=== PATIENT | female | born 1965 | race American Indian/Alaskan Native ===

== ENCOUNTER 2020-03-10 19:25 | Inpatient (IN) | payer MEDICAID ==
[2020-03-10] MEDS ORDERED: Acetaminophen 500 MG Tab PO ONE (20:39)
[2020-03-10] MEDS ORDERED: Sodium Chloride 0.9% 1,000 ML IV SCH ×2 (20:45→23:16)
--- NOTE | 2020-03-10 20:46 | EDM.PDOC ---
ED HPI GENERAL MEDICAL PROBLEM - General Chief Complaint: Skin Complaint Stated Complaint: REDNESS ON LEFT BREAST, ARM Time Seen by Provider: 03/10/20 20:23 Source of Information: Reports: Patient History Limitations: Reports: No Limitations - History of Present Illness INITIAL COMMENTS - FREE TEXT/NARRATIVE: 54 yo female presents to the ER with fever associated with left tender red and hot skin of her breast. PMHx of breast CA with lumpectomy and lymph node removal on the left. redness and pain started 4 days ago and has progressively worsened. She did spend time outside at her brothers house the day that the redness began and thinks she may have alpohnso bit by something. She has not taken her medications for the day. Her blood pressure on arrival was elevated. 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: Musculoskeletal History: Reports: Fibromyalgia, RA Endocrine/Metabolic History: Reports: Diabetes, Type II Oncologic (Cancer) History: Reports: Breast - Infectious Disease History Infectious Disease History: Reports: Chicken Pox - Past Surgical History GI Surgical History: Reports: Cholecystectomy, Hernia, Inguinal, Hernia Repair/Other Female Surgical History: Reports: Section, D&C Oncologic Surgical History: Reports: Lumpectomy Social & Family History - Tobacco Use Smoking Status *Q: Current Every Day Smoker Years of Tobacco use: 40 Packs/Tins Daily: 0.5 - Caffeine Use Caffeine Use: Reports: Coffee, Tea Caffeine Use Comment: 1.5 cups of coffee per day - Recreational Drug Use Recreational Drug Use: Yes Drug Use in Last 12 Months: No Recreational Drug Type: Reports: Marijuana/Hashish ED ROS GENERAL - Review of Systems Review Of Systems: See Below Constitutional: Reports: Fever, Chills, Fatigue Respiratory: Denies: Shortness of Breath, Wheezing Cardiovascular: Denies: Chest Pain GI/Abdominal: Reports: Nausea. Denies: Abdominal Pain Skin: Reports: Rash Neurological: Denies: Dizziness, Headache ED EXAM, SKIN/RASH Exam: See Below Exam Limited By: No Limitations General Appearance: Alert, WD/WN, No Apparent Distress Head: Atraumatic, Normocephalic Neck: Supple, Non-Tender Respiratory/Chest: No Respiratory Distress, Lungs Clear, Normal Breath Sounds. No: Crackles, Rhonchi, Wheezing Cardiovascular: Regular Rate, Rhythm, No Murmur GI/Abdominal: Normal Bowel Sounds, Soft, Non-Tender Skin: Warm, Dry, Intact, Rash, Other (warm to the touch, moderate erythema of entire left breast radiating into upper left arm. very painful to the touch, no source wound identified) Course - Vital Signs Last Recorded V/S: Last Vital Signs Temp 38.8 C H 03/10/20 21:17 Pulse 122 H 03/10/20 20:16 Resp 20 03/10/20 20:16 BP 171/101 H 03/10/20 20:16 Pulse Ox 98 03/10/20 20:16 - Orders/Labs/Meds Orders: Active Orders 24 hr Category Date Time Status CULTURE BLOOD [BC] Stat Lab 03/10/20 20:45 Received CULTURE BLOOD [BC] Stat Lab 03/10/20 20:45 Received Sodium Chloride 0.9% [Normal Saline] 1,000 ml Med 03/10/20 20:45 Active IV ASDIRECTED Medication Orders Sodium Chloride (Normal Saline) 1,000 mls @ 250 mls/hr IV ASDIRECTED MADYSON Last Admin: 03/10/20 20:52 Dose: 250 mls/hr Documented by: TEODORO Labs: Laboratory Tests 03/10/20 03/10/20 03/10/20 Range/Units 20:37 20:45 20:45 WBC 15.0 H (4.5-11.0) K/uL RBC 4.82 (3.30-5.50) M/uL Hgb 13.5 D (12.0-15.0) g/dL Hct 40.2 (36.0-48.0) % MCV 83 (80-98) fL MCH 28 (27-31) pg MCHC 34 (32-36) % Plt Count 225 (150-400) K/uL Neut % (Auto) 86 H (36-66) % Lymph % (Auto) 10 L (24-44) % [place] % (Auto) 3 (2-6) % Eos % (Auto) 0 L (2-4) % Baso % (Auto) 0 (0-1) % Sodium 128 L (140-148) mmol/L Potassium 3.7 (3.6-5.2) mmol/L Chloride 94 L (100-108) mmol/L Carbon Dioxide 20 L (21-32) mmol/L Anion Gap 17.7 H (5.0-14.0) mmol/L BUN 12 (7-18) mg/dL Creatinine 1.1 H D (0.6-1.0) mg/dL Est Cr Clr Drug Dosing 49.31 mL/min Estimated GFR (MDRD) 51 L (>60) Glucose 348 H (74-106) mg/dL Lactic Acid 1.9 (0.4-2.0) mmol/L Calcium 8.9 (8.5-10.1) mg/dL Total Bilirubin 0.6 (0.2-1.0) mg/dL AST 32 (15-37) U/L ALT 37 (12-78) U/L Alkaline Phosphatase 101 (46-116) U/L Total Protein 7.7 (6.4-8.2) g/dL Albumin 2.7 L (3.4-5.0) g/dL Globulin 5.0 H (2.3-3.5) g/dL Albumin/Globulin Ratio 0.5 L (1.2-2.2) Meds: Medications Generic Name Dose Route Start Last Admin Trade Name Freq PRN Reason Stop Dose Admin Sodium Chloride 1,000 mls @ 250 mls/hr 03/10/20 20:45 03/10/20 20:52 Normal Saline IV 250 mls/hr ASDIRECTED MADYSON Administration Discontinued Medications Generic Name Dose Route Start Last Admin Trade Name Freq PRN Reason Stop Dose Admin Acetaminophen 1,000 mg 03/10/20 20:39 03/10/20 20:59 Tylenol Extra Strength PO 03/10/20 20:40 1,000 mg ONETIME ONE Administration Clindamycin Phosphate 300 mg/ 52 mls @ 150 mls/hr 03/10/20 20:50 08/16/20 20:56 Sodium Chloride IV 03/10/20 21:10 150 mls/hr ONETIME ONE Administration Departure - Departure Time of Disposition: 21:46 Disposition: Home, Self-Care 01 Condition: Fair Clinical Impression: Cellulitis of breast - Discharge Information *PRESCRIPTION DRUG MONITORING PROGRAM REVIEWED*: Not Applicable *COPY OF PRESCRIPTION DRUG MONITORING REPORT IN PATIENT SHAKIRA: Not Applicable Referrals: Ada Rojo I, SLUICE TENDER [Primary Care Provider] - Forms: ED Department Discharge Sepsis Event Note (ED) - Evaluation Sepsis Screening Result: No Definite Risk - Focused Exam Vital Signs: Vital Signs Temp Pulse Resp BP Pulse Ox 03/10/20 21:17 38.8 C H 03/10/20 20:16 38.9 C H 122 H 20 171/101 H 98 03/10/20 20:06 38.9 C H 122 H 20 171/101 H 98 - My Orders Last 24 Hours: My Active Orders 03/10/20 20:45 CULTURE BLOOD [BC] Stat CULTURE BLOOD [BC] Stat Sodium Chloride 0.9% [Normal Saline] 1,000 ml IV ASDIRECTED - Assessment/Plan Last 24 Hours: My Active Orders 03/10/20 20:45 CULTURE BLOOD [BC] Stat CULTURE BLOOD [BC] Stat Sodium Chloride 0.9% [Normal Saline] 1,000 ml IV ASDIRECTED
[2020-03-10] MEDS ORDERED: Ondansetron 4 MG Tab.DIS PO PRN (23:16)
[2020-03-10] MEDS ORDERED: Insulin Regular, Human 100 Units/ML 3 ML Vial SUBCUT ONE (23:16)
[2020-03-10] MEDS ORDERED: LORazepam 2 MG/ML SDV IV PRN (23:16)
[2020-03-10] MEDS ORDERED: Clotrimazole 1% Crm 30 GM Tube TOP SCH (23:16)
[2020-03-10] MEDS ORDERED: Albuterol 0.083% 2.5 MG/3 ML Neb Soln NEB PRN (23:16)
[2020-03-10] MEDS ORDERED: Acetaminophen 325 MG Tab PO PRN (23:16)
[2020-03-10] MEDS ORDERED: Docusate Sodium 100 MG Cap PO PRN (23:16)
[2020-03-11] MEDS: Acetaminophen/HYDROcodone 325-5 MG Tab PO PRN ×6 (00:03→21:30)
[2020-03-11] MEDS: Pregabalin 100 MG Cap PO SCH ×4 (00:04→20:24)
--- NOTE | 2020-03-11 00:32 | PCM.HP.2 ---
H&P History of Present Illness - General Date of Service: 03/10/20 Admit Problem/Dx: Admission Diagnosis/Problem Admission Diagnosis/Problem Cellulitis of breast Source of Information: Patient, Provider, RN History Limitations: Reports: No Limitations - History of Present Illness Initial Comments - Free Text/Narative: chief complaint: rash 54 yo female presents to the ER with fever associated with left tender red and hot skin of her breast. PMHx of breast CA with lumpectomy and lymph node removal on the left. redness and pain started 4 days ago and has progressively w orsened. She did spend time outside at her brothers house the day that the redness began and thinks she may have alphonso bit by something. She has not taken her medications for the day. Her blood pressure on arrival was elevated. She has had a large amount of family stress and feels "I haven't been caring for myself lately" Onset of Symptoms: Reports: Gradual Symptom Onset Date: 03/07/20 Duration of Symptoms: Reports: Day(s): (4), Getting Worse Location: Reports: Chest, Lower Extremity, Left Quality: Reports: Ache, Pressure Severity: Severe Improves with: Reports: None Worsens with: Reports: None Associated Symptoms: Reports: Fever/Chills, Loss of Appetite, Nausea/Vomiting Left Breast Pain Score (Numeric/FACES): 7 - Related Data Allergies/Adverse Reactions: Allergies Allergy/AdvReac Type Severity Reaction Status Date / Time morphine Allergy Itching Verified 03/10/20 20:18 Home Medications: Home Meds Pregabalin [Lyrica] 100 mg PO TID 10/09/14 [History] atenoloL [Atenolol] 50 mg PO DAILY 11/27/14 [History] Past Medical History Cardiovascular History: Reports: High Cholesterol, Hypertension 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: Musculoskeletal History: Reports: Fibromyalgia, RA Endocrine/Metabolic History: Reports: Diabetes, Type II Oncologic (Cancer) History: Reports: Breast - Infectious Disease History Infectious Disease History: Reports: Chicken Pox - Past Surgical History GI Surgical History: Reports: Cholecystectomy, Hernia, Inguinal, Hernia Repair/Other Female Surgical History: Reports: Section, D&C Oncologic Surgical History: Reports: Lumpectomy Social & Family History - Family History Family Medical History: Noncontributory - Tobacco Use Smoking Status *Q: Current Every Day Smoker Years of Tobacco use: 30 Packs/Tins Daily: 0.5 Used Tobacco, but Quit: No Second Hand Smoke Exposure: No - Caffeine Use Caffeine Use: Reports: Soda Caffeine Use Comment: 1.5 cups of coffee per day - Recreational Drug Use Recreational Drug Use: Yes Drug Use in Last 12 Months: No Recreational Drug Type: Reports: Marijuana/Hashish Recreational Drug Use Frequency: Daily - Living Situation & Occupation Living situation: Reports: with Significant Other (lives with SO in [place], [place].) H&P Review of Systems - Review of Systems: Review Of Systems: See Below General: Reports: Fever, Chills, Malaise, Weakness, Fatigue, Decreased Appetite HEENT: Reports: No Symptoms Pulmonary: Reports: No Symptoms Cardiovascular: Reports: No Symptoms Gastrointestinal: Reports: Nausea Genitourinary: Reports: No Symptoms Musculoskeletal: Reports: Muscle Pain (body aches), Muscle Stiffness (left upper arm pain) Skin: Reports: Erythema (left chest extends to left arm and left upper back) Psychiatric: Reports: No Symptoms Neurological: Reports: No Symptoms Hematologic/Lymphatic: Reports: No Symptoms Exam - Exam Exam: See Below - Vital Signs Vital Signs: Last Vital Signs Temp 37.7 C 03/10/20 23:16 Pulse 96 03/10/20 23:16 Resp 18 03/10/20 23:16 BP 127/82 03/10/20 23:16 Pulse Ox 97 03/10/20 23:16 Weight: 65.771 kg - Exam Quality Assessment: DVT Prophylaxis General: Alert, Oriented, Cooperative, Mild Distress HEENT: PERRLA, Hearing Intact, Mucosa Moist & Rector, Nares Patent, Normal Nasal Septum, Posterior Pharynx Clear, Conjunctiva Clear, EOMI, EACs Clear, TMs Clear Neck: Supple, Trachea Midline, 2 Lungs: Clear to Auscultation, Normal Respiratory Effort Cardiovascular: Regular Rate, Regular Rhythm, Normal S1, Normal S2 GI/Abdominal Exam: Normal Bowel Sounds, Soft, Non-Tender, No Organomegaly, No Distention, No Abnormal Bruit, No Mass, Pelvis Stable (Female) Exam: Deferred Rectal (Female) Exam: Deferred Back Exam: Other (left upper back with cellulitis-hot to touch, raised red irregular shaped rash) Extremities: Arm Pain (left arm with redness, warmth, pain), Increased Warmth (left arm), Redness (left arm) Peripheral Pulses: 2+: Radial (L), Radial (R), Dorsalis Pedis (L), Dorsalis Pedis (R) Skin: Warm, Dry, Other (erythematous rash noted to left upper chest, breast, left upper back and extend to left arm to mid forearm.) Neurological: Reflexes Equal Bilateral, Strength Equal Bilateral Neuro Extensive - Mental Status: Alert, Oriented x3, Normal Mood/Affect, Normal Cognition Neuro Extensive - Motor, Sensory, Reflexes: CN II-XII Intact, Normal Gait, Normal Reflexes Psychiatric: Alert, Normal Affect, Normal Mood - Patient Data Lab Results Last 24 hrs: Laboratory Results - last 24 hr 03/10/20 03/10/20 03/10/20 Range/Units 20:37 20:45 20:45 WBC 15.0 H (4.5-11.0) K/uL RBC 4.82 (3.30-5.50) M/uL Hgb 13.5 D (12.0-15.0) g/dL Hct 40.2 (36.0-48.0) % MCV 83 (80-98) fL MCH 28 (27-31) pg MCHC 34 (32-36) % Plt Count 225 (150-400) K/uL Neut % (Auto) 86 H (36-66) % Lymph % (Auto) 10 L (24-44) % [place] % (Auto) 3 (2-6) % Eos % (Auto) 0 L (2-4) % Baso % (Auto) 0 (0-1) % Sodium 128 L (140-148) mmol/L Potassium 3.7 (3.6-5.2) mmol/L Chloride 94 L (100-108) mmol/L Carbon Dioxide 20 L (21-32) mmol/L Anion Gap 17.7 H (5.0-14.0) mmol/L BUN 12 (7-18) mg/dL Creatinine 1.1 H D (0.6-1.0) mg/dL Est Cr Clr Drug Dosing 49.31 mL/min Estimated GFR (MDRD) 51 L (>60) Glucose 348 H (74-106) mg/dL Lactic Acid 1.9 (0.4-2.0) mmol/L Calcium 8.9 (8.5-10.1) mg/dL Total Bilirubin 0.6 (0.2-1.0) mg/dL AST 32 (15-37) U/L ALT 37 (12-78) U/L Alkaline Phosphatase 101 (46-116) U/L Total Protein 7.7 (6.4-8.2) g/dL Albumin 2.7 L (3.4-5.0) g/dL Globulin 5.0 H (2.3-3.5) g/dL Albumin/Globulin Ratio 0.5 L (1.2-2.2) Result Diagrams: 03/10/20 20:37 03/10/20 20:45 Sepsis Event Note - Evaluation Sepsis Screening Result: No Definite Risk - Focused Exam Vital Signs: Vital Signs Temp Pulse Resp BP Pulse Ox 03/10/20 23:16 37.7 C 96 18 127/82 97 03/10/20 23:11 36.0 C L 03/10/20 21:50 109 H 120/79 96 03/10/20 21:20 119 H 150/91 H 97 03/10/20 21:17 38.8 C H 03/10/20 20:45 118 H 141/89 H 98 03/10/20 20:16 38.9 C H 122 H 20 171/101 H 98 03/10/20 20:06 38.9 C H 122 H 20 171/101 H 98 - Problem List (1) Cellulitis SNOMED Code(s): 124340684 ICD Code: L03.90 - CELLULITIS, UNSPECIFIED Status: Acute Priority: High Current Visit: Yes Qualifiers: Site of cellulitis: trunk Site of cellulitis of trunk: chest wall Qualified Code(s): L03.313 - Cellulitis of chest wall (2) Cellulitis of breast SNOMED Code(s): 23405163 ICD Code: N61.0 - MASTITIS WITHOUT ABSCESS Status: Acute Priority: High Current Visit: Yes (3) Intertrigo SNOMED Code(s): 12973454 ICD Code: L30.4 - ERYTHEMA INTERTRIGO Status: Acute Priority: High Current Visit: Yes (4) Tobacco use SNOMED Code(s): 932159939 ICD Code: Z72.0 - TOBACCO USE Status: Acute Priority: High Current Visit: Yes (5) Diabetes type 2, uncontrolled SNOMED Code(s): 849518666, 381223430 ICD Code: E11.65 - TYPE 2 DIABETES MELLITUS WITH HYPERGLYCEMIA Status: Acute Priority: High Current Visit: Yes Qualifiers: Glycemic state: with hyperglycemia Qualified Code(s): E11.65 - Type 2 diabetes mellitus with hyperglycemia (6) Yeast dermatitis SNOMED Code(s): 98373890 ICD Code: B37.2 - CANDIDIASIS OF SKIN AND NAIL Status: Acute Priority: High Current Visit: Yes Problem List Initiated/Reviewed/Updated: Yes Orders Last 24hrs: Active Orders 24 hr Category Date Time Status Cardiac Monitoring [RC] CONTINUOUS Care 03/10/20 23:16 Active Diabetes Education [RC] Click to Edit Care 03/10/20 23:16 Active Diabetes Education [RC] Click to Edit Care 03/10/20 23:16 Active Intake and Output [RC] QSHIFT Care 03/10/20 23:16 Active Notify Provider Vital Signs [RC] ASDIRECTED Care 03/10/20 23:16 Active Notify Provider [RC] PRN Care 03/10/20 23:16 Active Oxygen Therapy [RC] PRN Care 03/10/20 23:16 Active Pulse Oximetry [RC] PRN Care 03/10/20 23:16 Active RT Aerosol Therapy [RC] ASDIRECTED Care 03/10/20 23:16 Active Up ad Geovanna [RC] ASDIRECTED Care 03/10/20 23:16 Active VTE/DVT Education [RC] Per Unit Routine Care 03/10/20 23:16 Active Vital Signs [RC] Q4H Care 03/10/20 23:16 Active Spiritual Care Follow Up [CONS] Routine Cons 03/10/20 23:16 Active Consistent Carbohydrate Diet [DIET] Diet 03/10/20 Breakfast Active BASIC METABOLIC PANEL,BMP [CHEM] AM Lab 03/11/20 05:11 Ordered CBC WITH AUTO DIFF [HEME] AM Lab 03/11/20 05:11 Ordered CULTURE BLOOD [BC] Stat Lab 03/10/20 20:45 Received CULTURE BLOOD [BC] Stat Lab 03/10/20 20:45 Received GLUCOSE POC LAB TO COLLECT JPM [POC] QIDACANDBED Lab 03/11/20 07:30 Ordered GLYCOSYLATED HEMOGLOBIN,HGBA1C [CHEM] Urgent Lab 03/10/20 22:57 Received UA W/MICROSCOPIC [URIN] Urgent Lab 03/10/20 23:16 Ordered Acetaminophen [Tylenol] Med 03/10/20 23:16 Active 650 mg PO Q4H PRN Acetaminophen/HYDROcodone [Hammond 325-5 MG] Med 03/10/20 23:16 Active 1 tab PO Q4H PRN Albuterol [Proventil Neb Soln] Med 03/10/20 23:16 Active 2.5 mg NEB Q4H PRN Clotrimazole [Lotrimin AF 1% Crm] Med 03/10/20 23:16 Active See Dose Instructions TOP BID Docusate Sodium [Colace] Med 03/10/20 23:16 Active 100 mg PO BID PRN Insulin Lispro [HumaLOG] Med 03/11/20 07:00 Active See Protocol SUBCUT QIDACANDBED LORazepam [Ativan] Med 03/10/20 23:16 Active 1 mg IV Q6H PRN Ondansetron [Zofran ODT] Med 03/10/20 23:16 Active 4 mg PO Q6H PRN Pregabalin [Lyrica] Med 03/10/20 23:16 Active 100 mg PO TID Sodium Chloride 0.9% [Normal Saline] 1,000 ml Med 03/10/20 23:16 Active IV ASDIRECTED Vancomycin 1 gm Med 03/10/20 23:45 Active Sodium Chloride 0.9% [Normal Saline] 250 ml IV ONETIME Vancomycin 1 gm Med 03/10/20 23:45 Pending Sodium Chloride 0.9% [Normal Saline] 250 ml IV Q12H atenoloL [Tenormin] Med 03/11/20 09:00 Active 50 mg PO DAILY cefTAZidime Pentahydrate [Fortaz] 1 gm Med 03/11/20 00:00 Active Sodium Chloride 0.9% [Normal Saline] 50 ml IV Q8H Sequential Compression Device [OM.PC] Per Unit Routine Oth 03/10/20 23:16 Ordered Resuscitation Status Routine Resus Stat 03/10/20 23:00 Ordered Medication Orders Acetaminophen (Tylenol) 650 mg PO Q4H PRN PRN Reason: Pain (Mild 1-3)/fever Hydrocodone Bitart/Acetaminophen (Hammond 325-5 Mg) 1 tab PO Q4H PRN PRN Reason: Pain (moderate 4-6) Last Admin: 03/11/20 00:03 Dose: 1 tab Documented by: ZAHEER Albuterol (Proventil Neb Soln) 2.5 mg NEB Q4H PRN PRN Reason: Shortness Of Breath/wheezing Atenolol (Tenormin) 50 mg PO DAILY [facility] Clotrimazole (Lotrimin Af 1% Crm) 0 gm TOP BID [facility] Last Admin: 03/11/20 00:19 Dose: Not Given Documented by: ZAHEER Docusate Sodium (Colace) 100 mg PO BID PRN PRN Reason: Constipation Ceftazidime 1 gm/ Sodium (Chloride) 50 mls @ 100 mls/hr IV Q8H [facility] Last Admin: 03/11/20 00:18 Dose: 100 mls/hr Documented by: ZAHEER Sodium Chloride (Normal Saline) 1,000 mls @ 125 mls/hr IV ASDIRECTED [facility] Vancomycin HCl 1 gm/ Sodium (Chloride) 250 mls @ 150 mls/hr IV Q12H [facility] Vancomycin HCl 1 gm/ Sodium (Chloride) 250 mls @ 150 mls/hr IV ONETIME ONE Stop: 03/11/20 01:24 Insulin Human Lispro (Humalog) 0 unit SUBCUT QIDACANDBED [facility]; Protocol Lorazepam (Ativan) 1 mg IV Q6H PRN PRN Reason: Nausea/Vomiting Ondansetron HCl (Zofran Odt) 4 mg PO Q6H PRN PRN Reason: Nausea able to take PO Pregabalin (Lyrica) 100 mg PO TID [facility] Last Admin: 03/11/20 00:04 Dose: 100 mg Documented by: ZAHEER Assessment/Plan Comment:: ASSESSMENT AND PLAN- CELLULITIS OF LEFT BREAST, CHEST, BACK AND LEFT ARM 54 yo female presents to the ER with fever associated with left tender red and hot skin of her breast. PMHx of breast CA with lumpectomy and lymph node removal on the left. redness and pain started 4 days ago and has progressively worsened. She did spend time outside at her brothers house the day that the redness began and thinks she may have alphonso bit by something. She has not taken her medications for the day. Her blood pressure on arrival was elevated. She has had a large amount of family stress and feels "I haven't been caring for myself lately" ER course vital signs 38.9-122-20 B/P 171/101 labs elevated WBC 15.0, Na 128, K+ 3.7, anion gap 17.7, creatinine 1.1, glucose 348. meds given IV fluids, Clindamycin 300mg IV. discussed with patient need for admission for further care. Cellulitis of breast, chest, back and left arm with early sepsis -IV fluids for hydration, given 2 liter then rate of 125 ml/hr -IV Vancomycin 1 gm every 12 hours -IV Ceftazidime 1 gm every 8 hours -medicate for pain -blood cultures x 2 pending -am lab CBC, BMP DIABETES TYPE 2-not controlled- has not been taking insulin for a long time maybe last dose 2 or 3 years ago. admit blood glucose 348. given Insulin regular 10 units subcut. -HgbA1c pending -blood glucose before meals and at bedtime -Insulin NovoLog medium dose sliding scale coverage -am labs bmp Yeast rash -clotrimazole 1 % creme to rash under breast bid MAINTENANCE ISSUES -DVT prophylaxis- Lovenox 30 mg subcut -GI prophylaxis- Protonix 40 mg daily -Mejia catheter- not indicated -Nutrition- consistent carb diet -Nicotine dependence- Nicotine patch and gum prn CODE STATUS-FULL CODE ADMISSION STATUS-patient will be admitted to inpatient status, expect at least a 2 night hospital stay for evaluation and management of problems as outlined above. At the time of this admission I do not reasonably expected evaluation and management of this problem will require more than a 96 hour hospital stay. DISPOSITION-anticipate discharge to home after the hospital stay. PRIMARY CARE PROVIDER- Janina Rojo NP, [facility] HOSPITALIST- Dr. Cavazos - Mortality Measure Prognosis:: Good - Mortality Measure Prognosis:: Good
[2020-03-11] MEDS: Sodium Chloride 0.9% 1,000 ML IV SCH ×2 (03:48→11:58)
[2020-03-11] MEDS: Insulin Lispro 100 Unit/ML 3 ML KwikPen SUBCUT SCH ×4 (08:13→21:27)
[2020-03-11] MEDS: Atenolol 25 MG Tab PO SCH (08:38)
[2020-03-11] MEDS ORDERED: Clotrimazole 1% Crm 30 GM Tube TOP SCH (09:00)
[2020-03-11] MEDS ORDERED: Potassium Chloride 20 MEQ Tab.ER PO ONE ×2 (09:00→17:00)
[2020-03-11 10:39] LABS: HEMOGLOBIN A1C 10.2 % (4.5-6.2)
--- NOTE | 2020-03-11 13:50 | PCM.PN ---
- General Info Date of Service: 03/11/20 Subjective Update: Ms. Forde is a 54-year-old woman who was admitted through the emergency department last night with cellulitis of her left breast and extending into the left back. White blood cell count was found to be elevated and cultures have been obtained. She is currently treated with vancomycin and ceftazidime. Vital signs have been stable but she has not noted significant improvement in the cellulitis to this point. Functional Status: Reports: Tolerating Diet, Ambulating, Urinating - Review of Systems General: Reports: Weakness, Fatigue. Denies: Fever, Chills Pulmonary: Reports: No Symptoms Cardiovascular: Reports: No Symptoms Gastrointestinal: Reports: No Symptoms Skin: Reports: Other (Erythema left breast and back) - Patient Data Vitals - Most Recent: Last Vital Signs Temp 98.7 F 03/11/20 11:46 Pulse 81 03/11/20 11:46 Resp 20 03/11/20 11:46 BP 135/83 03/11/20 11:46 Pulse Ox 98 03/11/20 11:46 Weight - Most Recent: 146 lb I&O - Last 24 Hours: Intake & Output 03/10/20 03/11/20 03/11/20 22:59 06:59 14:59 Intake Total 2081 700 Output Total 650 Balance 1431 700 Lab Results Last 24 Hours: Laboratory Results - last 24 hr 03/10/20 03/10/20 03/10/20 Range/Units 20:37 20:45 20:45 WBC 15.0 H (4.5-11.0) K/uL RBC 4.82 (3.30-5.50) M/uL Hgb 13.5 D (12.0-15.0) g/dL Hct 40.2 (36.0-48.0) % MCV 83 (80-98) fL MCH 28 (27-31) pg MCHC 34 (32-36) % Plt Count 225 (150-400) K/uL Neut % (Auto) 86 H (36-66) % Lymph % (Auto) 10 L (24-44) % [place] % (Auto) 3 (2-6) % Eos % (Auto) 0 L (2-4) % Baso % (Auto) 0 (0-1) % Sodium 128 L (140-148) mmol/L Potassium 3.7 (3.6-5.2) mmol/L Chloride 94 L (100-108) mmol/L Carbon Dioxide 20 L (21-32) mmol/L Anion Gap 17.7 H (5.0-14.0) mmol/L BUN 12 (7-18) mg/dL Creatinine 1.1 H D (0.6-1.0) mg/dL Est Cr Clr Drug Dosing 49.31 mL/min Estimated GFR (MDRD) 51 L (>60) Glucose 348 H (74-106) mg/dL POC Glucose (74-106) MG/DL Hemoglobin A1c (4.5-6.2) % Lactic Acid 1.9 (0.4-2.0) mmol/L Calcium 8.9 (8.5-10.1) mg/dL Total Bilirubin 0.6 (0.2-1.0) mg/dL AST 32 (15-37) U/L ALT 37 (12-78) U/L Alkaline Phosphatase 101 (46-116) U/L Total Protein 7.7 (6.4-8.2) g/dL Albumin 2.7 L (3.4-5.0) g/dL Globulin 5.0 H (2.3-3.5) g/dL Albumin/Globulin Ratio 0.5 L (1.2-2.2) Urine Color (YELLOW) Urine Appearance (CLEAR) Urine pH (5.0-8.0) Ur Specific [place] (1.008-1.030) Urine Protein (NEGATIVE) mg/dL Urine Glucose (UA) (NEGATIVE) mg/dL Urine Ketones (NEGATIVE) mg/dL Urine Occult Blood (NEGATIVE) Urine Nitrite (NEGATIVE) Urine Bilirubin (NEGATIVE) Urine Urobilinogen (0.2-1.0) EU/dL Ur Leukocyte Esterase (NEGATIVE) Urine RBC (0-5) Urine WBC (0-5) Ur Epithelial Cells Amorphous Sediment Urine Bacteria Urine Mucus 03/10/20 03/10/20 03/11/20 Range/Units 22:57 23:16 04:10 WBC 13.0 H (4.5-11.0) K/uL RBC 3.90 (3.30-5.50) M/uL Hgb 10.8 L D (12.0-15.0) g/dL Hct 33.0 L (36.0-48.0) % MCV 85 (80-98) fL MCH 28 (27-31) pg MCHC 33 (32-36) % Plt Count 213 (150-400) K/uL Neut % (Auto) 77 H (36-66) % Lymph % (Auto) 16 L (24-44) % [place] % (Auto) 6 (2-6) % Eos % (Auto) 0 L (2-4) % Baso % (Auto) 0 (0-1) % Sodium (140-148) mmol/L Potassium (3.6-5.2) mmol/L Chloride (100-108) mmol/L Carbon Dioxide (21-32) mmol/L Anion Gap (5.0-14.0) mmol/L BUN (7-18) mg/dL Creatinine (0.6-1.0) mg/dL Est Cr Clr Drug Dosing mL/min Estimated GFR (MDRD) (>60) Glucose (74-106) mg/dL POC Glucose (74-106) MG/DL Hemoglobin A1c 10.2 H (4.5-6.2) % Lactic Acid (0.4-2.0) mmol/L Calcium (8.5-10.1) mg/dL Total Bilirubin (0.2-1.0) mg/dL AST (15-37) U/L ALT (12-78) U/L Alkaline Phosphatase (46-116) U/L Total Protein (6.4-8.2) g/dL Albumin (3.4-5.0) g/dL Globulin (2.3-3.5) g/dL Albumin/Globulin Ratio (1.2-2.2) Urine Color Yellow (YELLOW) Urine Appearance Clear (CLEAR) Urine pH 6.0 (5.0-8.0) Ur Specific [place] 1.020 (1.008-1.030) Urine Protein 100 H (NEGATIVE) mg/dL Urine Glucose (UA) 250 H (NEGATIVE) mg/dL Urine Ketones Negative (NEGATIVE) mg/dL Urine Occult Blood Trace-intact H (NEGATIVE) Urine Nitrite Negative (NEGATIVE) Urine Bilirubin Negative (NEGATIVE) Urine Urobilinogen 0.2 (0.2-1.0) EU/dL Ur Leukocyte Esterase Negative (NEGATIVE) Urine RBC 0-5 (0-5) Urine WBC 0-5 (0-5) Ur Epithelial Cells Few Amorphous Sediment Not seen Urine Bacteria Few Urine Mucus Not seen 03/11/20 03/11/20 03/11/20 Range/Units 04:10 07:30 11:30 WBC (4.5-11.0) K/uL RBC (3.30-5.50) M/uL Hgb (12.0-15.0) g/dL Hct (36.0-48.0) % MCV (80-98) fL MCH (27-31) pg MCHC (32-36) % Plt Count (150-400) K/uL Neut % (Auto) (36-66) % Lymph % (Auto) (24-44) % [place] % (Auto) (2-6) % Eos % (Auto) (2-4) % Baso % (Auto) (0-1) % Sodium 136 L (140-148) mmol/L Potassium 3.2 L (3.6-5.2) mmol/L Chloride 104 (100-108) mmol/L Carbon Dioxide 21 (21-32) mmol/L Anion Gap 14.2 H (5.0-14.0) mmol/L BUN 9 (7-18) mg/dL Creatinine 0.9 (0.6-1.0) mg/dL Est Cr Clr Drug Dosing 60.27 mL/min Estimated GFR (MDRD) > 60 (>60) Glucose 173 H (74-106) mg/dL POC Glucose 171 H 259 H (74-106) MG/DL Hemoglobin A1c (4.5-6.2) % Lactic Acid (0.4-2.0) mmol/L Calcium 7.6 L (8.5-10.1) mg/dL Total Bilirubin (0.2-1.0) mg/dL AST (15-37) U/L ALT (12-78) U/L Alkaline Phosphatase (46-116) U/L Total Protein (6.4-8.2) g/dL Albumin (3.4-5.0) g/dL Globulin (2.3-3.5) g/dL Albumin/Globulin Ratio (1.2-2.2) Urine Color (YELLOW) Urine Appearance (CLEAR) Urine pH (5.0-8.0) Ur Specific [place] (1.008-1.030) Urine Protein (NEGATIVE) mg/dL Urine Glucose (UA) (NEGATIVE) mg/dL Urine Ketones (NEGATIVE) mg/dL Urine Occult Blood (NEGATIVE) Urine Nitrite (NEGATIVE) Urine Bilirubin (NEGATIVE) Urine Urobilinogen (0.2-1.0) EU/dL Ur Leukocyte Esterase (NEGATIVE) Urine RBC (0-5) Urine WBC (0-5) Ur Epithelial Cells Amorphous Sediment Urine Bacteria Urine Mucus Med Orders - Current: Current Medications Acetaminophen (Tylenol) 650 mg PO Q4H PRN PRN Reason: Pain (Mild 1-3)/fever Hydrocodone Bitart/Acetaminophen ([place] 325-5 Mg) 1 tab PO Q4H PRN PRN Reason: Pain (moderate 4-6) Last Admin: 03/11/20 13:20 Dose: 1 tab Documented by: Albuterol (Proventil Neb Soln) 2.5 mg NEB Q4H PRN PRN Reason: Shortness Of Breath/wheezing Atenolol (Tenormin) 50 mg PO DAILY [facility] Last Admin: 03/11/20 08:38 Dose: 50 mg Documented by: Docusate Sodium (Colace) 100 mg PO BID PRN PRN Reason: Constipation Ceftazidime 1 gm/ Sodium (Chloride) 50 mls @ 100 mls/hr IV Q8H [facility] Last Admin: 03/11/20 08:38 Dose: 100 mls/hr Documented by: Vancomycin HCl 1 gm/ Sodium (Chloride) 250 mls @ 150 mls/hr IV Q12H [facility] Last Admin: 03/11/20 13:13 Dose: 150 mls/hr Documented by: Insulin Human Lispro (Humalog) 0 unit SUBCUT QIDACANDBED [facility]; Protocol Last Admin: 03/11/20 11:56 Dose: 3 unit Documented by: Lorazepam (Ativan) 1 mg IV Q6H PRN PRN Reason: Nausea/Vomiting Nystatin (Nystop) 0 gm TOP QID [facility] Ondansetron HCl (Zofran Odt) 4 mg PO Q6H PRN PRN Reason: Nausea able to take PO Pregabalin (Lyrica) 100 mg PO TID [facility] Last Admin: 03/11/20 13:20 Dose: 100 mg Documented by: Discontinued Medications Acetaminophen (Tylenol Extra Strength) 1,000 mg PO ONETIME ONE Stop: 03/10/20 20:40 Last Admin: 03/10/20 20:59 Dose: 1,000 mg Documented by: Clotrimazole (Lotrimin Af 1% Crm) 0 gm TOP BID [facility] Last Admin: 03/11/20 00:19 Dose: Not Given Documented by: Clotrimazole (Lotrimin Af 1% Crm) 0 gm TOP BID [facility] Last Admin: 03/11/20 08:37 Dose: 1 applic Documented by: Sodium Chloride (Normal Saline) 1,000 mls @ 250 mls/hr IV ASDIRECTED [facility] Last Admin: 03/10/20 20:52 Dose: 250 mls/hr Documented by: Clindamycin Phosphate 300 mg/ (Sodium Chloride) 52 mls @ 150 mls/hr IV ONETIME ONE Stop: 03/10/20 21:10 Last Admin: 03/10/20 20:56 Dose: 150 mls/hr Documented by: Sodium Chloride (Normal Saline) 1,000 mls @ 999 mls/hr IV BOLUS [facility] Stop: 03/11/20 00:17 Last Admin: 03/11/20 03:47 Dose: 999 mls/hr Documented by: Sodium Chloride (Normal Saline) 1,000 mls @ 125 mls/hr IV ASDIRECTED [facility] Last Admin: 03/11/20 11:58 Dose: 125 mls/hr Documented by: Vancomycin HCl 1 gm/ Sodium (Chloride) 250 mls @ 150 mls/hr IV ONETIME ONE Stop: 03/11/20 01:24 Last Admin: 03/11/20 00:57 Dose: 150 mls/hr Documented by: Insulin Human Regular (Humulin R) 10 unit SUBCUT ONETIME ONE Stop: 03/10/20 23:17 Last Admin: 03/11/20 00:02 Dose: 10 units Documented by: Potassium Chloride (Klor-Con M20) 40 meq PO ONETIME ONE Stop: 03/11/20 09:01 Last Admin: 03/11/20 10:38 Dose: 40 meq Documented by: - Exam Quality Assessment: DVT Prophylaxis General: Alert, Oriented, Moderate Distress Lungs: Clear to Auscultation, Normal Respiratory Effort Cardiovascular: Regular Rate, Regular Rhythm, No Murmurs GI/Abdominal Exam: Soft, Non-Tender, No Organomegaly, No Distention Skin: Other (Erythema with increased warmth left back and breast) Sepsis Event Note - Evaluation Sepsis Screening Result: Sepsis Risk - Focused Exam Vital Signs: Vital Signs Temp Temp Pulse Pulse Resp BP BP 03/11/20 11:46 98.7 F 81 20 135/83 03/11/20 08:38 99 139/73 03/11/20 08:05 100.3 F 99 20 131/73 03/11/20 03:53 100.3 F 86 18 114/52 L Pulse Ox 03/11/20 11:46 98 03/11/20 08:38 03/11/20 08:05 96 03/11/20 03:53 97 - Problem List Review Problem List Initiated/Reviewed/Updated: Yes - My Orders Last 24 Hours: My Active Orders 03/11/20 13:43 Convert IV to Saline Lock [OM.PC] Routine 03/11/20 13:45 Lactobacillus Rhamnosus GG [Culturelle] 1 cap PO BID 03/11/20 16:00 Nystatin [Nystop] See Dose Instructions TOP QID 03/12/20 05:00 BASIC METABOLIC PANEL,BMP [CHEM] Timed CBC WITH AUTO DIFF [HEME] Timed - Plan Plan:: ASSESSMENT AND PLAN Cellulitis of breast, chest, back and left arm with early sepsis-is admission but no significant improvement thus far in cellulitis -Lock IV -IV Vancomycin 1 gm every 12 hours -IV Ceftazidime 1 gm every 8 hours -medicate for pain -blood cultures x 2 pending -am lab CBC, BMP DIABETES TYPE 2-not controlled- has not been taking insulin for a long time maybe last dose 2 or 3 years ago. admit blood glucose 348. given Insulin regular 10 units subcut. -HgbA1c pending -blood glucose before meals and at bedtime -Insulin NovoLog medium dose sliding scale coverage -am labs bmp Yeast rash -Nystatin powder 4 times daily MAINTENANCE ISSUES -DVT prophylaxis- Lovenox 30 mg subcut -GI prophylaxis- Protonix 40 mg daily -Mejia catheter- not indicated -Nutrition- consistent carb diet -Nicotine dependence- Nicotine patch and gum prn CODE STATUS-FULL CODE ADMISSION STATUS-patient will be admitted to inpatient status, expect at least a 2 night hospital stay for evaluation and management of problems as outlined above. At the time of this admission I do not reasonably expected evaluation and management of this problem will require more than a 96 hour hospital stay. DISPOSITION-anticipate discharge to home after the hospital stay. PRIMARY CARE PROVIDER- Janina Rojo NP, [facility] HOSPITALIST- Dr. Cavazos - Mortality Measure Prognosis:: Good
[2020-03-11] MEDS: Nystatin Topical Powder 15 GM Bottle TOP SCH ×2 (16:26→21:30)
[2020-03-11] MEDS: Lactobacillus Rhamnosus GG (Probiotic) Cap PO SCH ×2 (16:27→20:24)
[2020-03-12] MEDS: Nystatin Topical Powder 15 GM Bottle TOP SCH ×4 (06:17→21:02)
[2020-03-12] MEDS: Acetaminophen/HYDROcodone 325-5 MG Tab PO PRN ×4 (06:22→21:13)
[2020-03-12] MEDS: Insulin Lispro 100 Unit/ML 3 ML KwikPen SUBCUT SCH ×4 (07:52→21:02)
[2020-03-12] MEDS: Lactobacillus Rhamnosus GG (Probiotic) Cap PO SCH ×2 (08:02→21:02)
[2020-03-12] MEDS: Atenolol 25 MG Tab PO SCH (08:02)
[2020-03-12] MEDS: Pregabalin 100 MG Cap PO SCH ×3 (08:05→21:13)
--- NOTE | 2020-03-12 13:57 | PCM.PN ---
- General Info Date of Service: 03/12/20 Subjective Update: Ms. Forde has remained stable over the last 24 hours. Vital signs have been good and she has remained afebrile. Area of cellulitis less tender and pruritic. Appetite and strength seem to be improved. Functional Status: Reports: Tolerating Diet, Ambulating, Urinating - Review of Systems General: Reports: Weakness, Fatigue. Denies: Fever, Chills Pulmonary: Reports: No Symptoms Cardiovascular: Reports: No Symptoms Gastrointestinal: Reports: No Symptoms Skin: Reports: Pruritis, Other (Cellulitis left breast and back) - Patient Data Vitals - Most Recent: Last Vital Signs Temp 98.1 F 03/12/20 11:17 Pulse 76 03/12/20 11:17 Resp 16 03/12/20 11:17 BP 134/78 03/12/20 11:17 Pulse Ox 98 03/12/20 11:17 Weight - Most Recent: 145 lb 15.983 oz I&O - Last 24 Hours: Intake & Output 03/11/20 03/12/20 03/12/20 22:59 06:59 14:59 Intake Total 1630 800 740 Balance 1630 800 740 Lab Results Last 24 Hours: Laboratory Results - last 24 hr 03/11/20 03/11/20 03/12/20 Range/Units 16:30 21:00 05:58 WBC 12.1 H (4.5-11.0) K/uL RBC 3.96 (3.30-5.50) M/uL Hgb 10.9 L (12.0-15.0) g/dL Hct 33.9 L (36.0-48.0) % MCV 86 (80-98) fL MCH 28 (27-31) pg MCHC 32 (32-36) % Plt Count 236 (150-400) K/uL Neut % (Auto) 69 H (36-66) % Lymph % (Auto) 24 (24-44) % [place] % (Auto) 7 H (2-6) % Eos % (Auto) 1 L (2-4) % Baso % (Auto) 0 (0-1) % Sodium (140-148) mmol/L Potassium (3.6-5.2) mmol/L Chloride (100-108) mmol/L Carbon Dioxide (21-32) mmol/L Anion Gap (5.0-14.0) mmol/L BUN (7-18) mg/dL Creatinine (0.6-1.0) mg/dL Est Cr Clr Drug Dosing mL/min Estimated GFR (MDRD) (>60) Glucose (74-106) mg/dL POC Glucose 311 H 270 H (74-106) MG/DL Calcium (8.5-10.1) mg/dL 03/12/20 03/12/20 03/12/20 Range/Units 05:58 07:30 11:20 WBC (4.5-11.0) K/uL RBC (3.30-5.50) M/uL Hgb (12.0-15.0) g/dL Hct (36.0-48.0) % MCV (80-98) fL MCH (27-31) pg MCHC (32-36) % Plt Count (150-400) K/uL Neut % (Auto) (36-66) % Lymph % (Auto) (24-44) % [place] % (Auto) (2-6) % Eos % (Auto) (2-4) % Baso % (Auto) (0-1) % Sodium 136 L (140-148) mmol/L Potassium 3.6 (3.6-5.2) mmol/L Chloride 104 (100-108) mmol/L Carbon Dioxide 23 (21-32) mmol/L Anion Gap 12.6 (5.0-14.0) mmol/L BUN 8 (7-18) mg/dL Creatinine 0.8 (0.6-1.0) mg/dL Est Cr Clr Drug Dosing 67.80 mL/min Estimated GFR (MDRD) > 60 (>60) Glucose 188 H (74-106) mg/dL POC Glucose 177 H 259 H (74-106) MG/DL Calcium 8.3 L (8.5-10.1) mg/dL [place] Results Last 24 Hours: Microbiology 03/10/20 20:45 Aerobic Blood Culture - Preliminary Blood NO GROWTH AFTER 1 DAY Anaerobic Blood Culture - Preliminary NO GROWTH AFTER 1 DAY 03/10/20 20:45 Aerobic Blood Culture - Preliminary Blood NO GROWTH AFTER 1 DAY Anaerobic Blood Culture - Preliminary NO GROWTH AFTER 1 DAY Med Orders - Current: Current Medications Acetaminophen (Tylenol) 650 mg PO Q4H PRN PRN Reason: Pain (Mild 1-3)/fever Hydrocodone Bitart/Acetaminophen ([place] 325-5 Mg) 1 tab PO Q4H PRN PRN Reason: Pain (moderate 4-6) Last Admin: 03/12/20 10:24 Dose: 1 tab Documented by: Albuterol (Proventil Neb Soln) 2.5 mg NEB Q4H PRN PRN Reason: Shortness Of Breath/wheezing Atenolol (Tenormin) 50 mg PO DAILY [facility] Last Admin: 03/12/20 08:02 Dose: 50 mg Documented by: Docusate Sodium (Colace) 100 mg PO BID PRN PRN Reason: Constipation Ceftazidime 1 gm/ Sodium (Chloride) 50 mls @ 100 mls/hr IV Q8H [facility] Last Admin: 03/12/20 07:51 Dose: 100 mls/hr Documented by: Vancomycin HCl 1 gm/ Sodium (Chloride) 250 mls @ 150 mls/hr IV Q12H [facility] Last Admin: 03/12/20 12:49 Dose: 150 mls/hr Documented by: Insulin Human Lispro (Humalog) 0 unit SUBCUT QIDACANDBED [facility]; Protocol Last Admin: 03/12/20 11:47 Dose: 3 unit Documented by: Lactobacillus Rhamnosus (Culturelle) 1 cap PO BID [facility] Last Admin: 03/12/20 08:02 Dose: 1 cap Documented by: Lorazepam (Ativan) 1 mg IV Q6H PRN PRN Reason: Nausea/Vomiting Nystatin (Nystop) 0 gm TOP QID [facility] Last Admin: 03/12/20 10:25 Dose: 1 applic Documented by: Ondansetron HCl (Zofran Odt) 4 mg PO Q6H PRN PRN Reason: Nausea able to take PO Pregabalin (Lyrica) 100 mg PO TID [facility] Last Admin: 03/12/20 13:27 Dose: 100 mg Documented by: Discontinued Medications Acetaminophen (Tylenol Extra Strength) 1,000 mg PO ONETIME ONE Stop: 03/10/20 20:40 Last Admin: 03/10/20 20:59 Dose: 1,000 mg Documented by: Clotrimazole (Lotrimin Af 1% Crm) 0 gm TOP BID [facility] Last Admin: 03/11/20 00:19 Dose: Not Given Documented by: Clotrimazole (Lotrimin Af 1% Crm) 0 gm TOP BID [facility] Last Admin: 03/11/20 08:37 Dose: 1 applic Documented by: Sodium Chloride (Normal Saline) 1,000 mls @ 250 mls/hr IV ASDIRECTED [facility] Last Admin: 03/10/20 20:52 Dose: 250 mls/hr Documented by: Clindamycin Phosphate 300 mg/ (Sodium Chloride) 52 mls @ 150 mls/hr IV ONETIME ONE Stop: 03/10/20 21:10 Last Admin: 03/10/20 20:56 Dose: 150 mls/hr Documented by: Sodium Chloride (Normal Saline) 1,000 mls @ 999 mls/hr IV BOLUS [facility] Stop: 03/11/20 00:17 Last Admin: 03/11/20 03:47 Dose: 999 mls/hr Documented by: Sodium Chloride (Normal Saline) 1,000 mls @ 125 mls/hr IV ASDIRECTED [facility] Last Admin: 03/11/20 11:58 Dose: 125 mls/hr Documented by: Vancomycin HCl 1 gm/ Sodium (Chloride) 250 mls @ 150 mls/hr IV ONETIME ONE Stop: 03/11/20 01:24 Last Admin: 03/11/20 00:57 Dose: 150 mls/hr Documented by: Insulin Human Regular (Humulin R) 10 unit SUBCUT ONETIME ONE Stop: 03/10/20 23:17 Last Admin: 03/11/20 00:02 Dose: 10 units Documented by: Potassium Chloride (Klor-Con M20) 40 meq PO ONETIME ONE Stop: 03/11/20 09:01 Last Admin: 03/11/20 10:38 Dose: 40 meq Documented by: Potassium Chloride (Klor-Con M20) 40 meq PO ONETIME ONE Stop: 03/11/20 17:01 Last Admin: 03/11/20 16:27 Dose: 40 meq Documented by: - Exam Quality Assessment: DVT Prophylaxis General: Alert, Oriented, Cooperative, Moderate Distress Lungs: Clear to Auscultation, Normal Respiratory Effort Cardiovascular: Regular Rate, Regular Rhythm, No Murmurs GI/Abdominal Exam: Soft, Non-Tender, No Organomegaly, No Distention Skin: Other (Area of cellulitis less extensive and erythematous) Sepsis Event Note - Evaluation Sepsis Screening Result: No Definite Risk - Focused Exam Vital Signs: Vital Signs Temp Pulse Pulse Resp BP BP Pulse Ox 03/12/20 11:17 98.1 F 76 16 134/78 98 03/12/20 08:02 81 159/91 H 03/12/20 07:55 98.2 F 81 18 159/91 H 96 03/12/20 04:01 98.8 F 81 18 143/82 H 96 - Problem List Review Problem List Initiated/Reviewed/Updated: Yes - My Orders Last 24 Hours: My Active Orders 03/11/20 13:43 Convert IV to Saline Lock [OM.PC] Routine 03/11/20 14:00 Lactobacillus Rhamnosus GG [Culturelle] 1 cap PO BID 03/11/20 16:00 Nystatin [Nystop] See Dose Instructions TOP QID 03/13/20 05:00 BASIC METABOLIC PANEL,BMP [CHEM] Timed CBC WITH AUTO DIFF [HEME] Timed - Plan Plan:: ASSESSMENT AND PLAN Cellulitis of breast, chest, back and left arm with early sepsis-cellulitis is improved over the last 24 hours, sepsis resolved, stable vital signs, white blood cell count improved but still remains modestly elevated -Lock IV -IV Vancomycin 1 gm every 12 hours -IV Ceftazidime 1 gm every 8 hours -medicate for pain -blood cultures x 2 pending -am lab CBC, BMP DIABETES TYPE 2-not controlled-levels improved back on insulin therapy -blood glucose before meals and at bedtime -Insulin NovoLog medium dose sliding scale coverage -am labs bmp Yeast rash -Nystatin powder 4 times daily MAINTENANCE ISSUES -DVT prophylaxis- Lovenox 30 mg subcut -GI prophylaxis- Protonix 40 mg daily -Mejia catheter- not indicated -Nutrition- consistent carb diet -Nicotine dependence- Nicotine patch and gum prn CODE STATUS-FULL CODE ADMISSION STATUS-patient will be admitted to inpatient status, expect at least a 2 night hospital stay for evaluation and management of problems as outlined above. At the time of this admission I do not reasonably expected evaluation and management of this problem will require more than a 96 hour hospital stay. DISPOSITION-anticipate discharge to home after the hospital stay. PRIMARY CARE PROVIDER- Janina Rojo NP, [facility] - Mortality Measure Prognosis:: Good
[2020-03-13] MEDS: Nystatin Topical Powder 15 GM Bottle TOP SCH ×4 (06:05→21:37)
[2020-03-13] MEDS: Insulin Lispro 100 Unit/ML 3 ML KwikPen SUBCUT SCH ×5 (07:55→21:34)
[2020-03-13] MEDS: Atenolol 25 MG Tab PO SCH (08:03)
[2020-03-13] MEDS: Pregabalin 100 MG Cap PO SCH ×3 (08:03→21:40)
[2020-03-13] MEDS: Lactobacillus Rhamnosus GG (Probiotic) Cap PO SCH ×2 (08:03→21:36)
[2020-03-13] MEDS: Acetaminophen/HYDROcodone 325-5 MG Tab PO PRN ×3 (08:11→21:47)
[2020-03-13] MEDS ORDERED: Potassium Chloride 20 MEQ Tab.ER PO ONE (09:00)
--- NOTE | 2020-03-13 11:59 | PCM.PN ---
- General Info Date of Service: 03/13/20 Subjective Update: Ms. Forde has noted further improvement over the last 24 hours. Cellulitis has not totally resolved but is significantly improved since yesterday. Vital signs have remained within desired range and she has been afebrile. White blood cell count has normalized. Functional Status: Reports: Tolerating Diet, Ambulating, Urinating - Review of Systems General: Denies: Fever, Chills Pulmonary: Reports: No Symptoms Cardiovascular: Reports: No Symptoms Gastrointestinal: Reports: No Symptoms - Patient Data Vitals - Most Recent: Last Vital Signs Temp 97.4 F 03/13/20 11:08 Pulse 74 03/13/20 11:08 Resp 12 03/13/20 11:08 BP 119/68 03/13/20 11:08 Pulse Ox 99 03/13/20 11:08 Weight - Most Recent: 145 lb 15.983 oz I&O - Last 24 Hours: Intake & Output 03/12/20 03/13/20 03/13/20 22:59 06:59 14:59 Intake Total 550 600 100 Balance 550 600 100 Lab Results Last 24 Hours: Laboratory Results - last 24 hr 03/12/20 03/12/20 03/13/20 Range/Units 16:30 21:00 05:00 WBC 9.4 (4.5-11.0) K/uL RBC 3.91 (3.30-5.50) M/uL Hgb 10.9 L (12.0-15.0) g/dL Hct 33.3 L (36.0-48.0) % MCV 85 (80-98) fL MCH 28 (27-31) pg MCHC 33 (32-36) % Plt Count 287 (150-400) K/uL Neut % (Auto) 62 (36-66) % Lymph % (Auto) 31 (24-44) % [place] % (Auto) 6 (2-6) % Eos % (Auto) 2 (2-4) % Baso % (Auto) 0 (0-1) % Sodium (140-148) mmol/L Potassium (3.6-5.2) mmol/L Chloride (100-108) mmol/L Carbon Dioxide (21-32) mmol/L Anion Gap (5.0-14.0) mmol/L BUN (7-18) mg/dL Creatinine (0.6-1.0) mg/dL Est Cr Clr Drug Dosing mL/min Estimated GFR (MDRD) (>60) Glucose (74-106) mg/dL POC Glucose 335 H 289 H (74-106) MG/DL Calcium (8.5-10.1) mg/dL 03/13/20 03/13/20 03/13/20 Range/Units 05:28 07:26 11:30 WBC (4.5-11.0) K/uL RBC (3.30-5.50) M/uL Hgb (12.0-15.0) g/dL Hct (36.0-48.0) % MCV (80-98) fL MCH (27-31) pg MCHC (32-36) % Plt Count (150-400) K/uL Neut % (Auto) (36-66) % Lymph % (Auto) (24-44) % [place] % (Auto) (2-6) % Eos % (Auto) (2-4) % Baso % (Auto) (0-1) % Sodium 138 L (140-148) mmol/L Potassium 3.4 L (3.6-5.2) mmol/L Chloride 105 (100-108) mmol/L Carbon Dioxide 22 (21-32) mmol/L Anion Gap 14.4 H (5.0-14.0) mmol/L BUN 8 (7-18) mg/dL Creatinine 0.9 (0.6-1.0) mg/dL Est Cr Clr Drug Dosing 60.71 mL/min Estimated GFR (MDRD) > 60 (>60) Glucose 221 H (74-106) mg/dL POC Glucose 175 H 306 H (74-106) MG/DL Calcium 8.2 L (8.5-10.1) mg/dL Dejon Results Last 24 Hours: Microbiology 03/10/20 20:45 Aerobic Blood Culture - Preliminary Blood NO GROWTH AFTER 2 DAYS Anaerobic Blood Culture - Preliminary NO GROWTH AFTER 2 DAYS 03/10/20 20:45 Aerobic Blood Culture - Preliminary Blood NO GROWTH AFTER 2 DAYS Anaerobic Blood Culture - Preliminary NO GROWTH AFTER 2 DAYS Med Orders - Current: Current Medications Acetaminophen (Tylenol) 650 mg PO Q4H PRN PRN Reason: Pain (Mild 1-3)/fever Hydrocodone Bitart/Acetaminophen ([place] 325-5 Mg) 1 tab PO Q4H PRN PRN Reason: Pain (moderate 4-6) Last Admin: 03/13/20 08:11 Dose: 1 tab Documented by: Albuterol (Proventil Neb Soln) 2.5 mg NEB Q4H PRN PRN Reason: Shortness Of Breath/wheezing Atenolol (Tenormin) 50 mg PO DAILY [facility] Last Admin: 03/13/20 08:03 Dose: 50 mg Documented by: Docusate Sodium (Colace) 100 mg PO BID PRN PRN Reason: Constipation Ceftazidime 1 gm/ Sodium (Chloride) 50 mls @ 100 mls/hr IV Q8H [facility] Last Admin: 03/13/20 07:57 Dose: 100 mls/hr Documented by: Vancomycin HCl 1 gm/ Sodium (Chloride) 250 mls @ 150 mls/hr IV Q12H [facility] Last Admin: 03/13/20 02:01 Dose: 150 mls/hr Documented by: Insulin Human Lispro (Humalog) 0 unit SUBCUT QIDACANDBED [facility]; Protocol Last Admin: 03/13/20 07:55 Dose: 1 unit Documented by: Lactobacillus Rhamnosus (Culturelle) 1 cap PO BID [facility] Last Admin: 03/13/20 08:03 Dose: 1 cap Documented by: Lorazepam (Ativan) 1 mg IV Q6H PRN PRN Reason: Nausea/Vomiting Metformin HCl (Glucophage) 500 mg PO BIDMEALS [facility] Nystatin (Nystop) 0 gm TOP QID [facility] Last Admin: 03/13/20 09:37 Dose: 1 applic Documented by: Ondansetron HCl (Zofran Odt) 4 mg PO Q6H PRN PRN Reason: Nausea able to take PO Pregabalin (Lyrica) 100 mg PO TID [facility] Last Admin: 03/13/20 08:03 Dose: 100 mg Documented by: Discontinued Medications Acetaminophen (Tylenol Extra Strength) 1,000 mg PO ONETIME ONE Stop: 03/10/20 20:40 Last Admin: 03/10/20 20:59 Dose: 1,000 mg Documented by: Clotrimazole (Lotrimin Af 1% Crm) 0 gm TOP BID [facility] Last Admin: 03/11/20 00:19 Dose: Not Given Documented by: Clotrimazole (Lotrimin Af 1% Crm) 0 gm TOP BID [facility] Last Admin: 03/11/20 08:37 Dose: 1 applic Documented by: Sodium Chloride (Normal Saline) 1,000 mls @ 250 mls/hr IV ASDIRECTED [facility] Last Admin: 03/10/20 20:52 Dose: 250 mls/hr Documented by: Clindamycin Phosphate 300 mg/ (Sodium Chloride) 52 mls @ 150 mls/hr IV ONETIME ONE Stop: 03/10/20 21:10 Last Admin: 03/10/20 20:56 Dose: 150 mls/hr Documented by: Sodium Chloride (Normal Saline) 1,000 mls @ 999 mls/hr IV BOLUS [facility] Stop: 03/11/20 00:17 Last Admin: 03/11/20 03:47 Dose: 999 mls/hr Documented by: Sodium Chloride (Normal Saline) 1,000 mls @ 125 mls/hr IV ASDIRECTED [facility] Last Admin: 03/11/20 11:58 Dose: 125 mls/hr Documented by: Vancomycin HCl 1 gm/ Sodium (Chloride) 250 mls @ 150 mls/hr IV ONETIME ONE Stop: 03/11/20 01:24 Last Admin: 03/11/20 00:57 Dose: 150 mls/hr Documented by: Insulin Human Regular (Humulin R) 10 unit SUBCUT ONETIME ONE Stop: 03/10/20 23:17 Last Admin: 03/11/20 00:02 Dose: 10 units Documented by: Potassium Chloride (Klor-Con M20) 40 meq PO ONETIME ONE Stop: 03/11/20 09:01 Last Admin: 03/11/20 10:38 Dose: 40 meq Documented by: Potassium Chloride (Klor-Con M20) 40 meq PO ONETIME ONE Stop: 03/11/20 17:01 Last Admin: 03/11/20 16:27 Dose: 40 meq Documented by: Potassium Chloride (Klor-Con M20) 40 meq PO ONETIME ONE Stop: 03/13/20 09:01 Last Admin: 03/13/20 09:36 Dose: 40 meq Documented by: - Exam Quality Assessment: DVT Prophylaxis General: Alert, Oriented, Cooperative, Mild Distress Lungs: Clear to Auscultation, Normal Respiratory Effort Cardiovascular: Regular Rate, Regular Rhythm, No Murmurs GI/Abdominal Exam: Soft, Non-Tender, No Organomegaly Extremities: Non-Tender, No Pedal Edema Skin: Other (Mild residual erythema left breast and back) Sepsis Event Note - Evaluation Sepsis Screening Result: No Definite Risk - Focused Exam Vital Signs: Vital Signs Temp Pulse Pulse Resp BP BP Pulse Ox 03/13/20 11:08 97.4 F 74 12 119/68 99 03/13/20 08:03 78 148/83 H 03/13/20 08:02 98.1 F 78 18 148/83 H 95 03/13/20 02:02 98.3 F 76 18 157/93 H 98 - Problem List Review Problem List Initiated/Reviewed/Updated: Yes - My Orders Last 24 Hours: My Active Orders 03/13/20 11:55 Discontinue Telemetry Monitoring [Cardiac Monitoring Discontinue] [RC] Click to Edit 03/13/20 12:45 VANCOMYCIN TROUGH [CHEM] Routine 03/13/20 17:00 metFORMIN [Glucophage] 500 mg PO BIDMEALS 03/14/20 05:11 POTASSIUM,K [CHEM] AM - Plan Plan:: ASSESSMENT AND PLAN Cellulitis of breast, chest, back and left arm with early sepsis-cellulitis is improved over the last 24 hours, sepsis resolved, stable vital signs. Improvement in cellulitis over the last 24 hours. Blood cultures remain negative. -Saline lock IV -IV Vancomycin 1 gm every 12 hours -IV Ceftazidime 1 gm every 8 hours -medicate for pain -blood cultures x 2 pending -am lab CBC, BMP DIABETES TYPE 2-not controlled-levels improved back on insulin therapy -blood glucose before meals and at bedtime -Insulin NovoLog medium dose sliding scale coverage -Metformin 500 mg p.o. twice daily -am labs bmp Yeast rash -Nystatin powder 4 times daily MAINTENANCE ISSUES -DVT prophylaxis- Lovenox 30 mg subcut -GI prophylaxis- Protonix 40 mg daily -Mejia catheter- not indicated -Nutrition- consistent carb diet -Nicotine dependence- Nicotine patch and gum prn CODE STATUS-FULL CODE ADMISSION STATUS-patient will be admitted to inpatient status, expect at least a 2 night hospital stay for evaluation and management of problems as outlined above. At the time of this admission I do not reasonably expected evaluation and management of this problem will require more than a 96 hour hospital stay. DISPOSITION-anticipate discharge to home after the hospital stay. PRIMARY CARE PROVIDER- Janina Rojo NP, [facility] - Mortality Measure Prognosis:: Good
[2020-03-13] MEDS: metFORMIN 500 MG Tab PO SCH (17:15)
[2020-03-14] MEDS: Nystatin Topical Powder 15 GM Bottle TOP SCH ×2 (06:36→09:43)
[2020-03-14 07:44] VITALS: PULSE 79
[2020-03-14] MEDS: Acetaminophen/HYDROcodone 325-5 MG Tab PO PRN (07:51)
[2020-03-14] MEDS: metFORMIN 500 MG Tab PO SCH (07:52)
[2020-03-14] MEDS: Insulin Lispro 100 Unit/ML 3 ML KwikPen SUBCUT SCH (07:53)
--- NOTE | 2020-03-14 09:32 | PCM.DCSUM1 ---
Discharge Summary - Hospital Course Brief History: Ms. Forde is a 54-year-old woman who was admitted through the emergency department with fever, chills, and weakness, secondary to cellulitis of the left breast and back with sepsis. - Discharge Data Discharge Date: 03/14/20 Discharge Disposition: Home, Self-Care 01 Condition: Stable - Referral to Home Health Primary Care Physician: Ada Rojo NP - Discharge Diagnosis/Problem(s) (1) Cellulitis SNOMED Code(s): 751535621 ICD Code: L03.90 - CELLULITIS, UNSPECIFIED Status: Acute Priority: High Current Visit: Yes Qualifiers: Site of cellulitis: trunk Site of cellulitis of trunk: chest wall Qualified Code(s): L03.313 - Cellulitis of chest wall (2) Diabetes type 2, uncontrolled SNOMED Code(s): 567373361, 012763394 ICD Code: E11.65 - TYPE 2 DIABETES MELLITUS WITH HYPERGLYCEMIA Status: Ac henry Priority: High Current Visit: Yes Qualifiers: Glycemic state: with hyperglycemia Qualified Code(s): E11.65 - Type 2 diabetes mellitus with hyperglycemia (3) Sepsis SNOMED Code(s): 03955895 ICD Code: A41.9 - SEPSIS, UNSPECIFIED ORGANISM Status: Acute Current Visit: Yes - Patient Summary/Data Consults: Consultations 03/10/20 23:16 Spiritual Care Follow Up [CONS] Routine Hospital Course: Ms. Forde is a 54 yo female presents to the ER with fever associated with left tender red and hot skin of her breast. PMHx of breast CA with lumpectomy and lymph node removal on the left. Redness and pain started 4 days ago and has progressively worsened. She did spend time outside at her brothers house the day that the redness began and thinks she may have alphonso bit by something. She has not taken her medications for the day. Her blood pressure on arrival was elevated. She has had a large amount of family stress and feels "I haven't been caring for myself lately". Cultures were obtained on admission and remained negative throughout her hospital stay. She was started on empiric IV antibiotic therapy with vancomycin and ceftriaxone. Blood sugars were noted to be elevated, she has not been taking medication for her diabetes over the last few years. Hemoglobin A1c was obtained and found to be elevated at 10.2. Glucometers were monitored throughout her hospital stay and she was treated with sliding scale Humalog. She was started on metformin 500 mg twice daily during hospitalization and this will be continued after discharge. With antibiotic therapy there was good resolution of her cellulitis by the time of discharge and she was found to be hemodynamically stable. She was treated for sepsis initially with the vigorous fluid replacement and she remained hemodynamically stable after admission. She will be discharged home on cephalexin 750 mg every 8 hours for an additional 6 days. Activity will be as tolerated and she will be on a diabetic diet. Follow-up appointment will be scheduled with her primary care provider within 1 week for reassessment of cellulitis and ongoing management of her type 2 diabetes mellitus. - Patient Instructions Diet: Diabetic Diet Activity: As Tolerated Other/Special Instructions: Please schedule follow-up appointment with primary care provider within 1 week. - Discharge Plan *PRESCRIPTION DRUG MONITORING PROGRAM REVIEWED*: Not Applicable *COPY OF PRESCRIPTION DRUG MONITORING REPORT IN PATIENT SHAKIRA: Not Applicable Prescriptions/Med Rec: cephALEXin [Cephalexin] 750 mg PO Q8H #18 capsule Lactobacillus Rhamnosus GG [Culturelle] 1 cap PO BID #60 cap metFORMIN [Glucophage] 500 mg PO BIDMEALS #60 tablet Home Medications: Home Meds Pregabalin [Lyrica] 100 mg PO TID 10/09/14 [History] atenoloL [Atenolol] 50 mg PO DAILY 11/27/14 [History] Lactobacillus Rhamnosus GG [Culturelle] 1 cap PO BID #60 cap 03/14/20 [Rx] cephALEXin [Cephalexin] 750 mg PO Q8H #18 capsule 03/14/20 [Rx] metFORMIN [Glucophage] 500 mg PO BIDMEALS #60 tablet 03/14/20 [Rx] Referrals: Ada Rojo NP [Primary Care Provider] - - Discharge Summary/Plan Comment DC Time >30 min.: No - Patient Data Vitals - Most Recent: Last Vital Signs Temp 97.7 F 03/14/20 07:00 Pulse 79 03/14/20 07:00 Resp 16 03/14/20 07:00 BP 163/85 H 03/14/20 07:00 Pulse Ox 98 03/14/20 07:00 Weight - Most Recent: 145 lb 15.983 oz I&O - Last 24 hours: Intake & Output 03/13/20 03/14/2020 22:59 06:59 14:59 Intake Total 340 300 Balance 340 300 Lab Results - Last 24 hrs: Laboratory Results - last 24 hr 03/13/20 03/13/20 03/13/20 Range/Units 11:30 12:48 16:30 Potassium (3.6-5.2) mmol/L POC Glucose 306 H 241 H (74-106) MG/DL Vancomycin Trough 11.2 (10.0-20.0) ug/mL 03/13/20 03/14/20 03/14/20 Range/Units 20:51 05:36 07:30 Potassium 3.7 (3.6-5.2) mmol/L POC Glucose 218 H 161 H (74-106) MG/DL Vancomycin Trough (10.0-20.0) ug/mL JASON Results - Last 24 hrs: Microbiology 03/10/20 20:45 Aerobic Blood Culture - Preliminary Blood NO GROWTH AFTER 3 DAYS Anaerobic Blood Culture - Preliminary NO GROWTH AFTER 3 DAYS 03/10/20 20:45 Aerobic Blood Culture - Preliminary Blood NO GROWTH AFTER 3 DAYS Anaerobic Blood Culture - Preliminary NO GROWTH AFTER 3 DAYS Med Orders - Current: Current Medications Acetaminophen (Tylenol) 650 mg PO Q4H PRN PRN Reason: Pain (Mild 1-3)/fever Hydrocodone Bitart/Acetaminophen ([place] 325-5 Mg) 1 tab PO Q4H PRN PRN Reason: Pain (moderate 4-6) Last Admin: 03/14/20 07:51 Dose: 1 tab Documented by: Albuterol (Proventil Neb Soln) 2.5 mg NEB Q4H PRN PRN Reason: Shortness Of Breath/wheezing Atenolol (Tenormin) 50 mg PO DAILY [facility] Last Admin: 03/13/20 08:03 Dose: 50 mg Documented by: Docusate Sodium (Colace) 100 mg PO BID PRN PRN Reason: Constipation Ceftazidime 1 gm/ Sodium (Chloride) 50 mls @ 100 mls/hr IV Q8H [facility] Last Admin: 03/14/20 07:52 Dose: 100 mls/hr Documented by: Vancomycin HCl 1 gm/ Sodium (Chloride) 250 mls @ 150 mls/hr IV Q12H [facility] Last Admin: 03/14/20 00:14 Dose: 150 mls/hr Documented by: Insulin Human Lispro (Humalog) 0 unit SUBCUT QIDACANDBED [facility]; Protocol Last Admin: 03/14/20 07:53 Dose: 1 unit Documented by: Lactobacillus Rhamnosus (Culturelle) 1 cap PO BID [facility] Last Admin: 03/13/20 21:36 Dose: 1 cap Documented by: Lorazepam (Ativan) 1 mg IV Q6H PRN PRN Reason: Nausea/Vomiting Metformin HCl (Glucophage) 500 mg PO BIDMEALS [facility] Last Admin: 03/14/20 07:52 Dose: 500 mg Documented by: Nystatin (Nystop) 0 gm TOP QID [facility] Last Admin: 03/14/20 06:36 Dose: 1 applic Documented by: Ondansetron HCl (Zofran Odt) 4 mg PO Q6H PRN PRN Reason: Nausea able to take PO Pregabalin (Lyrica) 100 mg PO TID [facility] Last Admin: 03/13/20 21:40 Dose: 100 mg Documented by: Discontinued Medications Acetaminophen (Tylenol Extra Strength) 1,000 mg PO ONETIME ONE Stop: 03/10/20 20:40 Last Admin: 03/10/20 20:59 Dose: 1,000 mg Documented by: Clotrimazole (Lotrimin Af 1% Crm) 0 gm TOP BID [facility] Last Admin: 03/11/20 00:19 Dose: Not Given Documented by: Clotrimazole (Lotrimin Af 1% Crm) 0 gm TOP BID [facility] Last Admin: 03/11/20 08:37 Dose: 1 applic Documented by: Sodium Chloride (Normal Saline) 1,000 mls @ 250 mls/hr IV ASDIRECTED [facility] Last Admin: 03/10/20 20:52 Dose: 250 mls/hr Documented by: Clindamycin Phosphate 300 mg/ (Sodium Chloride) 52 mls @ 150 mls/hr IV ONETIME ONE Stop: 03/10/20 21:10 Last Admin: 03/10/20 20:56 Dose: 150 mls/hr Documented by: Sodium Chloride (Normal Saline) 1,000 mls @ 999 mls/hr IV BOLUS [facility] Stop: 03/11/20 00:17 Last Admin: 03/11/20 03:47 Dose: 999 mls/hr Documented by: Sodium Chloride (Normal Saline) 1,000 mls @ 125 mls/hr IV ASDIRECTED [facility] Last Admin: 03/11/20 11:58 Dose: 125 mls/hr Documented by: Vancomycin HCl 1 gm/ Sodium (Chloride) 250 mls @ 150 mls/hr IV ONETIME ONE Stop: 03/11/20 01:24 Last Admin: 03/11/20 00:57 Dose: 150 mls/hr Documented by: Insulin Human Regular (Humulin R) 10 unit SUBCUT ONETIME ONE Stop: 03/10/20 23:17 Last Admin: 03/11/20 00:02 Dose: 10 units Documented by: Potassium Chloride (Klor-Con M20) 40 meq PO ONETIME ONE Stop: 03/11/20 09:01 Last Admin: 03/11/20 10:38 Dose: 40 meq Documented by: Potassium Chloride (Klor-Con M20) 40 meq PO ONETIME ONE Stop: 03/11/20 17:01 Last Admin: 03/11/20 16:27 Dose: 40 meq Documented by: Potassium Chloride (Klor-Con M20) 40 meq PO ONETIME ONE Stop: 03/13/20 09:01 Last Admin: 03/13/20 09:36 Dose: 40 meq Documented by: - Exam Quality Assessment: Reports: DVT Prophylaxis General: Reports: Alert, Oriented, Cooperative, No Acute Distress Lungs: Reports: Clear to Auscultation, Normal Respiratory Effort Cardiovascular: Reports: Regular Rate, Regular Rhythm, No Murmurs GI/Abdominal Exam: Soft, Non-Tender, No Organomegaly, No Distention Skin: Reports: Other (Good resolution of cellulitis involving the left breast arm and back)
[2020-03-14] MEDS: Atenolol 25 MG Tab PO SCH (09:43)
[2020-03-14] MEDS: Lactobacillus Rhamnosus GG (Probiotic) Cap PO SCH (09:43)
[2020-03-14] MEDS: Pregabalin 100 MG Cap PO SCH (09:47)
[2020-03-14 10:53] VITALS: BP 137/90
== END 2020-03-14 11:15 | disposition home or self-care (01) | DRG 872 ==
LOC: JP.ED 19:25 → JP.2SS 23:04
PROVIDERS: ADMIT Internal Medicine; ATTEND Hospitalist
DX: A41.9 Sepsis, unspecified organism (principal); L03.313 Cellulitis of chest wall; L03.312 Cellulitis of back [any part except buttock and flank]; L03.114 Cellulitis of left upper limb; E11.65 Type 2 diabetes mellitus with hyperglycemia; N61.0 Mastitis without abscess; L30.4 Erythema intertrigo; B37.2 Candidiasis of skin and nail; E78.00 Pure hypercholesterolemia, unspecified; I10 Essential (primary) hypertension; F17.200 Nicotine dependence, unspecified, uncomplicated; Z85.3 Personal history of malignant neoplasm of breast; Z88.5 Allergy status to narcotic agent; Z79.899 Other long term (current) drug therapy; Z90.49 Acquired absence of other specified parts of digestive tract
CPT/HCPCS: 36415; 80048; 80053; 80202; 81001; 82962; 83036; 83605; 84132; 85025; 87040; 96365; 99283-25; A9270-GY; J0713; J1815; J1815-GY; J3370; J3490; J7030; J7050

== ENCOUNTER 2020-11-23 14:00 | Emergency (ER) | payer MEDICAID ==
[2020-11-23 14:17] VITALS: BP 141/99; PULSE 113
--- NOTE | 2020-11-23 14:42 | EDM.PDOC ---
ED HPI GENERAL MEDICAL PROBLEM - General Chief Complaint: Lower Extremity Injury/Pain Stated Complaint: LEFT LEG PAIN Time Seen by Provider: 11/23/20 14:25 Source of Information: Reports: Patient History Limitations: Reports: No Limitations - History of Present Illness INITIAL COMMENTS - FREE TEXT/NARRATIVE: 55-year-old female with a very large left lower abdominal hernia has a surgical consultation coming up on Wednesday but over the past 3 days she has had increased pain and numbness down her left leg. A small amount of swelling around the knee and palpable pain in her left calf is developed in her family encouraged her to come in to get checked for blood clots. She is on Lyrica for neuropathic pain. No fevers or chills, no redness or discoloration of the leg. Onset: Gradual Duration: Day(s): (Symptoms for the last 3 days) Location: Reports: Lower Extremity, Left Associated Symptoms: Reports: Other (Deep muscle pain and paresthesias of the leg). Denies: Confusion, Cough, Fever/Chills, Loss of Appetite, Nausea/Vomiting - Related Data Allergies Allergy/AdvReac Type Severity Reaction Status Date / Time morphine Allergy Itching Verified 11/23/20 14:14 Home Meds: Home Meds Pregabalin [Lyrica] 100 mg PO TID 10/09/14 [History] atenoloL [Atenolol] 50 mg PO DAILY 11/27/14 [History] Lactobacillus Rhamnosus GG [Culturelle] 1 cap PO BID #60 cap 03/14/20 [Rx] metFORMIN [Glucophage] 500 mg PO BIDMEALS #60 tablet 03/14/20 [Rx] Aspirin [Halfprin] 81 mg PO DAILY 11/23/20 [History] Past Medical History HEENT History: Reports: Impaired Vision Cardiovascular History: Reports: High Cholesterol, Hypertension Gastrointestinal History: Reports: None PH[employer]GRAPHIC PLATEM[employer]ER History: Reports: Musculoskeletal History: Reports: Fibromyalgia, RA Endocrine/Metabolic History: Reports: Diabetes, Type II Oncologic (Cancer) History: Reports: Breast - Infectious Disease History Infectious Disease History: Reports: Chicken Pox - Past Surgical History Head Surgeries/Procedures: Reports: None HEENT Surgical History: Reports: None Cardiovascular Surgical History: Reports: None GI Surgical History: Reports: Cholecystectomy, Hernia, Inguinal, Hernia Repair/Other Female Surgical History: Reports: Section, D&C, Other (See Below) Endocrine Surgical History: Reports: None Musculoskeletal Surgical History: Reports: None Oncologic Surgical History: Reports: Lumpectomy Dermatological Surgical History: Reports: None Social & Family History - Family History Family Medical History: No Pertinent Family History - Tobacco Use Tobacco Use Status *Q: Current Every Day Tobacco User Years of Tobacco use: 40 Packs/Tins Daily: 0.2 Used Tobacco, but Quit: No Second Hand Smoke Exposure: No - Caffeine Use Caffeine Use: Reports: Coffee, Soda, Tea Caffeine Use Comment: 1.5 cups of coffee per day - Recreational Drug Use Recreational Drug Use: No - Living Situation & Occupation Living situation: Reports: with Significant Other (lives with SO in [place], [place].) Review of Systems - Review of Systems Review Of Systems: See Below Constitutional: Denies: Fever Respiratory: Denies: Shortness of Breath Cardiovascular: Denies: Chest Pain Skin: Reports: No Symptoms Neurological: Reports: No Symptoms ED EXAM, GENERAL - Physical Exam Exam: See Below Exam Limited By: No Limitations General Appearance: Alert, No Apparent Distress Head: Atraumatic Respiratory/Chest: No Respiratory Distress, Lungs Clear Cardiovascular: Regular Rate, Rhythm GI/Abdominal: Other (Patient has a very large lower abdominal hernia protruding from the left lower abdomen which is moderately tender to palpation but reducible) Extremities: Other (No significant asymmetry, color to both extremities is equal and sensation is intact. Her left leg is tender to palpation however in the popliteal area and calf, and I do not feel pulses in the foot.) Psychiatric: Normal Affect, Normal Mood Skin Exam: Warm, Dry Course - Vital Signs Last Recorded V/S: Last Vital Signs Temp 97.7 F 11/23/20 14:17 Pulse 113 H 11/23/20 14:17 Resp 16 11/23/20 14:17 BP 141/99 H 11/23/20 14:17 Pulse Ox 99 11/23/20 14:17 - Orders/Labs/Meds Orders: Active Orders 24 hr Category Date Time Status VL Duplex Lwr Ext Art Ltd Lt [US] Stat Exams 11/23/20 14:39 Taken - Re-Assessments/Exams Free Text/Narrative Re-Assessment/Exam: 11/23/20 16:05 And arterial and venous ultrasound of the left leg was obtained and showed no DVT but there was very sluggish and monophasic flow of arterial supply to the lower extremity. This is likely due to the large abdominal herniation and press ure of the lower abdomen on the left side. There is flow however and it is not discolored or cool. I offered to transfer the patient to [facility] for further assessment as she has a surgical consult in 2 days, but she wanted to go home and get some foster care situation taken care of. I do not think an urgent transfer is needed. The images were sent to [facility] for their review on Wednesday, she was discharged with 10 hydrocodone and encouraged to keep the extremity warm, and return immediately if it becomes more painful or discolored, or cool. Departure - Departure Time of Disposition: 16:15 Disposition: Home, Self-Care Clinical Impression: Ischemic leg pain Abdominal hernia Qualifiers: Hernia type: other abdominal hernia Obstruction and gangrene presence: without obstruction or gangrene Qualified Code(s): K45.8 - Other specified abdominal hernia without obstruction or gangrene - Discharge Information Instructions: Peripheral Vascular Disease, [id number] Referrals: PCP,None [Primary Care Provider] - Forms: ED Department Discharge Care Plan Goals: Continue your current medications including aspirin, add your stronger pain medications as prescribed if needed and go to your consultation on Wednesday. Keep your leg warm, and return sooner if worsening such as increased pain, discoloration or coolness of the extremity. Sepsis Event Note (ED) - Evaluation Sepsis Screening Result: No Definite Risk - Focused Exam Vital Signs: Vital Signs Temp Pulse Resp BP Pulse Ox 11/23/20 14:17 97.7 F 113 H 16 141/99 H 99 11/23/20 14:16 97.7 F 113 H 16 141/99 H 99 - My Orders Last 24 Hours: My Active Orders 11/23/20 14:39 VL Duplex Lwr Ext Art Ltd Lt [US] Stat - Assessment/Plan Last 24 Hours: My Active Orders 11/23/20 14:39 VL Duplex Lwr Ext Art Ltd Lt [US] Stat
--- NOTE | 2020-11-23 17:57 | CRLUS ---
CLINICAL HISTORY: 55-year-old with left lower extremity pain and numbness for the past 3 days. COMPARISON: None available. TECHNIQUE: The left lower extremity arteries were examined per exam specific protocol with srivastava-scale ultrasound, color-flow and Doppler spectral analysis. Peak systolic velocities (PSV), Doppler waveform quality and Velocity Ratios if applicable, were documented at sites per exam specific protocol. FINDINGS: LEFT VELOCITY/WAVEFORM MEDICAL DOCTOR: 235 cm/s. [place] Prof. Artery: 15.4. [place]. Prox SFA: 44.2. [place]. Mid-SFA: 42.7 cm/s. [place] Distal SFA: 46.4 cm/s. [place] Prox POP A: 41.4 cm/s. [place] Distal Pop A: 19.1 cm/s. [place] KULWINDER: 27.6. [place]. Peroneal: 16.0. [place]. DERRICK BOAT CAPTAIN: 15.6 cm/s. [place] Blair Ped: 23.6 cm/s. [place] Monophasic waveforms are seen throughout the left lower extremity arterial system, indicative of aortoiliac inflow disease. There is evidence for moderate (50-74 percent) stenosis at the common femoral artery with abnormally elevated peak systolic velocity 235 cm/s. There is no evidence for arterial occlusion. IMPRESSION: Monophasic waveforms throughout the left lower extremity arterial system indicative of aortoiliac inflow disease. Moderate (50-74 percent) common femoral artery stenosis. No arterial occlusion. Dictated by Joaquim Draper MD @ 11/24/2020 2:34:19 PM (Electronically Signed)
== END 2020-11-23 16:15 | disposition home or self-care (01) ==
LOC: JP.ED 14:00
DX: K45.8 Other specified abdominal hernia without obstruction or gangrene (principal); M79.605 Pain in left leg; Z88.6 Allergy status to analgesic agent; E78.00 Pure hypercholesterolemia, unspecified; I10 Essential (primary) hypertension; E11.9 Type 2 diabetes mellitus without complications; Z79.82 Long term (current) use of aspirin; Z79.84 Long term (current) use of oral hypoglycemic drugs; Z90.49 Acquired absence of other specified parts of digestive tract; Z72.0 Tobacco use
CPT/HCPCS: 93926-LT; 99283; 99283-25

== ENCOUNTER 2020-12-09 09:21 | Emergency (ER) | payer MEDICAID ==
[2020-12-09] MEDS ORDERED: HYDROmorphone 0.5 MG/0.5 ML Syringe IM ONE (11:01)
--- NOTE | 2020-12-09 11:04 | EDM.PDOC ---
ED HPI GENERAL MEDICAL PROBLEM - General Chief Complaint: Lower Extremity Injury/Pain Stated Complaint: LEFT FOOT PAIN Time Seen by Provider: 12/09/20 11:02 Source of Information: Reports: Patient History Limitations: Reports: No Limitations - History of Present Illness INITIAL COMMENTS - FREE TEXT/NARRATIVE: pt has discoloration and severe pain in the left foot. She has a very large abdomanal hernia that is putting pressure on the left groin area. Onset: Gradual, Other ( started about 3 days ago. ) Duration: Day(s): Location: Reports: Lower Extremity, Left Associated Symptoms: Reports: No Other Symptoms Left Feet Pain Score (Numeric/FACES): 9 - Related Data Allergies Allergy/AdvReac Type Severity Reaction Status Date / Time morphine Allergy Itching Verified 12/09/20 10:46 Home Meds: Home Meds Pregabalin [Lyrica] 100 mg PO TID 10/09/14 [History] atenoloL [Atenolol] 50 mg PO DAILY 11/27/14 [History] Lactobacillus Rhamnosus GG [Culturelle] 1 cap PO BID #60 cap 03/14/20 [Rx] metFORMIN [Glucophage] 500 mg PO BIDMEALS #60 tablet 03/14/20 [Rx] Aspirin [Halfprin] 81 mg PO DAILY 11/23/20 [History] Past Medical History HEENT History: Reports: Impaired Vision Cardiovascular History: Reports: High Cholesterol, Hypertension Gastrointestinal History: Reports: None 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: Musculoskeletal History: Reports: Fibromyalgia, RA Endocrine/Metabolic History: Reports: Diabetes, Type II Oncologic (Cancer) History: Reports: Breast - Infectious Disease History Infectious Disease History: Reports: Chicken Pox - Past Surgical History Head Surgeries/Procedures: Reports: None HEENT Surgical History: Reports: None Cardiovascular Surgical History: Reports: None GI Surgical History: Reports: Cholecystectomy, Hernia, Inguinal, Hernia Repair/Other Female Surgical History: Reports: Section, D&C, Other (See Below) Endocrine Surgical History: Reports: None Musculoskeletal Surgical History: Reports: None Oncologic Surgical History: Reports: Lumpectomy Dermatological Surgical History: Reports: None Social & Family History - Family History Family Medical History: No Pertinent Family History - Tobacco Use Tobacco Use Status *Q: Current Every Day Tobacco User Years of Tobacco use: 20 Packs/Tins Daily: 0.5 - Caffeine Use Caffeine Use: Reports: Coffee Caffeine Use Comment: 1.5 cups of coffee per day - Recreational Drug Use Recreational Drug Use: No - Living Situation & Occupation Living situation: Reports: with Significant Other (lives with SO in [place], [place].) Review of Systems - Review of Systems Review Of Systems: See Below Constitutional: Reports: No Symptoms Eyes: Reports: No Symptoms Ears: Reports: No Symptoms Nose: Reports: No Symptoms Mouth/Throat: Reports: No Symptoms Respiratory: Reports: No Symptoms Cardiovascular: Reports: No Symptoms GI/Abdominal: Reports: No Symptoms Genitourinary: Reports: No Symptoms Musculoskeletal: Reports: Other ( severe pain in left foot. ) Skin: Reports: Erythema, Other (pt has color changes and increased pain in left foot. ) Neurological: Reports: No Symptoms ED EXAM, GENERAL - Physical Exam Exam: See Below Free Text/Narrative:: pt arrived with increased pain in left foot and some discoloration present. Exam Limited By: No Limitations General Appearance: Alert, Anxious, Moderate Distress Ears: Normal TMs Nose: Normal Inspection Throat/Mouth: Normal Inspection Head: Atraumatic Neck: Normal Inspection Respiratory/Chest: No Respiratory Distress Cardiovascular: Regular Rate, Rhythm GI/Abdominal: Soft, Non-Tender (Female) Exam: Deferred Rectal (Female) Exam: Deferred Back Exam: Normal Inspection Extremities: Other ( left foot is very uncomfortab;e. She has discoloration on the lateral aspect of the foot. No pulses can be palpated. ) Neurological: Alert, Oriented, Normal Cognition Psychiatric: Anxious Course - Vital Signs Last Recorded V/S: Last Vital Signs Temp 36.0 C L 12/09/20 10:40 Pulse 80 12/09/20 14:18 Resp 16 12/09/20 10:40 BP 151/89 H 12/09/20 14:18 Pulse Ox 99 12/09/20 14:18 - Orders/Labs/Meds Labs: Laboratory Tests 12/09/20 12/09/20 Range/Units 11:15 11:15 WBC 14.3 H (4.5-11.0) K/uL RBC 4.91 (3.30-5.50) M/uL Hgb 13.8 D (12.0-15.0) g/dL Hct 41.3 (36.0-48.0) % MCV 84 (80-98) fL MCH 28 (27-31) pg MCHC 33 (32-36) % Plt Count 389 (150-400) K/uL Neut % (Auto) 64 (36-66) % Lymph % (Auto) 28 (24-44) % [place] % (Auto) 6 (2-6) % Eos % (Auto) 1 L (2-4) % Baso % (Auto) 1 (0-1) % Sodium 142 (140-148) mmol/L Potassium 3.9 (3.6-5.2) mmol/L Chloride 104 (100-108) mmol/L Carbon Dioxide 27 (21-32) mmol/L Anion Gap 10.7 (5.0-14.0) mmol/L BUN 14 D (7-18) mg/dL Creatinine 0.8 (0.6-1.0) mg/dL Est Cr Clr Drug Dosing 64.18 mL/min Estimated GFR (MDRD) > 60 (>60) Glucose 223 H (74-106) mg/dL Calcium 9.0 (8.5-10.1) mg/dL Total Bilirubin 0.3 (0.2-1.0) mg/dL AST 14 L (15-37) U/L ALT 16 (12-78) U/L Alkaline Phosphatase 90 (46-116) U/L Total Protein 7.4 (6.4-8.2) g/dL Albumin 2.7 L (3.4-5.0) g/dL Globulin 4.7 H (2.3-3.5) g/dL Albumin/Globulin Ratio 0.6 L (1.2-2.2) Meds: Medications Discontinued Medications Generic Name Dose Route Start Last Admin Trade Name Freq PRN Reason Stop Dose Admin Hydromorphone HCl 0.5 mg 12/09/20 11:01 12/09/20 11:29 Hydromorphone 0.5 Mg/0.5 Ml Syringe IM 12/09/20 11:02 0.5 mg ONETIME ONE Administration - Re-Assessments/Exams Free Text/Narrative Re-Assessment/Exam: 12/09/20 15:33 pt had a US which shows sig changes in her vessels. She has a 50 % stenosis in the femoral from a large plaque. Jocelyn was consulted and felt she should be seen in the ER and have further studies done. Departure - Departure Time of Disposition: 15:35 Disposition: Home, Self-Care 01 Condition: Fair Clinical Impression: Ischemia of extremity Abdominal hernia Qualifiers: Hernia type: other abdominal hernia Obstruction and gangrene presence: without obstruction or gangrene Qualified Code(s): K45.8 - Other specified abdominal hernia without obstruction or gangrene - Discharge Information Referrals: Ada Rojo I TRUCK DRIVER RUBBISH COLLECTOR [Primary Care Provider] - Forms: ED Department Discharge Care Plan Goals: transfer to [facility] for further studies on the leg. Pt will be evaluated for the hernia repair. Pt is refusing to go by ambulancd. she will go by Private car after taking some pain meds. Sepsis Event Note (ED) - Evaluation Sepsis Screening Result: No Definite Risk - Focused Exam Vital Signs: Vital Signs Temp Pulse Resp BP Pulse Ox 12/09/20 14:18 80 151/89 H 99 12/09/20 11:14 83 154/78 H 96 12/09/20 10:40 36.0 C L 99 16 166/100 H 100 12/09/20 10:21 36.0 C L 99 16 166/100 H 100
--- NOTE | 2020-12-09 14:06 | CRLUS ---
Indication: 55-year-old female with left foot pain. Technique: Duplex arterial ultrasound examination of the left lower extremity with to the spectral analysis and color Doppler imaging. Comparison: None available. Findings: Monophasic waveforms are seen throughout the left lower extremity arterial system. Scattered atherosclerotic calcification including at the distal aspect of the common femoral artery where it appears bulky. Focal greater than 50 percent stenosis by velocity criteria at the origin of the left profunda femoral artery. Otherwise no significant focal velocity shifts. Impression: 1. Monophasic waveforms throughout the left lower extremity suggests an inflow stenosis or occlusion (aortoiliac). Correlate with clinical signs and symptoms to determine acuity and to direct further evaluation and management. 2. Plaque in the common femoral artery and origin of the profunda femoral artery causes greater than 50 percent stenosis at the origin of the profunda femoral artery. Otherwise no significant velocity shift detected by ultrasound. Dictated by Jovan Padron MD @ 12/09/2020 2:04:54 PM (Electronically Signed)
[2020-12-09] MEDS ORDERED: Acetaminophen/oxyCODONE 325-5 MG Tab PO ONE (15:37)
[2020-12-09 15:57] VITALS: BP 163/99; PULSE 84
== END 2020-12-09 16:10 | disposition home or self-care (01) ==
LOC: JP.ED 09:21
DX: I99.8 Other disorder of circulatory system (principal); K45.8 Other specified abdominal hernia without obstruction or gangrene; I10 Essential (primary) hypertension; M06.9 Rheumatoid arthritis, unspecified; E11.9 Type 2 diabetes mellitus without complications; Z79.84 Long term (current) use of oral hypoglycemic drugs; Z79.899 Other long term (current) drug therapy; Z79.82 Long term (current) use of aspirin; Z72.0 Tobacco use
CPT/HCPCS: 36415; 80053; 85025; 93926-LT; 96372; 99284-25; 99285; A9270-GY; J1170

== ENCOUNTER 2021-07-30 15:31 | Inpatient (IN) | payer MEDICAID ==
[2021-07-30] MEDS ORDERED: ceFAZolin 1 GM in Sodium Chloride 0.9% 50 ML IV ONE (16:18)
--- NOTE | 2021-07-30 16:19 | EDM.PDOC ---
ED HPI GENERAL MEDICAL PROBLEM - General Chief Complaint: Lower Extremity Injury/Pain Stated Complaint: LEFT FOOT PAIN Time Seen by Provider: 07/30/21 15:45 Source of Information: Reports: Patient History Limitations: Reports: No Limitations - History of Present Illness INITIAL COMMENTS - FREE TEXT/NARRATIVE: 56-year-old female with fairly poorly controlled diabetes, does have a history of peripheral vascular disease but had a revascularization procedure as well as a groin hernia repair done in [place] earlier this year and has done well since then, thinks she stepped on something a couple days ago because there was some blood on the floor. She did not feel any pain but over the past 24 hours she is developed very rapidly worsening inflammatory reddened left foot with expanding redness at the medial aspect of the leg almost to the knee. It is warm, it is tender, and the underside of the toe is hemorrhagic with some clear drainage. She has pain with weightbearing. She thinks she had chills earlier but she is not febrile or chilled at this time. She admits her glucose levels are routinely elevated, she is not on insulin. No respiratory symptoms, no chest pain or a bdominal pain. She has also had a persistent scab or lesion on the right anterior thigh that has become a little more inflamed over the past day or 2. She thought it was some type of bite. Onset: Gradual Duration: Hour(s): (Symptoms have developed over the past 24 hours) Location: Reports: Lower Extremity, Left Associated Symptoms: Reports: Other (Some chills intermittent, no documented fever). Denies: Confusion, Chest Pain, Nausea/Vomiting, Shortness of Breath Left Foot Pain Score (Numeric/FACES): 4 - Related Data Allergies Allergy/AdvReac Type Severity Reaction Status Date / Time morphine Allergy Itching Verified 07/30/21 15:51 Home Meds: Home Meds Pregabalin [Lyrica] 100 mg PO TID 10/09/14 [History] atenoloL [Atenolol] 50 mg PO DAILY 11/27/14 [History] Aspirin [Halfprin] 81 mg PO DAILY 11/23/20 [History] Clopidogrel [Plavix] 1 tab PO DAILY 07/30/21 [History] Losartan [Cozaar] 25 mg PO DAILY 07/30/21 [History] metFORMIN [Glucophage] 1,000 mg PO BIDMEALS 07/30/21 [History] Past Medical History HEENT History: Reports: Impaired Vision Cardiovascular History: Reports: High Cholesterol, Hypertension Gastrointestinal History: Reports: 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: Musculoskeletal History: Reports: Fibromyalgia, RA Endocrine/Metabolic History: Reports: Diabetes, Type II Oncologic (Cancer) History: Reports: Breast - Infectious Disease History Infectious Disease History: Reports: Chicken Pox - Past Surgical History Head Surgeries/Procedures: Reports: None HEENT Surgical History: Reports: None Cardiovascular Surgical History: Reports: None GI Surgical History: Reports: Cholecystectomy, Hernia, Inguinal, Hernia Repai r/Other Female Surgical History: Reports: Section, D&C, Other (See Below) Endocrine Surgical History: Reports: None Musculoskeletal Surgical History: Reports: None Oncologic Surgical History: Reports: Lumpectomy Dermatological Surgical History: Reports: None Social & Family History - Family History Family Medical History: No Pertinent Family History - Tobacco Use Tobacco Use Status *Q: Current Every Day Tobacco User Years of Tobacco use: 20 Packs/Tins Daily: 0.2 - Caffeine Use Caffeine Use: Reports: Coffee Caffeine Use Comment: 1.5 cups of coffee per day - Recreational Drug Use Recreational Drug Use: No - Living Situation & Occupation Living situation: Reports: with Significant Other (lives with SO in [place], [place].) Review of Systems - Review of Systems Review Of Systems: See Below Constitutional: Reports: Chills. Denies: Fever Eyes: Reports: No Symptoms Respiratory: Reports: No Symptoms Cardiovascular: Reports: No Symptoms Skin: Reports: Other (See HPI) Neurological: Denies: Headache Psychiatric: Reports: No Symptoms ED EXAM, GENERAL - Physical Exam Exam: See Below Exam Limited By: No Limitations General Appearance: Alert, No Apparent Distress Eye Exam: Bilateral Eye: Normal Inspection Head: Atraumatic Neck: Supple, Non-Tender Respiratory/Chest: Lungs Clear Cardiovascular: Regular Rate, Rhythm GI/Abdominal: Soft, Non-Tender Extremities: Other (The left foot has diffuse erythema and swelling through the toes and foot past the medial ankle and up the medial side of the leg. The underside of the large toe is hemorrhagic and weeping serosanguineous fluid.) Neurological: Alert, Oriented Psychiatric: Normal Affect, Normal Mood Skin Exam: Other (Patient has a 3 cm oval dry healing scab on the right anterior thigh) Course - Vital Signs Last Recorded V/S: Last Vital Signs Temp 99.5 F 07/31/21 01:04 Pulse 91 07/31/21 01:04 Resp 16 07/31/21 01:04 BP 103/63 07/31/21 01:04 Pulse Ox 96 07/31/21 01:04 - Orders/Labs/Meds Orders: Active Orders 24 hr Category Date Time Status CULTURE WOUND + SMEAR [RM] Stat Lab 07/30/21 16:00 Results Medication Orders Acetaminophen (Acetaminophen 325 Mg Tab) 650 mg PO Q4H PRN PRN Reason: Pain (Mild 1-3)/fever Albuterol (Albuterol 0.083% 2.5 Mg/3 Ml Neb Soln) 2.5 mg NEB Q4H PRN PRN Reason: Shortness Of Breath/wheezing Atenolol (Atenolol 25 Mg Tab) 50 mg PO DAILY [place] Bisacodyl (Bisacodyl 5 Mg Tab) 5 mg PO DAILY PRN PRN Reason: Constipation Docusate Sodium (Docusate Sodium 100 Mg Cap) 100 mg PO BID PRN PRN Reason: Constipation Enoxaparin Sodium (Enoxaparin 40 Mg/0.4 Ml Syringe) 40 mg SUBCUT Q24H [place] Hydromorphone HCl (Hydromorphone 0.5 Mg/0.5 Ml Syringe) 0.5 mg IVPUSH Q2H PRN PRN Reason: Pain (moderate 4-6) Sodium Chloride (Normal Saline) 1,000 mls @ 125 mls/hr IV ASDIRECTED [facility] Last Admin: 07/31/21 06:23 Dose: 125 mls/hr Documented by: Infusion: 07/31/21 04:26 Dose: 125 mls/hr Documented by: Admin: 07/30/21 20:26 Dose: 125 mls/hr Documented by: LAMBERTO Vancomycin HCl 1 gm/ Sodium (Chloride) 250 mls @ 165 mls/hr IV Q12H [place] Meropenem 1 gm/ Sodium (Chloride) 100 mls @ 200 mls/hr IV Q8H [place] Insulin Human Lispro (Insulin Lispro 100 Unit/Ml 3 Ml Kwikpen) 0 unit SUBCUT QIDACANDBED [facility]; Protocol Last Admin: 07/30/21 21:20 Dose: 1 unit Documented by: LAMBERTO Cosigned by: ARISTEO Losartan Potassium (Losartan 50 Mg Tab) 25 mg PO DAILY [facility] Ondansetron HCl (Ondansetron 4 Mg Tab.Dis) 4 mg PO Q6H PRN PRN Reason: Nausea able to take PO Ondansetron HCl (Ondansetron 4 Mg/2 Ml Sdv) 4 mg IV Q4H PRN PRN Reason: Nausea/Vomiting Oxycodone/Acetaminophen (Acetaminophen/Oxycodone 325-5 Mg Tab) 1 tab PO Q4H PRN PRN Reason: Pain (moderate 4-6) Last Admin: 07/31/21 04:43 Dose: 1 tab Documented by: Admin: 07/30/21 21:32 Dose: 1 tab Documented by: LAMBERTO Pantoprazole Sodium (Pantoprazole 40 Mg Vial) 40 mg IV BEDTIME [facility] Last Admin: 07/30/21 21:22 Dose: 40 mg Documented by: LAMBERTO Pregabalin (Pregabalin 100 Mg Cap) 100 mg PO TID [facility] Last Admin: 07/30/21 21:21 Dose: 100 mg Documented by: LAMBERTO Labs: Laboratory Tests 07/30/21 07/30/21 07/30/21 Range/Units 16:15 16:15 16:46 WBC 20.7 H (4.5-11.0) K/uL RBC 4.05 (3.30-5.50) M/uL Hgb 11.5 L D (12.0-15.0) g/dL Hct 34.4 L (36.0-48.0) % MCV 85 (80-98) fL MCH 28 (27-31) pg MCHC 33 (32-36) % Plt Count 295 (150-400) K/uL Neut % (Auto) 83.5 H (36-66) % Lymph % (Auto) 8.7 L (24-44) % [place] % (Auto) 6.5 H (2-6) % Eos % (Auto) 0.1 L (2-4) % Baso % (Auto) 0.2 (0-1) % Sodium 135 L (140-148) mmol/L Potassium 3.4 L (3.6-5.2) mmol/L Chloride 100 (100-108) mmol/L Carbon Dioxide 23 (21-32) mmol/L Anion Gap 15.4 H (5.0-14.0) mmol/L BUN 17 (7-18) mg/dL Creatinine 1.3 H D (0.6-1.0) mg/dL Est Cr Clr Drug Dosing 39.02 mL/min Estimated GFR (MDRD) 42 L (>60) Glucose 233 H (74-106) mg/dL Lactic Acid 2.0 (0.4-2.0) mmol/L Calcium 8.6 (8.5-10.1) mg/dL Total Bilirubin 0.5 D (0.2-1.0) mg/dL AST 12 L (15-37) U/L ALT 14 (12-78) U/L Alkaline Phosphatase 87 (46-116) U/L C-Reactive Protein > 25.00 H (0.0-0.3) mg/dL Total Protein 7.1 (6.4-8.2) g/dL Albumin 2.7 L (3.4-5.0) g/dL Globulin 4.4 H (2.3-3.5) g/dL Albumin/Globulin Ratio 0.6 L (1.2-2.2) Influenza Type A RNA (NEGATIVE) RSV RNA (INAAT) (NEGATIVE) Influenza Type B RNA (NEGATIVE) SARS-CoV-2 RNA (AMANDA) (NEGATIVE) 07/30/21 Range/Units 16:49 WBC (4.5-11.0) K/uL RBC (3.30-5.50) M/uL Hgb (12.0-15.0) g/dL Hct (36.0-48.0) % MCV (80-98) fL MCH (27-31) pg MCHC (32-36) % Plt Count (150-400) K/uL Neut % (Auto) (36-66) % Lymph % (Auto) (24-44) % [place] % (Auto) (2-6) % Eos % (Auto) (2-4) % Baso % (Auto) (0-1) % Sodium (140-148) mmol/L Potassium (3.6-5.2) mmol/L Chloride (100-108) mmol/L Carbon Dioxide (21-32) mmol/L Anion Gap (5.0-14.0) mmol/L BUN (7-18) mg/dL Creatinine (0.6-1.0) mg/dL Est Cr Clr Drug Dosing mL/min Estimated GFR (MDRD) (>60) Glucose (74-106) mg/dL Lactic Acid (0.4-2.0) mmol/L Calcium (8.5-10.1) mg/dL Total Bilirubin (0.2-1.0) mg/dL AST (15-37) U/L ALT (12-78) U/L Alkaline Phosphatase (46-116) U/L C-Reactive Protein (0.0-0.3) mg/dL Total Protein (6.4-8.2) g/dL Albumin (3.4-5.0) g/dL Globulin (2.3-3.5) g/dL Albumin/Globulin Ratio (1.2-2.2) Influenza Type A RNA Negative (NEGATIVE) RSV RNA (INAAT) Negative (NEGATIVE) Influenza Type B RNA Negative (NEGATIVE) SARS-CoV-2 RNA (AMANDA) Negative (NEGATIVE) Meds: Medications Generic Name Dose Route Start Last Admin Trade Name Freq PRN Reason Stop Dose Admin Acetaminophen 650 mg 07/30/21 20:07 Acetaminophen 325 Mg Tab PO Q4H PRN Pain (Mild 1-3)/fever Albuterol 2.5 mg 07/30/21 20:07 Albuterol 0.083% 2.5 Mg/3 Ml Neb Soln NEB Q4H PRN Shortness Of Breath/wheezing Atenolol 50 mg 07/31/21 09:00 Atenolol 25 Mg Tab PO DAILY MADYSON Bisacodyl 5 mg 07/30/21 20:07 Bisacodyl 5 Mg Tab PO DAILY PRN Constipation Docusate Sodium 100 mg 07/30/21 20:07 Docusate Sodium 100 Mg Cap PO BID PRN Constipation Enoxaparin Sodium 40 mg 07/31/21 21:00 Enoxaparin 40 Mg/0.4 Ml Syringe SUBCUT Q24H MADYSON Hydromorphone HCl 0.5 mg 07/30/21 20:07 Hydromorphone 0.5 Mg/0.5 Ml Syringe IVPUSH Q2H PRN Pain (moderate 4-6) Sodium Chloride 1,000 mls @ 125 mls/hr 07/30/21 20:07 07/31/21 06:23 Normal Saline IV 125 mls/hr ASDIRECTED MADYSON Administration Vancomycin HCl 1 gm/ Sodium 250 mls @ 165 mls/hr 07/31/21 10:00 Chloride IV Q12H MADYSON Meropenem 1 gm/ Sodium 100 mls @ 200 mls/hr 07/31/21 14:00 Chloride IV Q8H MADYSON Insulin Human Lispro 0 unit 07/30/21 20:07 07/30/21 21:20 Insulin Lispro 100 Unit/Ml 3 Ml Kwikpen SUBCUT 1 unit QIDACANDBED MADYSON Administration Protocol Losartan Potassium 25 mg 07/31/21 09:00 Losartan 50 Mg Tab PO DAILY MADYSON Ondansetron HCl 4 mg 07/30/21 20:07 Ondansetron 4 Mg Tab.Dis PO Q6H PRN Nausea able to take PO Ondansetron HCl 4 mg 07/30/21 20:07 Ondansetron 4 Mg/2 Ml Sdv IV Q4H PRN Nausea/Vomiting Oxycodone/Acetaminophen 1 tab 07/30/21 20:07 07/31/21 04:43 Acetaminophen/Oxycodone 325-5 Mg Tab PO 1 tab Q4H PRN Administration Pain (moderate 4-6) Pantoprazole Sodium 40 mg 07/30/21 21:00 07/30/21 21:22 Pantoprazole 40 Mg Vial IV 40 mg BEDTIME MADYSON Administration Pregabalin 100 mg 07/30/21 21:00 07/30/21 21:21 Pregabalin 100 Mg Cap PO 100 mg TID MADYSON Administration Discontinued Medications Generic Name Dose Route Start Last Admin Trade Name Freq PRN Reason Stop Dose Admin Enoxaparin Sodium 40 mg 07/30/21 20:07 07/30/21 21:21 Enoxaparin 40 Mg/0.4 Ml Syringe SUBCUT 40 mg DAILY MADYSON Administration Hydromorphone HCl 0.5 mg 07/30/21 19:14 07/30/21 19:21 Hydromorphone 0.5 Mg/0.5 Ml Syringe IVPUSH 07/30/21 19:15 0.5 mg ONETIME ONE Administration Cefazolin Sodium 1 gm/ Sodium 50 mls @ 100 mls/hr 07/30/21 16:18 07/30/21 16 :27 Chloride IV 07/30/21 16:47 100 mls/hr ONETIME ONE Administration Ertapenem 1 gm/ Sodium 100 mls @ 200 mls/hr 07/30/21 17:01 07/30/21 17:10 Chloride IV 07/30/21 17:30 200 mls/hr ONETIME ONE Administration Sodium Chloride 1,000 mls @ 500 mls/hr 07/30/21 18:00 07/30/21 17:49 Normal Saline IV 500 mls/hr ASDIRECTED MADYSON Administration Sodium Chloride 80 mls @ 3 mls/sec 07/30/21 19:30 07/30/21 19:55 Normal Saline IV 3 mls/sec ASDIRECTED MADYSON Administration Cefazolin Sodium 1 gm/ Sodium 50 mls @ 200 mls/hr 07/31/21 00:00 Chloride IV Q8H MADYSON Meropenem 1 gm/ Sodium 50 mls @ 100 mls/hr 07/31/21 01:10 Chloride IV Q8H MADYSON Meropenem 500 mg/ Sodium 50 mls @ 100 mls/hr 07/31/21 01:00 07/31/21 01:08 Chloride IV 100 mls/hr Q8H MADYSON Administration Vancomycin HCl 1 gm/ Sodium 250 mls @ 166.667 mls/hr 07/30/21 22:00 07/30/21 21:34 Chloride IV 166.667 mls/hr Q24H MADYSON Administration Iopamidol 100 ml 07/30/21 19:30 07/30/21 19:55 Iopamidol 612 Mg/Ml 100 Ml Bottle IV 100 ml . DIRECTED MADYSON Administration Potassium Chloride 20 meq 07/30/21 21:30 07/30/21 21:32 Potassium Chloride 20 Meq Tab.Er PO 07/30/21 21:31 20 meq ONETIME ONE Administration Vancomycin HCl 1 gm 07/30/21 22:00 Vancomycin Pharmacy To Dose IV ASDIRECTED MADYSON - Re-Assessments/Exams Free Text/Narrative Re-Assessment/Exam: 07/30/21 16:26 An IV was started, CBC CRP and CMP were obtained. The toe was cleaned with alcohol for sterilization, and some gentle pressure was applied and some fluid expelled from the opening and cultured and sent to lab. After the culture was obtained, 1 g of cefazolin was ordered. 07/30/21 17:07 CRP returned over 25, creatinine 1.3 glucose 233. After discussion with the hospitalist service who accepted her for admission, it was recommended we add meropenem 1 g IV. Lactic acid is still pending as well as a 4 Plex Covid study. Patient remained stable. Normal saline at 500 cc an hour was started. 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
[2021-07-30] MEDS ORDERED: Ertapenem 1 GM in Sodium Chloride 0.9% 100 ML IV ONE (17:01)
[2021-07-30] MEDS ORDERED: Sodium Chloride 0.9% 1,000 ML IV SCH ×2 (17:15→18:00)
[2021-07-30 17:36] LABS: CORONAVIRUS COVID-19 NAA NEGATIVE (NEGATIVE)
[2021-07-30] MEDS ORDERED: HYDROmorphone 0.5 MG/0.5 ML Syringe IVPUSH ONE (19:14)
[2021-07-30] MEDS ORDERED: Iopamidol 612 MG/ML 100 ML Bottle IV SCH (19:30)
[2021-07-30] MEDS ORDERED: Sodium Chloride 0.9% 80 ML IV SCH (19:30)
--- NOTE | 2021-07-30 20:06 | PCM.HP.2 ---
H&P History of Present Illness - General Date of Service: 07/30/21 Admit Problem/Dx: Admission Diagnosis/Problem Admission Diagnosis/Problem Cellulitis and abscess of toe of left foot Source of Information: Patient, Provider, RN History Limitations: Reports: No Limitations - History of Present Illness Initial Comments - Free Text/Narative: chief complaint: left foot infection. This is a 56 y.o. female presents to the ER for evaluation of left great toe infection. She reports about two days ago stepped on something with her left foot. Last night checked her foot again because was having increased pain, shaking chills and fever. Now the toe and half of the foot is red, swollen, painful to touch. also has a circular red crusted infection on the right upper thigh. In ER was noted to have a WBC 20.7, hgb 11.5, HCT 34.4, chemistries NA 135, k 3.4, CL 100, ANION GAP 15.4, BUN 17, CR 1.3, GLUCOSE 233, CO2-23, gfr 39.02/42, lactic acid 2.0, ast 12, crp >25, wound culture pending final gram +cocci. Covid, influenza, RSV-all negative. she is not vaccinated against covid. Consult with Dr. Rojo,Surgeon, advise CT scan of left foot and will see in morning as attending. given IV Ancef in ER. discuss plan of care with Mrs. Forde to admit for further care and treatment- agrees with plan of care. Onset of Symptoms: Reports: Gradual Symptom Onset Date: 07/28/21 Duration of Symptoms: Reports: Day(s): Location: Reports: Lower Extremity, Left, Other (right mid thigh) Quality: Reports: Ache, Burning, Throbbing Severity: Moderate (rate foot pain at 5/10) Improves with: Reports: Rest Worsens with: Reports: Movement Context: Reports: Other (step on "something" left foot 2 days ago.) Associated Symptoms: Reports: Fever/Chills Left Foot Pain Score (Numeric/FACES): 4 - Related Data Allergies/Adverse Reactions: Allergies Allergy/AdvReac Type Severity Reaction Status Date / Time morphine Allergy Itching Verified 07/30/21 15:51 Home Medications: Home Meds Pregabalin [Lyrica] 100 mg PO TID 10/09/14 [History] atenoloL [Atenolol] 50 mg PO DAILY 11/27/14 [History] Aspirin [Halfprin] 81 mg PO DAILY 11/23/20 [History] Clopidogrel [Plavix] 1 tab PO DAILY 07/30/21 [History] Losartan [Cozaar] 25 mg PO DAILY 07/30/21 [History] metFORMIN [Glucophage] 1,000 mg PO BIDMEALS 07/30/21 [History] Past Medical History HEENT History: Reports: Impaired Vision Cardiovascular History: Reports: High Cholesterol, Hypertension Gastrointestinal History: Reports: None 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: Musculoskeletal History: Reports: Fibromyalgia, RA Endocrine/Metabolic History: Reports: Diabetes, Type II Oncologic (Cancer) History: Reports: Breast - Infectious Disease History Infectious Disease History: Reports: Chicken Pox - Past Surgical History Head Surgeries/Procedures: Reports: None HEENT Surgical History: Reports: None Cardiovascular Surgical History: Reports: None GI Surgical History: Reports: Cholecystectomy, Hernia, Inguinal, Hernia Repair/Other Female Surgical History: Reports: Section, D&C, Other (See Below) Endocrine Surgical History: Reports: None Musculoskeletal Surgical History: Reports: None Oncologic Surgical History: Reports: Lumpectomy Dermatological Surgical History: Reports: None Social & Family History - Family History Family Medical History: No Pertinent Family History - Tobacco Use Tobacco Use Status *Q: Current Every Day Tobacco User Years of Tobacco use: 20 Packs/Tins Daily: 0.2 - Caffeine Use Caffeine Use: Reports: Coffee Caffeine Use Comment: 1.5 cups of coffee per day - Recreational Drug Use Recreational Drug Use: No - Living Situation & Occupation Living situation: Reports: with Significant Other (lives with SO in [place], [place].) 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 on [facility] [place] H&P Review of Systems - Review of Systems: Review Of Systems: See Below General: Reports: Fever, Chills, Malaise, Decreased Appetite HEENT: Reports: No Symptoms Pulmonary: Reports: No Symptoms Cardiovascular: Reports: No Symptoms Gastrointestinal: Reports: No Symptoms Genitourinary: Reports: No Symptoms Musculoskeletal: Reports: Leg Pain (right thigh), Foot Pain (left foot) Skin: Reports: Bruising, Erythema, Wound (right thigh and left great toe and distal foot), Change in Color (left foot and left great toe) Psychiatric: Reports: No Symptoms Neurological: Reports: No Symptoms Hematologic/Lymphatic: Reports: No Symptoms Immunologic: Reports: No Symptoms Exam - Exam Exam: See Below - Vital Signs Vital Signs: Last Vital Signs Temp 97.5 F 07/30/21 19:28 Pulse 98 07/30/21 19:36 Resp 16 07/30/21 19:28 BP 126/81 07/30/21 19:36 Pulse Ox 100 07/30/21 19:28 Weight: 135 lb - Exam Quality Assessment: DVT Prophylaxis, Skin Breakdown General: Alert, Oriented, Cooperative, Moderate Distress HEENT: PERRLA, Hearing Intact, Mucosa Moist & [place], Nares Patent, Normal Nasal Septum, Posterior Pharynx Clear, Conjunctiva Clear, EOMI, EACs Clear, TMs Clear Neck: Supple, Trachea Midline, 2 Lungs: Clear to Auscultation, Normal Respiratory Effort Cardiovascular: Regular Rate, Regular Rhythm GI/Abdominal Exam: Normal Bowel Sounds, Soft, Non-Tender, No Organomegaly, No Distention, No Abnormal Bruit, No Mass, Pelvis Stable (Female) Exam: Deferred Rectal (Female) Exam: Deferred Back Exam: Normal Inspection, Full Range of Motion Extremities: Pedal Edema (left foot), Slow Capillary Refill (left foot), Leg Pain (left foot and right thigh), Increased Warmth (left foot), Redness (right middle thigh with wound, left great toe, 2nd toe and distal foot with pain, erytherma, mucopurulent discharge from the base of great toe. black spot noted to bottom half of the toe. culture was done in ER.) Skin: Ecchymosis, Wound (left great toe and 2nd toe, and distal foot with red streaking along the foot and lower leg. right thigh with 2 cm circular crusted lesion with erythema, painful to touch.) Neurological: Normal Speech, Normal Tone Neuro Extensive - Mental Status: Alert, Oriented x3, Normal Mood/Affect, Normal Cognition Neuro Extensive - Motor, Sensory, Reflexes: CN II-XII Intact, Normal Gait, Normal Reflexes Psychiatric: Alert, Normal Affect, Normal Mood - Patient Data Lab Results Last 24 hrs: Laboratory Results - last 24 hr 07/30/21 07/30/21 07/30/21 Range/Units 16:15 16:15 16:46 WBC 20.7 H (4.5-11.0) K/uL RBC 4.05 (3.30-5.50) M/uL Hgb 11.5 L D (12.0-15.0) g/dL Hct 34.4 L (36.0-48.0) % MCV 85 (80-98) fL MCH 28 (27-31) pg MCHC 33 (32-36) % Plt Count 295 (150-400) K/uL Neut % (Auto) 83.5 H (36-66) % Lymph % (Auto) 8.7 L (24-44) % Swain % (Auto) 6.5 H (2-6) % Eos % (Auto) 0.1 L (2-4) % Baso % (Auto) 0.2 (0-1) % Sodium 135 L (140-148) mmol/L Potassium 3.4 L (3.6-5.2) mmol/L Chloride 100 (100-108) mmol/L Carbon Dioxide 23 (21-32) mmol/L Anion Gap 15.4 H (5.0-14.0) mmol/L BUN 17 (7-18) mg/dL Creatinine 1.3 H D (0.6-1.0) mg/dL Est Cr Clr Drug Dosing 39.02 mL/min Estimated GFR (MDRD) 42 L (>60) Glucose 233 H (74-106) mg/dL Lactic Acid 2.0 (0.4-2.0) mmol/L Calcium 8.6 (8.5-10.1) mg/dL Total Bilirubin 0.5 D (0.2-1.0) mg/dL AST 12 L (15-37) U/L ALT 14 (12-78) U/L Alkaline Phosphatase 87 (46-116) U/L C-Reactive Protein > 25.00 H (0.0-0.3) mg/dL Total Protein 7.1 (6.4-8.2) g/dL Albumin 2.7 L (3.4-5.0) g/dL Globulin 4.4 H (2.3-3.5) g/dL Albumin/Globulin Ratio 0.6 L (1.2-2.2) Influenza Type A RNA (NEGATIVE) RSV RNA (INAAT) (NEGATIVE) Influenza Type B RNA (NEGATIVE) SARS-CoV-2 RNA (AMANDA) (NEGATIVE) 07/30/21 Range/Units 16:49 WBC (4.5-11.0) K/uL RBC (3.30-5.50) M/uL Hgb (12.0-15.0) g/dL Hct (36.0-48.0) % MCV (80-98) fL MCH (27-31) pg MCHC (32-36) % Plt Count (150-400) K/uL Neut % (Auto) (36-66) % Lymph % (Auto) (24-44) % Swain % (Auto) (2-6) % Eos % (Auto) (2-4) % Baso % (Auto) (0-1) % Sodium (140-148) mmol/L Potassium (3.6-5.2) mmol/L Chloride (100-108) mmol/L Carbon Dioxide (21-32) mmol/L Anion Gap (5.0-14.0) mmol/L BUN (7-18) mg/dL Creatinine (0.6-1.0) mg/dL Est Cr Clr Drug Dosing mL/min Estimated GFR (MDRD) (>60) Glucose (74-106) mg/dL Lactic Acid (0.4-2.0) mmol/L Calcium (8.5-10.1) mg/dL Total Bilirubin (0.2-1.0) mg/dL AST (15-37) U/L ALT (12-78) U/L Alkaline Phosphatase (46-116) U/L C-Reactive Protein (0.0-0.3) mg/dL Total Protein (6.4-8.2) g/dL Albumin (3.4-5.0) g/dL Globulin (2.3-3.5) g/dL Albumin/Globulin Ratio (1.2-2.2) Influenza Type A RNA Negative (NEGATIVE) RSV RNA (INAAT) Negative (NEGATIVE) Influenza Type B RNA Negative (NEGATIVE) SARS-CoV-2 RNA (AMANDA) Negative (NEGATIVE) Result Diagrams: 07/30/21 16:15 07/30/21 16:15 Dejon Results Last 24 hrs: Microbiology 07/30/21 16:00 Gram Stain - Final Toe, Left - Left Big Sepsis Event Note - Focused Exam Vital Signs: Vital Signs Temp Pulse Resp BP Pulse Ox 07/30/21 19:36 98 126/81 07/30/21 19:28 97.5 F 98 16 126/81 100 07/30/21 18:33 90 113/74 96 07/30/21 17:50 92 128/86 100 07/30/21 17:16 87 116/76 97 07/30/21 16:04 87 113/80 99 07/30/21 15:52 98.1 F 92 18 132/70 100 - Problem List (1) Cellulitis of foot, left SNOMED Code(s): 391451843 ICD Code: L03.116 - CELLULITIS OF LEFT LOWER LIMB Status: Acute Priority: High Current Visit: Yes (2) Diabetes type 2, uncontrolled SNOMED Code(s): 484544416, 107648644 ICD Code: E11.65 - TYPE 2 DIABETES MELLITUS WITH HYPERGLYCEMIA Status: Acute Priority: High Current Visit: Yes Qualifiers: Glycemic state: with hyperglycemia Qualified Code(s): E11.65 - Type 2 diabetes mellitus with hyperglycemia (3) Hypokalemia SNOMED Code(s): 04141051 ICD Code: E87.6 - HYPOKALEMIA Status: Acute Priority: High Current Visit: Yes (4) Essential hypertension SNOMED Code(s): 22440593 ICD Code: I10 - ESSENTIAL (PRIMARY) HYPERTENSION Status: Chronic Priority: High Current Visit: Yes (5) Tobacco use SNOMED Code(s): 887667233 ICD Code: Z72.0 - TOBACCO USE Status: Chronic Priority: High Current Visit: Yes Problem List Initiated/Reviewed/Updated: Yes Orders Last 24hrs: Active Orders 24 hr Category Date Time Status Patient Status Manage Transfer [TRANSFER] Routine ADT 07/30/21 19:24 Active Foot wo Cont Lt [CT] Stat Exams 07/30/21 19:10 Ordered Lower Extremity w Cont Rt [CT] Stat Exams 07/30/21 19:10 Ordered CULTURE WOUND + SMEAR [RM] Stat Lab 07/30/21 16:00 Results Iopamidol [Isovue-300 (61%)] Med 07/30/21 19:30 Active 100 ml IV . DIRECTED Sodium Chloride 0.9% [Normal Saline] 1,000 ml Med 07/30/21 18:00 Active IV ASDIRECTED Sodium Chloride 0.9% [Normal Saline] 80 ml Med 07/30/21 19:30 Active IV ASDIRECTED Isolation [COMM] Stat Oth 07/30/21 16:49 Ordered Resuscitation Status Routine Resus Stat 07/30/21 19:26 Ordered Medication Orders Sodium Chloride (Normal Saline) 1,000 mls @ 500 mls/hr IV ASDIRECTED [facility] Last Admin: 07/30/21 17:49 Dose: 500 mls/hr Documented by: LOWELL Sodium Chloride (Normal Saline) 80 mls @ 3 mls/sec IV ASDIRECTED MADYSON Iopamidol (Iopamidol 612 Mg/Ml 100 Ml Bottle) 100 ml IV . [facility]ED [facility] Assessment/Plan Comment:: ASSESSMENT AND PLAN OF CARE: Cellulits of left foot included left great toe and 2nd toe, wound to right thigh, Diabetes Type 2 uncontrolled, Hypokalemia, Hypertension, Tobacco use. chief complaint: left foot infection. This is a 56 y.o. female presents to the ER for evaluation of left great toe infection. She reports about two days ago stepped on something with her left foot. Last night checked her foot again because was having increased pain, shaking chills and fever. Now the toe and half of the foot is red, swollen, painful to touch. also has a circular red crusted infection on the right upper thigh. In ER was noted to have a WBC 20.7, hgb 11.5, HCT 34.4, chemistries NA 135, k 3.4, CL 100, ANION GAP 15.4, BUN 17, CR 1.3, GLUCOSE 233, CO2-23, gfr 39.02/42, lactic acid 2.0, ast 12, crp >25, wound culture (final pending) gram +cocci. Covid, influenza, RSV-all negative. she is not vaccinated against covid. Consult with Dr. Rojo, Surgeon, advise CT scan of left foot and will see in morning as Attending MD., given IV Ancef in ER. discuss plan of care with Mrs. Forde to admit for further care and treatment- agrees with plan of care. CELLULITIS LEFT FOOT, INCLUDING GREAT TOE & 2ND TOE. RIGHT THIGH WITH WOUND. left foot with red edematous left great toe and 2nd toe. has a black spot on the space at base of toe, drainage noted. red streaking along the top of foot extends to the lower leg. The whole foot is painful to touch, rates pain at 5/10. She also has a 2 cm circular crusted wound noted to the anterior upper right thigh that is red, tender to touch. WBC 20.7. Imaging CT scan of left foot and right upper thigh pending. Vital signs stable TPR 97.5-98-16 B/P 126/81 O2 sat 100% room air -Admit to 2 [facility] for further monitoring -IV Fluids Normal Saline 125 mL per hour. -IV Zofran 4mg every 4 hours as needed for nausea -IV Vancomycin 1 gram every 12 hours -IV Meropenem 1 gram every 8 hours -IV Dilaudid 0.5 mg every 2 hours for pain control as needed -continuous pulse ox. while IV narcotics -Advise to notify nurses of any fever or worsen pain -blood cultures X2 and wound culture pending -a.m. labs: CBC, BMP, CRP DIABETES TYPE 2 UNCONTROLLED- reports blood glucose have been in the 200's or higher. does not take insulin -hemoglobin A1c pending -blood glucose check before meals and at bedtime -medium dose sliding scale coverage -consistent carb diet HYPOKALEMIA- Potassium 3.4 upon admission, will supplement with PO Potassium 20 meq x one and recheck in am. -PO Potassium 20 meq once -AM Labs BMP HYPERTENSION -Atenolol 50 mg daily -Cozaar 25 mg daily -Monitor vital signs every 4 hours TOBACCO USE- smokes half a pack daily -declines patch or gum Maintenance issues -Home medications- ordered -Nutrition: Consistent Carb diet. -Mejia catheter: not indicated -DVT: Lovenox 40 mg subcut. -PPI: IV Protonix 40 mg daily -tobacco- smoker- declines patch or gum CODE STATUS: FULL Admission status: Admit 2 [facility] Admission justification. This patient will be admitted for inpatient services and is medically appropriate meeting medical necessity for inpatient admission as outlined in my documentation. I reasonably expect the patient will require inpatient services that span. Time over 2 midnights. I reasonably expect this patient to be discharged or transferred within 96 hours after admission to the critical access hospital. Disposition: home with Family Primary care provider: Giuseppe Abdalla [facility] Hospitalist: Dr. Romano Surgery Service: Dr. Rojo - Mortality Measure Prognosis:: Good - Mortality Measure Prognosis:: Good
[2021-07-30] MEDS ORDERED: Ondansetron 4 MG/2 ML SDV IV PRN (20:07)
[2021-07-30] MEDS ORDERED: Ondansetron 4 MG Tab.DIS PO PRN (20:07)
[2021-07-30] MEDS ORDERED: Albuterol 0.083% 2.5 MG/3 ML Neb Soln NEB PRN (20:07)
[2021-07-30] MEDS ORDERED: Enoxaparin 40 MG/0.4 ML Syringe SUBCUT SCH (20:07)
[2021-07-30] MEDS ORDERED: Acetaminophen 325 MG Tab PO PRN (20:07)
[2021-07-30] MEDS ORDERED: Bisacodyl 5 MG Tab PO PRN (20:07)
[2021-07-30] MEDS ORDERED: Docusate Sodium 100 MG Cap PO PRN (20:07)
[2021-07-30 20:25] LABS: HEMOGLOBIN A1C 6.9 % (4.5-6.2)
[2021-07-30] MEDS: Sodium Chloride 0.9% 1,000 ML IV SCH (20:26)
--- NOTE | 2021-07-30 20:34 | CRLCT ---
For Patients: As a result of the Century Cures Act, medical imaging exams and procedure reports are released immediately into your electronic medical record. You may view this report before your referring provider. If you have questions, please contact your health care provider. INDICATION: Great toe with cellulitis/black spot. TECHNIQUE: CT left foot without contrast. COMPARISON: None. FINDINGS: Bones: Alignment is normal. No sign of acute fracture. No suspicious bony lesions. No areas of cortical erosion. Joints: Mild degenerative changes of the midfoot. Soft tissues: Diffuse soft tissue swelling and edema, particularly along the plantar aspect of the foot, as well as along the great toe. No subcutaneous emphysema. Mild ulceration along the distal aspect of the great toe. IMPRESSION: 1. Soft tissue swelling and edema of the plantar foot and great toe. No discrete fluid collection or subcutaneous emphysema. 2. No osseous erosion or findings to suggest osteomyelitis. Please note that all CT scans at this facility use dose modulation, iterative reconstruction, and/or weight-based dosing when appropriate to reduce radiation dose to as low as reasonably achievable. Dictated by Ja Bradley MD @ 07/30/2021 8:32:49 PM (Electronically Signed)
--- NOTE | 2021-07-30 20:42 | CRLCT ---
For Patients: As a result of the Century Cures Act, medical imaging exams and procedure reports are released immediately into your electronic medical record. You may view this report before your referring provider. If you have questions, please contact your health care provider. INDICATION: Medial midthigh circular scab/redness. Rule out abscess. TECHNIQUE: CT right femur with 100 mL of Isovue-300 IV contrast. Coronal and sagittal reformats were generated. COMPARISON: None. FINDINGS: Bones: Alignment is normal. No sign of acute fracture. No suspicious bony lesions. Joints: Mild degenerative changes of the right hip. Soft tissues: Mild soft tissue thickening and stranding in the medial portion of the thigh, adjacent to the area of skin marker. No discrete fluid collection or subcutaneous gas. IMPRESSION: Mild soft tissue edema, suggestive of cellulitis. No abscess. Please note that all CT scans at this facility use dose modulation, iterative reconstruction, and/or weight-based dosing when appropriate to reduce radiation dose to as low as reasonably achievable. Dictated by Ja Bradley MD @ 07/30/2021 8:40:39 PM (Electronically Signed)
[2021-07-30] MEDS ORDERED: Pantoprazole 40 MG Vial IV SCH (21:00)
[2021-07-30] MEDS: Insulin Lispro 100 Unit/ML 3 ML KwikPen SUBCUT SCH (21:20)
[2021-07-30] MEDS: Pregabalin 100 MG Cap PO SCH (21:21)
[2021-07-30] MEDS ORDERED: Potassium Chloride 20 MEQ Tab.ER PO ONE (21:30)
[2021-07-30] MEDS: Acetaminophen/oxyCODONE 325-5 MG Tab PO PRN (21:32)
[2021-07-31] MEDS ORDERED: ceFAZolin 1 GM in Sodium Chloride 0.9% 50 ML IV SCH ×2
[2021-07-31] MEDS ORDERED: Meropenem 500 MG in Sodium Chloride 0.9% 50 ML IV SCH (01:00)
[2021-07-31] MEDS: Acetaminophen/oxyCODONE 325-5 MG Tab PO PRN ×5 (04:43→23:47)
[2021-07-31] MEDS: Sodium Chloride 0.9% 1,000 ML IV SCH (06:23)
[2021-07-31] MEDS ORDERED: Potassium Chloride 20 MEQ Tab.ER PO ONE ×2 (08:30→17:00)
[2021-07-31] MEDS: Insulin Lispro 100 Unit/ML 3 ML KwikPen SUBCUT SCH ×4 (09:29→21:28)
[2021-07-31] MEDS: Losartan 50 MG Tab PO SCH (09:30)
[2021-07-31] MEDS: Atenolol 25 MG Tab PO SCH (09:34)
[2021-07-31] MEDS: Pregabalin 100 MG Cap PO SCH ×3 (09:34→21:36)
[2021-07-31] MEDS: Linezolid 600 MG in Premix Bag 1 BAG IV SCH ×2 (09:36→21:33)
--- NOTE | 2021-07-31 09:49 | US ---
VL Duplex Lwr Ext Art Comp Bi CLINICAL HISTORY: Cellulitis left foot FINDINGS: Doppler images show multiphasic waveforms downward through the right lower extremity from the common femoral artery downward through the dorsal pedal and posterior tibial arteries. There is a focal elevation of velocity in the distal SFA without change waveforms. There is a drop-off in velocity in the anterior tibial and peroneal arteries proximally. Monophasic waveforms are seen from the left common femoral artery downward through the dorsal pedal and posterior tibial arteries. There are no significant velocity changes. IMPRESSION: Monophasic waveforms through the left lower extremity suggests left iliac artery stenosis Possible mild stenosis in the distal popliteal artery or tibioperoneal trunk
[2021-07-31] MEDS: HYDROmorphone 0.5 MG/0.5 ML Syringe IVPUSH PRN ×2 (12:11→16:34)
[2021-07-31] MEDS: Meropenem 1 GM in Sodium Chloride 0.9% 100 ML IV SCH ×2 (14:09→22:54)
--- NOTE | 2021-07-31 15:09 | CONS ---
DATE OF SERVICE: 07/31/2021 REFERRING PHYSICIAN: CONSULTING PHYSICIAN: Sabrina Plaza PA-C ADMITTING DIAGNOSIS: Cellulitis and abscess of left foot. HISTORY OF PRESENT ILLNESS: Evangelina was asked to be seen in consultation. Evangelina is a 56- year-old female who presented to the emergency room for evaluation of left great toe infection. She reports 2 days prior to her emergency department visit, that she had stepped on something, and she noticed blood on the floor and looked at her foot, and she stated that her great toe had a hole in it, and half her foot was red, swollen, and painful. With admission to the emergency department, her white count was 20.7 and potassium 3.4. She did have a glucose of 233. Culture and sensitivity were obtained. Evangelina states that she did have a stent put in her left leg because her middle toe turned black. The stent was put in [place] in she thought January of 2021. She reports since the stent has been put in, she has had better circulation. Currently reports pain in her foot 5/10. The great toe is bleeding. Skin is pink, swollen, warm to touch. History of diabetes since she was 15 years old. She does not always check her blood sugars and has not been taking the metformin. CURRENT MEDICATIONS: 1. Lyrica 100 mg p.o. t.i.d. 2. Atenolol 50 mg p.o. daily. 3. Aspirin 81 mg p.o. daily. 4. Plavix one tablet p.o. daily. 5. Losartan 25 mg p.o. daily. 6. Metformin is prescribed to her to take b.i.d., but she has not been taking it. PAST MEDICAL HISTORY: Wears corrective lenses for near and farsightedness, hypercholesterolemia, hypertension, diabetes type 2, fibromyalgia, rheumatoid arthritis, and history of breast cancer. PAST SURGICAL HISTORY: Includes cholecystectomy, inguinal hernia repair, section, D and C, and breast lumpectomy for breast cancer. FAMILY HISTORY: Negative for any pertinent positives and negatives. SOCIAL HISTORY: Single, lives with significant other. 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 Smokes cigarettes, unknown amount. Caffeine, 1-1/2 cups of coffee a day. No recreational drugs. REVIEW OF SYSTEMS: CONSTITUTIONAL: Reports fever, chills, fatigue, and decreased appetite. HEENT: Negative for headache or dizziness. LUNGS: No shortness of breath or cough. CARDIOVASCULAR: Denies any chest pain or shortness of breath. GASTROINTESTINAL: No nausea, vomiting, diarrhea, or constipation. No red or black stools. GENITOURINARY: Negative for UTI signs and symptoms. MUSCULOSKELETAL: Reports right leg pain and left foot pain as chief complaint. SKIN: Negative for any rash. PSYCHIATRIC: Negative for insomnia, depression, or anxiety. NEUROLOGIC: Negative. Remainder of review of systems negative for any pertinent positives and negatives. OBJECTIVE: GENERAL: Evangelina Forde is a pleasant 56-year-old female. She is lying comfortably in bed. HEENT: Her height is 5 feet 3 inches and weight 131 pounds. TPR is 99.3, 89, and 16. Blood pressure 118/65. HEENT: Negative. NECK: Supple. HEART: Regular rate and rhythm. LUNGS: Clear. ABDOMEN: Soft and nontender. EXTREMITIES: The right lower extremity is negative, some peripheral neuropathy noted, and left foot is red, swollen, pink, warm to touch. Post tibial pulse is faint. There is a puncture wound in the left great toe which has been bleeding. ASSESSMENT: 1. Cellulitis, left foot. 2. Diabetes type 2, uncontrolled. 3. Hypokalemia. 4. Essential hypertension. 5. History of smoking. 6. Gram stain did show rare gram-positive cocci, and culture of the wound showed Streptococcus group A. PLAN: 1. Discontinue vancomycin. 2. Zyvox 600 mg q.12 hours IV. 3. Arterial duplex, left leg. 4. Put dressing on left puncture wound, left great toe. May shower. 5. Regular diet consisting carb's 1800 to 2200. 6. Intake and output. 7. Check CBC, CMP, magnesium, and phosphorus in the a.m. 8. We will evaluate p.r.n. or in a.m. Sabrina Plaza PA-C /[id number]
--- NOTE | 2021-07-31 16:29 | PCM.PN ---
- General Info Date of Service: 07/31/21 Subjective Update: Ms. Forde is a 56-year-old woman who was admitted through the emergency department last night with pain and erythema of her left foot secondary to underlying cellulitis. Has a known history of peripheral arterial disease in the left leg and is status post previous angioplasty with stent. She began to experience pain and swelling in the foot over the past few days and presented to the emergency department last night. She was started on broad-spectrum IV a ntibiotics and has been seen and evaluated this morning by Dr. Rojo. Functional Status: Reports: Tolerating Diet, Urinating - Review of Systems General: Reports: Weakness, Fatigue. Denies: Fever, Chills Pulmonary: Reports: No Symptoms Cardiovascular: Reports: No Symptoms Gastrointestinal: Reports: No Symptoms Genitourinary: Reports: No Symptoms Musculoskeletal: Reports: Other (Pain and erythema left foot) - Patient Data Vitals - Most Recent: Last Vital Signs Temp 98.6 F 07/31/21 14:55 Pulse 85 07/31/21 14:55 Resp 16 07/31/21 14:55 BP 129/72 07/31/21 14:55 Pulse Ox 99 07/31/21 14:55 Weight - Most Recent: 131 lb I&O - Last 24 Hours: Intake & Output 07/31/21 07/31/21 07/31/21 06:59 14:59 22:59 Intake Total 850 720 Balance 850 720 Lab Results Last 24 Hours: Laboratory Results - last 24 hr 07/30/21 07/30/21 07/30/21 Range/Units 16:15 16:15 16:46 WBC (4.5-11.0) K/uL RBC (3.30-5.50) M/uL Hgb (12.0-15.0) g/dL Hct (36.0-48.0) % MCV (80-98) fL MCH (27-31) pg MCHC (32-36) % Plt Count 295 (150-400) K/uL Neut % (Auto) (36-66) % Lymph % (Auto) (24-44) % Kings % (Auto) (2-6) % Eos % (Auto) (2-4) % Baso % (Auto) (0-1) % Sodium 135 L (140-148) mmol/L Potassium 3.4 L (3.6-5.2) mmol/L Chloride 100 (100-108) mmol/L Carbon Dioxide 23 (21-32) mmol/L Anion Gap 15.4 H (5.0-14.0) mmol/L BUN 17 (7-18) mg/dL Creatinine 1.3 H D (0.6-1.0) mg/dL Est Cr Clr Drug Dosing 39.02 mL/min Estimated GFR (MDRD) 42 L (>60) Glucose 233 H (74-106) mg/dL POC Glucose (74-106) mg/dL Hemoglobin A1c (4.5-6.2) % Lactic Acid 2.0 (0.4-2.0) mmol/L Calcium 8.6 (8.5-10.1) mg/dL Total Bilirubin 0.5 D (0.2-1.0) mg/dL AST 12 L (15-37) U/L ALT 14 (12-78) U/L Alkaline Phosphatase 87 (46-116) U/L C-Reactive Protein > 25.00 H (0.0-0.3) mg/dL Total Protein 7.1 (6.4-8.2) g/dL Albumin 2.7 L (3.4-5.0) g/dL Globulin 4.4 H (2.3-3.5) g/dL Albumin/Globulin Ratio 0.6 L (1.2-2.2) Urine Color (YELLOW) Urine Appearance (CLEAR) Urine pH (5.0-8.0) Ur Specific Bertrand (1.008-1.030) Urine Protein (NEGATIVE) mg/dL Urine Glucose (UA) (NEGATIVE) mg/dL Urine Ketones (NEGATIVE) mg/dL Urine Occult Blood (NEGATIVE) Urine Nitrite (NEGATIVE) Urine Bilirubin (NEGATIVE) Urine Urobilinogen (0.2-1.0) EU/dL Ur Leukocyte Esterase (NEGATIVE) Urine RBC (0-5) Urine WBC (0-5) Ur Epithelial Cells Amorphous Sediment Urine Bacteria Urine Mucus Urine Other Influenza Type A RNA (NEGATIVE) RSV RNA (INAAT) (NEGATIVE) Influenza Type B RNA (NEGATIVE) SARS-CoV-2 RNA (AMANDA) (NEGATIVE) 07/30/21 07/30/21 07/30/21 Range/Units 16:49 20:07 20:59 WBC (4.5-11.0) K/uL RBC (3.30-5.50) M/uL Hgb (12.0-15.0) g/dL Hct (36.0-48.0) % MCV (80-98) fL MCH (27-31) pg MCHC (32-36) % Plt Count (150-400) K/uL Neut % (Auto) (36-66) % Lymph % (Auto) (24-44) % Kings % (Auto) (2-6) % Eos % (Auto) (2-4) % Baso % (Auto) (0-1) % Sodium (140-148) mmol/L Potassium (3.6-5.2) mmol/L Chloride (100-108) mmol/L Carbon Dioxide (21-32) mmol/L Anion Gap (5.0-14.0) mmol/L BUN (7-18) mg/dL Creatinine (0.6-1.0) mg/dL Est Cr Clr Drug Dosing mL/min Estimated GFR (MDRD) (>60) Glucose (74-106) mg/dL POC Glucose 178 H (74-106) mg/dL Hemoglobin A1c 6.9 H (4.5-6.2) % Lactic Acid (0.4-2.0) mmol/L Calcium (8.5-10.1) mg/dL Total Bilirubin (0.2-1.0) mg/dL AST (15-37) U/L ALT (12-78) U/L Alkaline Phosphatase (46-116) U/L C-Reactive Protein (0.0-0.3) mg/dL Total Protein (6.4-8.2) g/dL Albumin (3.4-5.0) g/dL Globulin (2.3-3.5) g/dL Albumin/Globulin Ratio (1.2-2.2) Urine Color (YELLOW) Urine Appearance (CLEAR) Urine pH (5.0-8.0) Ur Specific Bertrand (1.008-1.030) Urine Protein (NEGATIVE) mg/dL Urine Glucose (UA) (NEGATIVE) mg/dL Urine Ketones (NEGATIVE) mg/dL Urine Occult Blood (NEGATIVE) Urine Nitrite (NEGATIVE) Urine Bilirubin (NEGATIVE) Urine Urobilinogen (0.2-1.0) EU/dL Ur Leukocyte Esterase (NEGATIVE) Urine RBC (0-5) Urine WBC (0-5) Ur Epithelial Cells Amorphous Sediment Urine Bacteria Urine Mucus Urine Other Influenza Type A RNA Negative (NEGATIVE) RSV RNA (INAAT) Negative (NEGATIVE) Influenza Type B RNA Negative (NEGATIVE) SARS-CoV-2 RNA (AMANDA) Negative (NEGATIVE) 07/31/21 07/31/21 07/31/21 Range/Units 00:03 05:40 05:40 WBC 18.1 H (4.5-11.0) K/uL RBC 3.47 (3.30-5.50) M/uL Hgb 9.9 L (12.0-15.0) g/dL Hct 29.4 L (36.0-48.0) % MCV 85 (80-98) fL MCH 29 (27-31) pg MCHC 34 (32-36) % Plt Count 266 (150-400) K/uL Neut % (Auto) 81.0 H (36-66) % Lymph % (Auto) 11.5 L (24-44) % Kings % (Auto) 5.6 (2-6) % Eos % (Auto) 1.0 L (2-4) % Baso % (Auto) 0.2 (0-1) % Sodium 138 L (140-148) mmol/L Potassium 3.5 L (3.6-5.2) mmol/L Chloride 106 (100-108) mmol/L Carbon Dioxide 22 (21-32) mmol/L Anion Gap 13.5 (5.0-14.0) mmol/L BUN 14 (7-18) mg/dL Creatinine 0.8 (0.6-1.0) mg/dL Est Cr Clr Drug Dosing 63.41 mL/min Estimated GFR (MDRD) > 60 (>60) Glucose 148 H (74-106) mg/dL POC Glucose (74-106) mg/dL Hemoglobin A1c (4.5-6.2) % Lactic Acid (0.4-2.0) mmol/L Calcium 8.0 L (8.5-10.1) mg/dL Total Bilirubin (0.2-1.0) mg/dL AST (15-37) U/L ALT (12-78) U/L Alkaline Phosphatase (46-116) U/L C-Reactive Protein 24.39 H (0.0-0.3) mg/dL Total Protein (6.4-8.2) g/dL Albumin (3.4-5.0) g/dL Globulin (2.3-3.5) g/dL Albumin/Globulin Ratio (1.2-2.2) Urine Color Yellow (YELLOW) Urine Appearance Slightly cloudy A (CLEAR) Urine pH 5.5 (5.0-8.0) Ur Specific Bertrand 1.020 (1.008-1.030) Urine Protein 100 H (NEGATIVE) mg/dL Urine Glucose (UA) Negative (NEGATIVE) mg/dL Urine Ketones Negative (NEGATIVE) mg/dL Urine Occult Blood Negative (NEGATIVE) Urine Nitrite Negative (NEGATIVE) Urine Bilirubin Negative (NEGATIVE) Urine Urobilinogen 0.2 (0.2-1.0) EU/dL Ur Leukocyte Esterase Negative (NEGATIVE) Urine RBC 0-5 (0-5) Urine WBC 0-5 (0-5) Ur Epithelial Cells Moderate Amorphous Sediment Few Urine Bacteria Few Urine Mucus Few Urine Other See note Influenza Type A RNA (NEGATIVE) RSV RNA (INAAT) (NEGATIVE) Influenza Type B RNA (NEGATIVE) SARS-CoV-2 RNA (AMANDA) (NEGATIVE) 07/31/21 07/31/21 Range/Units 07:21 11:28 WBC (4.5-11.0) K/uL RBC (3.30-5.50) M/uL Hgb (12.0-15.0) g/dL Hct (36.0-48.0) % MCV (80-98) fL MCH (27-31) pg MCHC (32-36) % Plt Count (150-400) K/uL Neut % (Auto) (36-66) % Lymph % (Auto) (24-44) % Kings % (Auto) (2-6) % Eos % (Auto) (2-4) % Baso % (Auto) (0-1) % Sodium (140-148) mmol/L Potassium (3.6-5.2) mmol/L Chloride (100-108) mmol/L Carbon Dioxide (21-32) mmol/L Anion Gap (5.0-14.0) mmol/L BUN (7-18) mg/dL Creatinine (0.6-1.0) mg/dL Est Cr Clr Drug Dosing mL/min Estimated GFR (MDRD) (>60) Glucose (74-106) mg/dL POC Glucose 155 H 157 H (74-106) mg/dL Hemoglobin A1c (4.5-6.2) % Lactic Acid (0.4-2.0) mmol/L Calcium (8.5-10.1) mg/dL Total Bilirubin (0.2-1.0) mg/dL AST (15-37) U/L ALT (12-78) U/L Alkaline Phosphatase (46-116) U/L C-Reactive Protein (0.0-0.3) mg/dL Total Protein (6.4-8.2) g/dL Albumin (3.4-5.0) g/dL Globulin (2.3-3.5) g/dL Albumin/Globulin Ratio (1.2-2.2) Urine Color (YELLOW) Urine Appearance (CLEAR) Urine pH (5.0-8.0) Ur Specific Bertrand (1.008-1.030) Urine Protein (NEGATIVE) mg/dL Urine Glucose (UA) (NEGATIVE) mg/dL Urine Ketones (NEGATIVE) mg/dL Urine Occult Blood (NEGATIVE) Urine Nitrite (NEGATIVE) Urine Bilirubin (NEGATIVE) Urine Urobilinogen (0.2-1.0) EU/dL Ur Leukocyte Esterase (NEGATIVE) Urine RBC (0-5) Urine WBC (0-5) Ur Epithelial Cells Amorphous Sediment Urine Bacteria Urine Mucus Urine Other Influenza Type A RNA (NEGATIVE) RSV RNA (INAAT) (NEGATIVE) Influenza Type B RNA (NEGATIVE) SARS-CoV-2 RNA (AMANDA) (NEGATIVE) Dejon Results Last 24 Hours: Microbiology 07/30/21 16:00 Gram Stain - Final Toe, Left - Left Big Wound Culture - Preliminary Streptococcus Group A Med Orders - Current: Current Medications Acetaminophen (Acetaminophen 325 Mg Tab) 650 mg PO Q4H PRN PRN Reason: Pain (Mild 1-3)/fever Albuterol (Albuterol 0.083% 2.5 Mg/3 Ml Neb Soln) 2.5 mg NEB Q4H PRN PRN Reason: Shortness Of Breath/wheezing Atenolol (Atenolol 25 Mg Tab) 50 mg PO DAILY MADYSON Last Admin: 07/31/21 09:34 Dose: 50 mg Documented by: Bisacodyl (Bisacodyl 5 Mg Tab) 5 mg PO DAILY PRN PRN Reason: Constipation Docusate Sodium (Docusate Sodium 100 Mg Cap) 100 mg PO BID PRN PRN Reason: Constipation Enoxaparin Sodium (Enoxaparin 40 Mg/0.4 Ml Syringe) 40 mg SUBCUT Q24H [facility] Hydromorphone HCl (Hydromorphone 0.5 Mg/0.5 Ml Syringe) 0.5 mg IVPUSH Q2H PRN PRN Reason: Pain (moderate 4-6) Last Admin: 07/31/21 12:11 Dose: 0.5 mg Documented by: Meropenem 1 gm/ Sodium (Chloride) 100 mls @ 200 mls/hr IV Q8H [facility] Last Admin: 07/31/21 14:09 Dose: 200 mls/hr Documented by: Linezolid 600 mg/ Premix 300 mls @ 300 mls/hr IV Q12H [facility] Last Admin: 07/31/21 09:36 Dose: 300 mls/hr Documented by: Insulin Human Lispro (Insulin Lispro 100 Unit/Ml 3 Ml Kwikpen) 0 unit SUBCUT QIDACANDBED [facility]; Protocol Last Admin: 07/31/21 12:17 Dose: 1 unit Documented by: Losartan Potassium (Losartan 50 Mg Tab) 25 mg PO DAILY [facility] Last Admin: 07/31/21 09:30 Dose: 25 mg Documented by: Ondansetron HCl (Ondansetron 4 Mg Tab.Dis) 4 mg PO Q6H PRN PRN Reason: Nausea able to take PO Ondansetron HCl (Ondansetron 4 Mg/2 Ml Sdv) 4 mg IV Q4H PRN PRN Reason: Nausea/Vomiting Oxycodone/Acetaminophen (Acetaminophen/Oxycodone 325-5 Mg Tab) 1 tab PO Q4H PRN PRN Reason: Pain (moderate 4-6) Last Admin: 07/31/21 14:08 Dose: 1 tab Documented by: Pantoprazole Sodium (Pantoprazole 40 Mg Tab.Cr) 40 mg PO BEDTIME [facility] Potassium Chloride (Potassium Chloride 20 Meq Tab.Er) 40 meq PO ONETIME ONE Stop: 07/31/21 17:01 Pregabalin (Pregabalin 100 Mg Cap) 100 mg PO TID [facility] Last Admin: 07/31/21 14:09 Dose: 100 mg Documented by: Discontinued Medications Enoxaparin Sodium (Enoxaparin 40 Mg/0.4 Ml Syringe) 40 mg SUBCUT DAILY [facility] Last Admin: 07/30/21 21:21 Dose: 40 mg Documented by: Hydromorphone HCl (Hydromorphone 0.5 Mg/0.5 Ml Syringe) 0.5 mg IVPUSH ONETIME ONE Stop: 07/30/21 19:15 Last Admin: 07/30/21 19:21 Dose: 0.5 mg Documented by: Cefazolin Sodium 1 gm/ Sodium (Chloride) 50 mls @ 100 mls/hr IV ONETIME ONE Stop: 07/30/21 16:47 Last Admin: 07/30/21 16:27 Dose: 100 mls/hr Documented by: Ertapenem 1 gm/ Sodium (Chloride) 100 mls @ 200 mls/hr IV ONETIME ONE Stop: 07/30/21 17:30 Last Admin: 07/30/21 17:10 Dose: 200 mls/hr Documented by: Sodium Chloride (Normal Saline) 1,000 mls @ 500 mls/hr IV ASDIRECTED [facility] Last Admin: 07/30/21 17:49 Dose: 500 mls/hr Documented by: Sodium Chloride (Normal Saline) 80 mls @ 3 mls/sec IV ASDIRECTED [facility] Last Admin: 07/30/21 19:55 Dose: 3 mls/sec Documented by: Sodium Chloride (Normal Saline) 1,000 mls @ 125 mls/hr IV ASDIRECTED [facility] Last Admin: 07/31/21 06:23 Dose: 125 mls/hr Documented by: Cefazolin Sodium 1 gm/ Sodium (Chloride) 50 mls @ 200 mls/hr IV Q8H MADYSON Meropenem 1 gm/ Sodium (Chloride) 50 mls @ 100 mls/hr IV Q8H [facility] Meropenem 500 mg/ Sodium (Chloride) 50 mls @ 100 mls/hr IV Q8H [facility] Last Admin: 07/31/21 01:08 Dose: 100 mls/hr Documented by: Vancomycin HCl 1 gm/ Sodium (Chloride) 250 mls @ 166.667 mls/hr IV Q24H [facility] Last Admin: 07/30/21 21:34 Dose: 166.667 mls/hr Documented by: Vancomycin HCl 1 gm/ Sodium (Chloride) 250 mls @ 165 mls/hr IV Q12H [facility] Iopamidol (Iopamidol 612 Mg/Ml 100 Ml Bottle) 100 ml IV . DIRECTED [facility] Last Admin: 07/30/21 19:55 Dose: 100 ml Documented by: Pantoprazole Sodium (Pantoprazole 40 Mg Vial) 40 mg IV BEDTIME MADYSON Last Admin: 07/30/21 21:22 Dose: 40 mg Documented by: Potassium Chloride (Potassium Chloride 20 Meq Tab.Er) 20 meq PO ONETIME ONE Stop: 07/30/21 21:31 Last Admin: 07/30/21 21:32 Dose: 20 meq Documented by: Potassium Chloride (Potassium Chloride 20 Meq Tab.Er) 40 meq PO ONETIME ONE Stop: 07/31/21 08:31 Last Admin: 07/31/21 09:27 Dose: 40 meq Documented by: Vancomycin HCl (Vancomycin Pharmacy To Dose) 1 gm IV ASDIRECTED [facility] - Exam General: Alert, Oriented, Cooperative, Moderate Distress Lungs: Clear to Auscultation, Normal Respiratory Effort, Decreased Breath Sounds Cardiovascular: Regular Rate, Regular Rhythm, No Murmurs GI/Abdominal Exam: Soft, Non-Tender, No Organomegaly, No Distention Extremities: Other (Erythema and modest swelling left foot) - Patient Data Lab Results Last 24 hrs: Laboratory Results - last 24 hr 07/30/21 07/30/21 07/30/21 Range/Units 16:15 16:15 16:46 WBC (4.5-11.0) K/uL RBC (3.30-5.50) M/uL Hgb (12.0-15.0) g/dL Hct (36.0-48.0) % MCV (80-98) fL MCH (27-31) pg MCHC (32-36) % Plt Count 295 (150-400) K/uL Neut % (Auto) (36-66) % Lymph % (Auto) (24-44) % Kings % (Auto) (2-6) % Eos % (Auto) (2-4) % Baso % (Auto) (0-1) % Sodium 135 L (140-148) mmol/L Potassium 3.4 L (3.6-5.2) mmol/L Chloride 100 (100-108) mmol/L Carbon Dioxide 23 (21-32) mmol/L Anion Gap 15.4 H (5.0-14.0) mmol/L BUN 17 (7-18) mg/dL Creatinine 1.3 H D (0.6-1.0) mg/dL Est Cr Clr Drug Dosing 39.02 mL/min Estimated GFR (MDRD) 42 L (>60) Glucose 233 H (74-106) mg/dL POC Glucose (74-106) mg/dL Hemoglobin A1c (4.5-6.2) % Lactic Acid 2.0 (0.4-2.0) mmol/L Calcium 8.6 (8.5-10.1) mg/dL Total Bilirubin 0.5 D (0.2-1.0) mg/dL AST 12 L (15-37) U/L ALT 14 (12-78) U/L Alkaline Phosphatase 87 (46-116) U/L C-Reactive Protein > 25.00 H (0.0-0.3) mg/dL Total Protein 7.1 (6.4-8.2) g/dL Albumin 2.7 L (3.4-5.0) g/dL Globulin 4.4 H (2.3-3.5) g/dL Albumin/Globulin Ratio 0.6 L (1.2-2.2) Urine Color (YELLOW) Urine Appearance (CLEAR) Urine pH (5.0-8.0) Ur Specific Bertrand (1.008-1.030) Urine Protein (NEGATIVE) mg/dL Urine Glucose (UA) (NEGATIVE) mg/dL Urine Ketones (NEGATIVE) mg/dL Urine Occult Blood (NEGATIVE) Urine Nitrite (NEGATIVE) Urine Bilirubin (NEGATIVE) Urine Urobilinogen (0.2-1.0) EU/dL Ur Leukocyte Esterase (NEGATIVE) Urine RBC (0-5) Urine WBC (0-5) Ur Epithelial Cells Amorphous Sediment Urine Bacteria Urine Mucus Urine Other Influenza Type A RNA (NEGATIVE) RSV RNA (INAAT) (NEGATIVE) Influenza Type B RNA (NEGATIVE) SARS-CoV-2 RNA (AMANDA) (NEGATIVE) 07/30/21 07/30/21 07/30/21 Range/Units 16:49 20:07 20:59 WBC (4.5-11.0) K/uL RBC (3.30-5.50) M/uL Hgb (12.0-15.0) g/dL Hct (36.0-48.0) % MCV (80-98) fL MCH (27-31) pg MCHC (32-36) % Plt Count (150-400) K/uL Neut % (Auto) (36-66) % Lymph % (Auto) (24-44) % Kings % (Auto) (2-6) % Eos % (Auto) (2-4) % Baso % (Auto) (0-1) % Sodium (140-148) mmol/L Potassium (3.6-5.2) mmol/L Chloride (100-108) mmol/L Carbon Dioxide (21-32) mmol/L Anion Gap (5.0-14.0) mmol/L BUN (7-18) mg/dL Creatinine (0.6-1.0) mg/dL Est Cr Clr Drug Dosing mL/min Estimated GFR (MDRD) (>60) Glucose (74-106) mg/dL POC Glucose 178 H (74-106) mg/dL Hemoglobin A1c 6.9 H (4.5-6.2) % Lactic Acid (0.4-2.0) mmol/L Calcium (8.5-10.1) mg/dL Total Bilirubin (0.2-1.0) mg/dL AST (15-37) U/L ALT (12-78) U/L Alkaline Phosphatase (46-116) U/L C-Reactive Protein (0.0-0.3) mg/dL Total Protein (6.4-8.2) g/dL Albumin (3.4-5.0) g/dL Globulin (2.3-3.5) g/dL Albumin/Globulin Ratio (1.2-2.2) Urine Color (YELLOW) Urine Appearance (CLEAR) Urine pH (5.0-8.0) Ur Specific Bertrand (1.008-1.030) Urine Protein (NEGATIVE) mg/dL Urine Glucose (UA) (NEGATIVE) mg/dL Urine Ketones (NEGATIVE) mg/dL Urine Occult Blood (NEGATIVE) Urine Nitrite (NEGATIVE) Urine Bilirubin (NEGATIVE) Urine Urobilinogen (0.2-1.0) EU/dL Ur Leukocyte Esterase (NEGATIVE) Urine RBC (0-5) Urine WBC (0-5) Ur Epithelial Cells Amorphous Sediment Urine Bacteria Urine Mucus Urine Other Influenza Type A RNA Negative (NEGATIVE) RSV RNA (INAAT) Negative (NEGATIVE) Influenza Type B RNA Negative (NEGATIVE) SARS-CoV-2 RNA (AMANDA) Negative (NEGATIVE) 07/31/21 07/31/21 07/31/21 Range/Units 00:03 05:40 05:40 WBC 18.1 H (4.5-11.0) K/uL RBC 3.47 (3.30-5.50) M/uL Hgb 9.9 L (12.0-15.0) g/dL Hct 29.4 L (36.0-48.0) % MCV 85 (80-98) fL MCH 29 (27-31) pg MCHC 34 (32-36) % Plt Count 266 (150-400) K/uL Neut % (Auto) 81.0 H (36-66) % Lymph % (Auto) 11.5 L (24-44) % Kings % (Auto) 5.6 (2-6) % Eos % (Auto) 1.0 L (2-4) % Baso % (Auto) 0.2 (0-1) % Sodium 138 L (140-148) mmol/L Potassium 3.5 L (3.6-5.2) mmol/L Chloride 106 (100-108) mmol/L Carbon Dioxide 22 (21-32) mmol/L Anion Gap 13.5 (5.0-14.0) mmol/L BUN 14 (7-18) mg/dL Creatinine 0.8 (0.6-1.0) mg/dL Est Cr Clr Drug Dosing 63.41 mL/min Estimated GFR (MDRD) > 60 (>60) Glucose 148 H (74-106) mg/dL POC Glucose (74-106) mg/dL Hemoglobin A1c (4.5-6.2) % Lactic Acid (0.4-2.0) mmol/L Calcium 8.0 L (8.5-10.1) mg/dL Total Bilirubin (0.2-1.0) mg/dL AST (15-37) U/L ALT (12-78) U/L Alkaline Phosphatase (46-116) U/L C-Reactive Protein 24.39 H (0.0-0.3) mg/dL Total Protein (6.4-8.2) g/dL Albumin (3.4-5.0) g/dL Globulin (2.3-3.5) g/dL Albumin/Globulin Ratio (1.2-2.2) Urine Color Yellow (YELLOW) Urine Appearance Slightly cloudy A (CLEAR) Urine pH 5.5 (5.0-8.0) Ur Specific Bertrand 1.020 (1.008-1.030) Urine Protein 100 H (NEGATIVE) mg/dL Urine Glucose (UA) Negative (NEGATIVE) mg/dL Urine Ketones Negative (NEGATIVE) mg/dL Urine Occult Blood Negative (NEGATIVE) Urine Nitrite Negative (NEGATIVE) Urine Bilirubin Negative (NEGATIVE) Urine Urobilinogen 0.2 (0.2-1.0) EU/dL Ur Leukocyte Esterase Negative (NEGATIVE) Urine RBC 0-5 (0-5) Urine WBC 0-5 (0-5) Ur Epithelial Cells Moderate Amorphous Sediment Few Urine Bacteria Few Urine Mucus Few Urine Other See note Influenza Type A RNA (NEGATIVE) RSV RNA (INAAT) (NEGATIVE) Influenza Type B RNA (NEGATIVE) SARS-CoV-2 RNA (AMANDA) (NEGATIVE) 07/31/21 07/31/21 Range/Units 07:21 11:28 WBC (4.5-11.0) K/uL RBC (3.30-5.50) M/uL Hgb (12.0-15.0) g/dL Hct (36.0-48.0) % MCV (80-98) fL MCH (27-31) pg MCHC (32-36) % Plt Count (150-400) K/uL Neut % (Auto) (36-66) % Lymph % (Auto) (24-44) % Kings % (Auto) (2-6) % Eos % (Auto) (2-4) % Baso % (Auto) (0-1) % Sodium (140-148) mmol/L Potassium (3.6-5.2) mmol/L Chloride (100-108) mmol/L Carbon Dioxide (21-32) mmol/L Anion Gap (5.0-14.0) mmol/L BUN (7-18) mg/dL Creatinine (0.6-1.0) mg/dL Est Cr Clr Drug Dosing mL/min Estimated GFR (MDRD) (>60) Glucose (74-106) mg/dL POC Glucose 155 H 157 H (74-106) mg/dL Hemoglobin A1c (4.5-6.2) % Lactic Acid (0.4-2.0) mmol/L Calcium (8.5-10.1) mg/dL Total Bilirubin (0.2-1.0) mg/dL AST (15-37) U/L ALT (12-78) U/L Alkaline Phosphatase (46-116) U/L C-Reactive Protein (0.0-0.3) mg/dL Total Protein (6.4-8.2) g/dL Albumin (3.4-5.0) g/dL Globulin (2.3-3.5) g/dL Albumin/Globulin Ratio (1.2-2.2) Urine Color (YELLOW) Urine Appearance (CLEAR) Urine pH (5.0-8.0) Ur Specific Bertrand (1.008-1.030) Urine Protein (NEGATIVE) mg/dL Urine Glucose (UA) (NEGATIVE) mg/dL Urine Ketones (NEGATIVE) mg/dL Urine Occult Blood (NEGATIVE) Urine Nitrite (NEGATIVE) Urine Bilirubin (NEGATIVE) Urine Urobilinogen (0.2-1.0) EU/dL Ur Leukocyte Esterase (NEGATIVE) Urine RBC (0-5) Urine WBC (0-5) Ur Epithelial Cells Amorphous Sediment Urine Bacteria Urine Mucus Urine Other Influenza Type A RNA (NEGATIVE) RSV RNA (INAAT) (NEGATIVE) Influenza Type B RNA (NEGATIVE) SARS-CoV-2 RNA (AMANDA) (NEGATIVE) Result Diagrams: 07/31/21 05:40 07/31/21 05:40 Dejon Results Last 24 hrs: Microbiology 07/30/21 16:00 Gram Stain - Final Toe, Left - Left Big Wound Culture - Preliminary Streptococcus Group A Sepsis Event Note - Evaluation Sepsis Screening Result: No Definite Risk - Focused Exam Vital Signs: Vital Signs Temp Pulse Pulse Resp BP BP Pulse Ox 07/31/21 14:55 98.6 F 85 16 129/72 99 07/31/21 10:18 99.3 F 88 16 120/78 97 07/31/21 09:34 86 151/85 H 07/31/21 09:30 151/85 H 07/31/21 08:00 99.3 F 89 16 118/65 96 - Problem List Review Problem List Initiated/Reviewed/Updated: Yes - My Orders Last 24 Hours: My Active Orders 07/31/21 16:18 Convert IV to Saline Lock [OM.PC] Routine 07/31/21 17:00 Potassium Chloride [Klor-Con M20] 40 meq PO ONETIME ONE 08/01/21 05:00 BASIC METABOLIC PANEL,BMP [CHEM] Timed CBC WITH AUTO DIFF [HEME] Timed - Plan Plan:: ASSESSMENT AND PLAN OF CARE CELLULITIS LEFT FOOT, INCLUDING GREAT TOE & 2ND TOE. RIGHT THIGH WITH WOUND- stable since admission, arterial Doppler studies obtained this morning showing monophasic flow in the lower leg -Saline lock IV -IV Zofran 4mg every 4 hours as needed for nausea -IV Meropenem 1 gram every 8 hours and Zyvox twice daily -IV Dilaudid 0.5 mg every 2 hours for pain control as needed -continuous pulse ox. while IV narcotics -blood cultures X2 and wound culture pending -a.m. labs: CBC, BMP DIABETES TYPE 2 UNCONTROLLED- reports blood glucose have been in the 200's or higher. does not take insulin -hemoglobin A1c pending -blood glucose check before meals and at bedtime -medium dose sliding scale coverage -consistent carb diet HYPOKALEMIA -Oral potassium replacement -AM Labs BMP HYPERTENSION -Atenolol 50 mg daily -Cozaar 25 mg daily -Monitor vital signs every 4 hours TOBACCO USE- smokes half a pack daily -declines patch or gum Maintenance issues -Home medications- ordered -Nutrition: Consistent Carb diet. -Mejia catheter: not indicated -DVT: Lovenox 40 mg subcut. -PPI: IV Protonix 40 mg daily -tobacco- smoker- declines patch or gum CODE STATUS: FULL Admission status: Admit 2 [facility] Admission justification. This patient will be admitted for inpatient services and is medically appropriate meeting medical necessity for inpatient admission as outlined in my documentation. I reasonably expect the patient will require inpatient services that span. Time over 2 midnights. I reasonably expect this patient to be discharged or transferred within 96 hours after admission to the critical access hospital. Disposition: home with Family Primary care provider: Giuseppe Abdalla [facility] Hospitalist: Dr. Romano Surgery Service: Dr. Rojo
[2021-07-31] MEDS ORDERED: Pantoprazole 40 MG Tab.CR PO SCH (21:00)
[2021-07-31] MEDS ORDERED: Enoxaparin 40 MG/0.4 ML Syringe SUBCUT SCH (21:00)
[2021-08-01] MEDS: Acetaminophen/oxyCODONE 325-5 MG Tab PO PRN ×4 (04:07→16:40)
[2021-08-01] MEDS: Meropenem 1 GM in Sodium Chloride 0.9% 100 ML IV SCH ×2 (05:43→14:59)
--- NOTE | 2021-08-01 08:16 | PN ---
DATE OF SERVICE: 08/01/2021 SUBJECTIVE: Evangelina currently is having quite a bit of pain in her left foot. States she just went out to use the restroom and pain increased. Vital signs have been stable. Oral intake 1560, urine output 400 is measured. REVIEW OF SYSTEMS: HEENT: Negative. NECK: Negative. HEART: No chest pain. Fast irregular heartbeat. LUNGS: No shortness of breath or cough. ABDOMEN: Denies any abdominal pain, heartburn, nausea, or vomiting. EXTREMITIES: Revealed pain in the left foot. NEUROLOGIC: Negative. PSYCHIATRIC: Negative for any depression, anxiety, or insomnia. Remainder of review of systems negative for any pertinent positives and negatives. OBJECTIVE: GENERAL: Evangelina Forde is a pleasant 56-year-old female. She is tearful. VITAL SIGNS: TPR is 98.8, 85, 16, blood pressure 131/74. HEENT: Negative. NECK: Supple. HEART: Regular rate and rhythm. LUNGS: Clear. EXTREMITIES: Left lower extremity less swelling is noted. There is an area of discoloration between the great toe and first toe on top of foot. Femoral pulses were not palpated by Pablo Rojo MD. Puncture wound remains and draining just drops of blood. ASSESSMENT: 1. Cellulitis, left foot including great toe and second toe. 2. Diabetes type 2, uncontrolled. 3. Hypokalemia. 4. Hypertension. 5. Tobacco use. PLAN: 1. Postoperative procedure note reviewed from vascular lower extremity angiogram on 03/20/2021. Surgeon was Rafal Hutchinson MD. 2. Magnesium was low today. Add magnesium 2 g IV q.6 hours. 3. Discussion with Evangelina in regard to needing to have a procedure done to open up the arteries. 4. We will evaluate p.r.n. or in a.m. Sabrina Plaza PA-C /[id number]
[2021-08-01] MEDS: HYDROmorphone 0.5 MG/0.5 ML Syringe IVPUSH PRN ×2 (08:25→14:59)
[2021-08-01] MEDS: Linezolid 600 MG in Premix Bag 1 BAG IV SCH (08:33)
[2021-08-01] MEDS: Insulin Lispro 100 Unit/ML 3 ML KwikPen SUBCUT SCH ×3 (08:45→16:36)
[2021-08-01] MEDS: Losartan 50 MG Tab PO SCH (08:47)
[2021-08-01] MEDS: Atenolol 25 MG Tab PO SCH (08:47)
[2021-08-01] MEDS ORDERED: Magnesium Sulfate/Water 2 GM/50 ML BAG IV SCH (09:00)
[2021-08-01] MEDS: Pregabalin 100 MG Cap PO SCH ×2 (10:32→14:59)
[2021-08-01] MEDS: Magnesium Sulfate/Water 2 GM/50 ML BAG IV SCH ×2 (10:38→17:57)
--- NOTE | 2021-08-01 11:22 | PCM.DCSUM1 ---
Discharge Summary - Hospital Course Brief History: Ms. Forde is a 56-year-old woman who was admitted through the emergency department with swelling and pain in her left foot secondary to underlying cellulitis. - Discharge Data Discharge Date: 08/01/21 Discharge Disposition: DC/Tfer to Acute Hospital 02 Condition: Poor - Referral to Home Health Primary Care Physician: Ada Rooj FIRE LIEUTENANT - Discharge Diagnosis/Problem(s) (1) PAD (peripheral artery disease) SNOMED Code(s): 592957024 ICD Code: I73.9 - PERIPHERAL VASCULAR DISEASE, UNSPECIFIED Status: Acute Current Visit: Yes (2) Cellulitis of foot, left SNOMED Code(s): 476810730 ICD Code: L03.116 - CELLULITIS OF LEFT LOWER LIMB Status: Acute Priority: High Current Visit: Yes (3) Tobacco use SNOMED Code(s): 612702106 ICD Code: Z72.0 - TOBACCO USE Status: Chronic Priority: High Current Visit: Yes (4) Diabetes type 2, uncontrolled SNOMED Code(s): 289853558, 736478841 ICD Code: E11.65 - TYPE 2 DIABETES MELLITUS WITH HYPERGLYCEMIA Status: Acute Priority: High Current Visit: Yes Qualifiers: Glycemic state: with hyperglycemia Qualified Code(s): E11.65 - Type 2 diabetes mellitus with hyperglycemia - Patient Summary/Data Consults: Consultations 07/30/21 20:07 Consult to Physician [CONS] Routine Consulting Provider: Pablo Rojo Call Completed to Consulting Physician: Yes Reason for Consult: diabetic left foot infection Person Notified: Dr. Pablo Rojo, Surgeon Date Notified: 07/30/21 Time Notified: 19:00 Special Instructions: Ct scan left foot evaluation in am Hospital Course: Ms. Forde is a 56-year-old woman who was admitted through the emergency department with swelling, erythema, and pain of her left foot secondary to underlying cellulitis. She has a longstanding history of poorly controlled type 2 diabetes mellitus. She also has known peripheral arterial disease involving her left leg. She is status post angioplasty and stent placement in the leg earlier this year. She felt like she had stepped on something 2 days prior to admission and then noted progressive swelling and erythema of her left foot. Because of progressive symptoms she presented to the emergency department. White blood cell count was found to be elevated and it was felt like she had a cellulitis of her left foot. CT scan of the foot was obtained and showed evidence of cellulitis but no obvious abscess. She was started on IV antibiotic therapy and admitted to the hospital. Overnight she did receive IV fluids these were discontinued the next day. On the day after admission she was seen and evaluated by Dr. Rojo for surgical consult. Arterial Doppler studies were obtained and showed monophasic flow throughout the left leg. She remained on antibiotic therapy with Zyvox and meropenem. Dr. Rojo recommended that she be transferred for further evaluation of her peripheral arterial disease of the left leg. She has been accepted in transfer by Dr. Plaza [facility] in [facility]. She will be transferred via [facility] ambulance. - Patient Instructions Diet: Diabetic Diet Activity: As Tolerated Other/Special Instructions: Transferred to [facility] - Discharge Plan *PRESCRIPTION DRUG MONITORING PROGRAM REVIEWED*: Not Applicable *COPY OF PRESCRIPTION DRUG MONITORING REPORT IN PATIENT SHAKIRA: Not Applicable Home Medications: Home Meds Pregabalin [Lyrica] 100 mg PO TID 10/09/14 [History] atenoloL [Atenolol] 50 mg PO DAILY 11/27/14 [History] Aspirin [Halfprin] 81 mg PO DAILY 11/23/20 [History] Clopidogrel [Plavix] 1 tab PO DAILY 07/30/21 [History] Losartan [Cozaar] 25 mg PO DAILY 07/30/21 [History] metFORMIN [Glucophage] 1,000 mg PO BIDMEALS 07/30/21 [History] Linezolid [Zyvox] 600 mg IV Q12H bag 08/01/21 [Rx] Meropenem [Merrem] 1 gm IV Q8H sdv 08/01/21 [Rx] Patient Handouts: Fall Prevention in the Home, Adult, [id number], Cellulitis, Adult, [id number] Referrals: Ada Rojo NP [Primary Care Provider] - - Discharge Summary/Plan Comment DC Time >30 min.: No Total # of Minutes for Discharge Time: 25 - Patient Data Vitals - Most Recent: Last Vital Signs Temp 99.1 F 08/01/21 07:57 Pulse 81 08/01/21 08:47 Resp 18 08/01/21 07:57 BP 139/72 08/01/21 08:47 Pulse Ox 96 08/01/21 07:57 Weight - Most Recent: 131 lb I&O - Last 24 hours: Intake & Output 07/31/21 08/01/21 08/01/21 22:59 06:59 14:59 Intake Total 1400 940 300 Output Total 400 Balance 1000 940 300 Lab Results - Last 24 hrs: Laboratory Results - last 24 hr 07/31/21 07/31/21 07/31/21 Range/Units 11:28 16:24 21:04 WBC (4.5-11.0) K/uL RBC (3.30-5.50) M/uL Hgb (12.0-15.0) g/dL Hct (36.0-48.0) % MCV (80-98) fL MCH (27-31) pg MCHC (32-36) % Plt Count (150-400) K/uL Neut % (Auto) (36-66) % Lymph % (Auto) (24-44) % Grant % (Auto) (2-6) % Eos % (Auto) (2-4) % Baso % (Auto) (0-1) % Sodium (140-148) mmol/L Potassium (3.6-5.2) mmol/L Chloride (100-108) mmol/L Carbon Dioxide (21-32) mmol/L Anion Gap (5.0-14.0) mmol/L BUN (7-18) mg/dL Creatinine (0.6-1.0) mg/dL Est Cr Clr Drug Dosing mL/min Estimated GFR (MDRD) (>60) Glucose (74-106) mg/dL POC Glucose 157 H 150 H 142 H (74-106) mg/dL Calcium (8.5-10.1) mg/dL Phosphorus (2.5-4.9) mg/dL Magnesium (1.8-2.4) mg/dL Total Bilirubin (0.2-1.0) mg/dL AST (15-37) U/L ALT (12-78) U/L Alkaline Phosphatase (46-116) U/L Total Protein (6.4-8.2) g/dL Albumin (3.4-5.0) g/dL Globulin (2.3-3.5) g/dL Albumin/Globulin Ratio (1.2-2.2) 08/01/21 08/01/2122 Range/Units 04:40 04:40 07:33 WBC 18.0 H (4.5-11.0) K/uL RBC 3.42 (3.30-5.50) M/uL Hgb 9.6 L (12.0-15.0) g/dL Hct 28.8 L (36.0-48.0) % MCV 84 (80-98) fL MCH 28 (27-31) pg MCHC 33 (32-36) % Plt Count 294 (150-400) K/uL Neut % (Auto) 71.0 H (36-66) % Lymph % (Auto) 20.0 L (24-44) % Grant % (Auto) 5.8 (2-6) % Eos % (Auto) 2.2 (2-4) % Baso % (Auto) 0.3 (0-1) % Sodium 139 L (140-148) mmol/L Potassium 3.8 (3.6-5.2) mmol/L Chloride 105 (100-108) mmol/L Carbon Dioxide 22 (21-32) mmol/L Anion Gap 15.8 H (5.0-14.0) mmol/L BUN 11 (7-18) mg/dL Creatinine 0.7 (0.6-1.0) mg/dL Est Cr Clr Drug Dosing 72.47 mL/min Estimated GFR (MDRD) > 60 (>60) Glucose 103 (74-106) mg/dL POC Glucose 127 H (74-106) mg/dL Calcium 8.1 L (8.5-10.1) mg/dL Phosphorus 2.7 (2.5-4.9) mg/dL Magnesium 1.5 L (1.8-2.4) mg/dL Total Bilirubin 0.4 (0.2-1.0) mg/dL AST 8 L (15-37) U/L ALT 10 L (12-78) U/L Alkaline Phosphatase 74 (46-116) U/L Total Protein 6.0 L (6.4-8.2) g/dL Albumin 1.9 L (3.4-5.0) g/dL Globulin 4.1 H (2.3-3.5) g/dL Albumin/Globulin Ratio 0.5 L (1.2-2.2) JASON Results - Last 24 hrs: Microbiology 07/30/21 16:00 Gram Stain - Final Toe, Left - Left Big Wound Culture - Preliminary Streptococcus Group A 07/30/21 18:35 Aerobic Blood Culture - Preliminary Blood - Arm, Right NO GROWTH AFTER 1 DAY Anaerobic Blood Culture - Preliminary NO GROWTH AFTER 1 DAY 07/30/21 18:22 Aerobic Blood Culture - Preliminary Blood - Arm, Right NO GROWTH AFTER 1 DAY Anaerobic Blood Culture - Preliminary NO GROWTH AFTER 1 DAY Med Orders - Current: Current Medications Acetaminophen (Acetaminophen 325 Mg Tab) 650 mg PO Q4H PRN PRN Reason: Pain (Mild 1-3)/fever Albuterol (Albuterol 0.083% 2.5 Mg/3 Ml Neb Soln) 2.5 mg NEB Q4H PRN PRN Reason: Shortness Of Breath/wheezing Atenolol (Atenolol 25 Mg Tab) 50 mg PO DAILY [facility] Last Admin: 08/01/21 08:47 Dose: 50 mg Documented by: Bisacodyl (Bisacodyl 5 Mg Tab) 5 mg PO DAILY PRN PRN Reason: Constipation Docusate Sodium (Docusate Sodium 100 Mg Cap) 100 mg PO BID PRN PRN Reason: Constipation Enoxaparin Sodium (Enoxaparin 40 Mg/0.4 Ml Syringe) 40 mg SUBCUT Q24H [facility] Last Admin: 07/31/21 21:36 Dose: 40 mg Documented by: Hydromorphone HCl (Hydromorphone 0.5 Mg/0.5 Ml Syringe) 0.5 mg IVPUSH Q2H PRN PRN Reason: Pain (moderate 4-6) Last Admin: 08/01/21 08:25 Dose: 0.5 mg Documented by: Meropenem 1 gm/ Sodium (Chloride) 100 mls @ 200 mls/hr IV Q8H [facility] Last Admin: 08/01/21 05:43 Dose: 200 mls/hr Documented by: Linezolid 600 mg/ Premix 300 mls @ 300 mls/hr IV Q12H [facility] Last Admin: 08/01/21 08:33 Dose: 300 mls/hr Documented by: Magnesium Sulfate (Magnesium Sulfate In Water 2 Gm/50 Ml) 2 gm in 50 mls @ 25 mls/hr IV Q6H [facility] Stop: 08/03/21 06:29 Last Admin: 08/01/21 10:38 Dose: 25 mls/hr Documented by: Insulin Human Lispro (Insulin Lispro 100 Unit/Ml 3 Ml Kwikpen) 0 unit SUBCUT QIDACANDBED [facility]; Protocol Last Admin: 08/01/21 08:45 Dose: Not Given Documented by: Losartan Potassium (Losartan 50 Mg Tab) 25 mg PO DAILY [facility] Last Admin: 08/01/21 08:47 Dose: 25 mg Documented by: Ondansetron HCl (Ondansetron 4 Mg Tab.Dis) 4 mg PO Q6H PRN PRN Reason: Nausea able to take PO Ondansetron HCl (Ondansetron 4 Mg/2 Ml Sdv) 4 mg IV Q4H PRN PRN Reason: Nausea/Vomiting Oxycodone/Acetaminophen (Acetaminophen/Oxycodone 325-5 Mg Tab) 1 tab PO Q4H PRN PRN Reason: Pain (moderate 4-6) Last Admin: 08/01/21 08:24 Dose: 1 tab Documented by: Pantoprazole Sodium (Pantoprazole 40 Mg Tab.Cr) 40 mg PO BEDTIME [facility] Last Admin: 07/31/21 21:36 Dose: 40 mg Documented by: Pregabalin (Pregabalin 100 Mg Cap) 100 mg PO TID [facility] Last Admin: 08/01/21 10:32 Dose: 100 mg Documented by: Discontinued Medications Enoxaparin Sodium (Enoxaparin 40 Mg/0.4 Ml Syringe) 40 mg SUBCUT DAILY [facility] Last Admin: 07/30/21 21:21 Dose: 40 mg Documented by: Hydromorphone HCl (Hydromorphone 0.5 Mg/0.5 Ml Syringe) 0.5 mg IVPUSH ONETIME ONE Stop: 07/30/21 19:15 Last Admin: 07/30/21 19:21 Dose: 0.5 mg Documented by: Cefazolin Sodium 1 gm/ Sodium (Chloride) 50 mls @ 100 mls/hr IV ONETIME ONE Stop: 07/30/21 16:47 Last Admin: 07/30/21 16:27 Dose: 100 mls/hr Documented by: Ertapenem 1 gm/ Sodium (Chloride) 100 mls @ 200 mls/hr IV ONETIME ONE Stop: 07/30/21 17:30 Last Admin: 07/30/21 17:10 Dose: 200 mls/hr Documented by: Sodium Chloride (Normal Saline) 1,000 mls @ 500 mls/hr IV ASDIRECTED [facility] Last Admin: 07/30/21 17:49 Dose: 500 mls/hr Documented by: Sodium Chloride (Normal Saline) 80 mls @ 3 mls/sec IV ASDIRECTED [facility] Last Admin: 07/30/21 19:55 Dose: 3 mls/sec Documented by: Sodium Chloride (Normal Saline) 1,000 mls @ 125 mls/hr IV ASDIRECTED [facility] Last Admin: 07/31/21 06:23 Dose: 125 mls/hr Documented by: Cefazolin Sodium 1 gm/ Sodium (Chloride) 50 mls @ 200 mls/hr IV Q8H [facility] Meropenem 1 gm/ Sodium (Chloride) 50 mls @ 100 mls/hr IV Q8H [facility] Meropenem 500 mg/ Sodium (Chloride) 50 mls @ 100 mls/hr IV Q8H [facility] Last Admin: 07/31/21 01:08 Dose: 100 mls/hr Documented by: Vancomycin HCl 1 gm/ Sodium (Chloride) 250 mls @ 166.667 mls/hr IV Q24H [facility] Last Admin: 07/30/21 21:34 Dose: 166.667 mls/hr Documented by: Vancomycin HCl 1 gm/ Sodium (Chloride) 250 mls @ 165 mls/hr IV Q12H [facility] Iopamidol (Iopamidol 612 Mg/Ml 100 Ml Bottle) 100 ml IV . DIRECTED [facility] Last Admin: 07/30/21 19:55 Dose: 100 ml Documented by: Pantoprazole Sodium (Pantoprazole 40 Mg Vial) 40 mg IV BEDTIME [facility] Last Admin: 07/30/21 21:22 Dose: 40 mg Documented by: Potassium Chloride (Potassium Chloride 20 Meq Tab.Er) 20 meq PO ONETIME ONE Stop: 07/30/21 21:31 Last Admin: 07/30/21 21:32 Dose: 20 meq Documented by: Potassium Chloride (Potassium Chloride 20 Meq Tab.Er) 40 meq PO ONETIME ONE Stop: 07/31/21 08:31 Last Admin: 07/31/21 09:27 Dose: 40 meq Documented by: Potassium Chloride (Potassium Chloride 20 Meq Tab.Er) 40 meq PO ONETIME ONE Stop: 01/06/22 17:01 Last Admin: 07/31/21 17:44 Dose: 40 meq Documented by: Vancomycin HCl (Vancomycin Pharmacy To Dose) 1 gm IV ASDIRECTED [facility] - Exam General: Reports: Alert, Oriented, Cooperative, Mild Distress Lungs: Reports: Clear to Auscultation, Normal Respiratory Effort Cardiovascular: Reports: Regular Rate, Regular Rhythm, No Murmurs GI/Abdominal Exam: Soft, Non-Tender, No Organomegaly, No Distention Extremities: Other (Swelling pain and erythema left foot)
[2021-08-01 18:25] VITALS: BP 126/77; PULSE 81
== END 2021-08-01 18:50 | DRG 638 ==
LOC: JP.ED 15:31 → JP.MS 19:24
PROVIDERS: ADMIT Hospitalist; ATTEND Surgery
DX: E11.628 Type 2 diabetes mellitus with other skin complications (principal); L03.116 Cellulitis of left lower limb; E11.51 Type 2 diabetes mellitus with diabetic peripheral angiopathy without gangrene; E11.65 Type 2 diabetes mellitus with hyperglycemia; H54.7 Unspecified visual loss; E78.00 Pure hypercholesterolemia, unspecified; I10 Essential (primary) hypertension; M06.9 Rheumatoid arthritis, unspecified; F17.210 Nicotine dependence, cigarettes, uncomplicated; E87.6 Hypokalemia; Z20.822 Contact with and (suspected) exposure to COVID-19; Z88.5 Allergy status to narcotic agent; Z79.82 Long term (current) use of aspirin; Z79.899 Other long term (current) drug therapy; Z90.49 Acquired absence of other specified parts of digestive tract; Z79.02 Long term (current) use of antithrombotics/antiplatelets; Z85.3 Personal history of malignant neoplasm of breast
CPT/HCPCS: 0241U; 36415; 73700-LT; 73701-RT; 80048; 80053; 81001; 82947; 83036; 83605; 83735; 84100; 85025; 86140; 87040; 87070; 87077; 87186; 87205; 93925; 93925-26; 96365; 96367; 96375; 99284-25; A9270-GY; C9113; J0690; J1170; J1335; J1650; J1815; J2020; J2185; J3370; J3475; J7030; J7050; Q9967

== ENCOUNTER 2021-09-01 20:00 | Inpatient (IN) | payer MEDICAID ==
[2021-09-01] MEDS ORDERED: Sodium Chloride 0.9% 10 ML Syringe FLUSH PRN (21:34)
[2021-09-01 22:16] LABS: CORONAVIRUS COVID-19 NAA NEGATIVE (NEGATIVE)
[2021-09-02] MEDS ORDERED: Melatonin 3 MG Tab PO PRN
[2021-09-02] MEDS ORDERED: Vancomycin 1 GM SDV IV SCH
[2021-09-02] MEDS ORDERED: Ondansetron 4 MG Tab.DIS PO PRN
[2021-09-02] MEDS ORDERED: Bisacodyl 5 MG Tab PO PRN
[2021-09-02] MEDS ORDERED: Docusate Sodium 100 MG Cap PO PRN
[2021-09-02] MEDS ORDERED: Acetaminophen 325 MG Tab PO PRN
[2021-09-02] MEDS ORDERED: Non-Formulary Medication 1 Each (Insulin Detemir [Levemir] 100 UNIT/ML Pen) SQ SCH
[2021-09-02] MEDS ORDERED: Albuterol 0.083% 2.5 MG/3 ML Neb Soln NEB PRN
[2021-09-02] MEDS ORDERED: Albuterol/Ipratropium 3.0-0.5 MG/3 ML Neb Soln NEB PRN
[2021-09-02] MEDS: HYDROmorphone 1 MG/ML Syringe IVPUSH PRN ×3 (00:17→19:33)
[2021-09-02] MEDS: Insulin Glargine,Human Rec. Analog 100 Units/ML 3 ML Pen SUBCUT SCH ×2 (00:35→21:17)
[2021-09-02] MEDS: Enoxaparin 40 MG/0.4 ML Syringe SUBCUT SCH ×2 (00:38→21:17)
[2021-09-02] MEDS: Sodium Chloride 0.9% 1,000 ML IV SCH ×2 (00:45→08:26)
[2021-09-02] MEDS: Acetaminophen/HYDROcodone 325-5 MG Tab PO PRN ×2 (00:53→08:28)
[2021-09-02] MEDS: Meropenem 1 GM in Sodium Chloride 0.9% 100 ML IV SCH ×2 (08:21→17:45)
[2021-09-02] MEDS: Atenolol 25 MG Tab PO SCH (08:28)
[2021-09-02] MEDS: Pantoprazole 40 MG Tab.CR PO SCH (08:29)
[2021-09-02] MEDS: Insulin Lispro 100 Unit/ML 3 ML KwikPen SUBCUT SCH ×4 (08:29→21:14)
[2021-09-02] MEDS: Losartan 25 MG Tab PO SCH (08:29)
[2021-09-02] MEDS: Nicotine 7 MG/24 Hr Patch TRDERM SCH (08:36)
[2021-09-02] MEDS: Pregabalin 100 MG Cap PO SCH ×3 (08:36→21:17)
[2021-09-02] MEDS ORDERED: Pantoprazole 40 MG Vial IV SCH (09:00)
[2021-09-02] MEDS ORDERED: Sodium Chloride 0.9% 1,000 ML IV SCH (09:30)
[2021-09-02] MEDS: oxyCODONE 5 MG Tab PO PRN ×3 (11:16→22:49)
[2021-09-03] MEDS: Meropenem 1 GM in Sodium Chloride 0.9% 100 ML IV SCH ×3 (00:27→16:50)
[2021-09-03] MEDS: oxyCODONE 5 MG Tab PO PRN ×4 (03:53→21:50)
[2021-09-03] MEDS: Pantoprazole 40 MG Tab.CR PO SCH (07:12)
[2021-09-03] MEDS: HYDROmorphone 1 MG/ML Syringe IVPUSH PRN ×2 (07:12→19:49)
[2021-09-03] MEDS: Insulin Lispro 100 Unit/ML 3 ML KwikPen SUBCUT SCH ×4 (07:22→21:44)
[2021-09-03] MEDS: Aspirin 81 MG Tab.EC PO SCH (08:37)
[2021-09-03] MEDS: Losartan 25 MG Tab PO SCH (08:37)
[2021-09-03] MEDS: Atenolol 25 MG Tab PO SCH (08:38)
[2021-09-03] MEDS: Clopidogrel 75 MG Tab PO SCH (08:38)
[2021-09-03] MEDS: Pregabalin 100 MG Cap PO SCH ×3 (08:41→21:50)
[2021-09-03] MEDS: Nicotine 7 MG/24 Hr Patch TRDERM SCH (08:47)
[2021-09-03] MEDS ORDERED: Gadoteridol 279.3 MG/ML 15 ML SDV IV SCH (13:00)
[2021-09-03] MEDS ORDERED: Insulin Glargine,Human Rec. Analog 100 Units/ML 3 ML Pen SUBCUT SCH (21:00)
[2021-09-04] MEDS: Meropenem 1 GM in Sodium Chloride 0.9% 100 ML IV SCH ×3 (00:49→19:13)
[2021-09-04] MEDS: HYDROmorphone 1 MG/ML Syringe IVPUSH PRN ×2 (00:57→10:05)
[2021-09-04] MEDS: oxyCODONE 5 MG Tab PO PRN ×2 (01:57→06:19)
[2021-09-04] MEDS ORDERED: Potassium Chloride Riders 40 MEQ in Premix Bag 1 BAG IV ONE (06:45)
[2021-09-04] MEDS ORDERED: Potassium Chloride 40 MEQ, Lidocaine 1% 2 ML in Sodium Chloride 0.9% 100 ML IV SCH (07:00)
[2021-09-04] MEDS ORDERED: Ketamine 500 MG/5 ML MDV IV SCH ×3 (07:30→10:45)
[2021-09-04] MEDS: Potassium Chloride 20 MEQ, Lidocaine 1% 2 ML in Sodium Chloride 0.9% 100 ML IV SCH ×3 (07:47→15:43)
[2021-09-04] MEDS ORDERED: Rocuronium 50 MG/5 ML Vial ONE ×2 (07:55→13:15)
[2021-09-04] MEDS ORDERED: Ondansetron 4 MG/2 ML SDV ONE (07:55)
[2021-09-04] MEDS ORDERED: Neostigmine Methylsulfate 1 MG/ML 5 ML Syringe ONE (07:55)
[2021-09-04] MEDS ORDERED: Propofol 200 MG/20 ML SDV ONE (07:55)
[2021-09-04] MEDS ORDERED: Succinylcholine 200 MG/10 ML MDV ONE (07:55)
[2021-09-04] MEDS ORDERED: Glycopyrrolate 0.2 MG/ML 5 ML MDV ONE (07:55)
[2021-09-04] MEDS ORDERED: Dexamethasone 4 MG/ML SDV ONE (07:55)
[2021-09-04] MEDS ORDERED: fentaNYL 250 MCG/5 ML SDV ONE ×2 (07:55→11:40)
[2021-09-04] MEDS: Aspirin 81 MG Tab.EC PO SCH (08:02)
[2021-09-04] MEDS: Losartan 25 MG Tab PO SCH (08:02)
[2021-09-04] MEDS: Clopidogrel 75 MG Tab PO SCH (08:03)
[2021-09-04] MEDS: Atenolol 25 MG Tab PO SCH (08:03)
[2021-09-04] MEDS: Pantoprazole 40 MG Tab.CR PO SCH (08:03)
[2021-09-04] MEDS: Nicotine 7 MG/24 Hr Patch TRDERM SCH (08:09)
[2021-09-04] MEDS: Pregabalin 100 MG Cap PO SCH ×3 (08:09→21:32)
[2021-09-04] MEDS: Insulin Lispro 100 Unit/ML 3 ML KwikPen SUBCUT SCH ×4 (08:10→20:55)
[2021-09-04] MEDS ORDERED: Ketamine 15 MG in Sodium Chloride 0.9% 19.85 ML IV SCH (10:45)
[2021-09-04] MEDS ORDERED: Lactated Ringers 1,000 ML ONE ×2 (10:47→12:19)
[2021-09-04] MEDS: Meropenem 500 MG SDV ONE ×2 (11:30→12:20)
[2021-09-04] MEDS ORDERED: Hydrogen Peroxide 3% Top Soln 240 ML Bottle ONE (13:21)
[2021-09-04] MEDS ORDERED: fentaNYL 100 MCG/2 ML SDV ONE (13:24)
[2021-09-04] MEDS ORDERED: diphenhydrAMINE 50 MG/ML SDV IVPUSH PRN (13:55)
[2021-09-04] MEDS ORDERED: diphenhydrAMINE 25 MG Cap PO PRN (13:55)
[2021-09-04] MEDS ORDERED: Ondansetron 4 MG/2 ML SDV IVPUSH PRN (13:55)
[2021-09-04] MEDS ORDERED: Naloxone 0.4 MG/ML SDV IVPUSH PRN (13:55)
[2021-09-04] MEDS ORDERED: Naloxone 0.4 MG/ML SDV IV PRN (14:00)
[2021-09-04] MEDS: HYDROmorphone/Normal Saline 6 MG/30 ML PCA Vial IV PRN ×2 (14:03→19:36)
[2021-09-04] MEDS: Linezolid 600 MG in Premix Bag 1 BAG IV SCH (14:23)
[2021-09-04] MEDS: Acetaminophen 325 MG Tab PO SCH ×2 (15:42→21:27)
[2021-09-04] MEDS ORDERED: Lactated Ringers 500 ML IV ONE (16:31)
[2021-09-04] MEDS ORDERED: Furosemide 20 MG/2 ML VIAL IVPUSH ONE (21:00)
[2021-09-04] MEDS: Enoxaparin 40 MG/0.4 ML Syringe SUBCUT SCH (21:27)
[2021-09-04] MEDS: Insulin Glargine,Human Rec. Analog 100 Units/ML 3 ML Pen SUBCUT SCH (21:28)
[2021-09-04] MEDS: Lactated Ringers 1,000 ML IV SCH ×2 (23:07→23:52)
[2021-09-05] MEDS: Meropenem 1 GM in Sodium Chloride 0.9% 100 ML IV SCH ×3 (00:51→17:41)
[2021-09-05] MEDS: HYDROmorphone/Normal Saline 6 MG/30 ML PCA Vial IV PRN ×3 (01:02→16:25)
[2021-09-05] MEDS: Linezolid 600 MG in Premix Bag 1 BAG IV SCH ×2 (02:49→14:25)
[2021-09-05] MEDS: Acetaminophen 325 MG Tab PO SCH ×4 (04:05→21:34)
[2021-09-05] MEDS: Insulin Lispro 100 Unit/ML 3 ML KwikPen SUBCUT SCH ×4 (08:06→21:33)
[2021-09-05] MEDS: Pantoprazole 40 MG Tab.CR PO SCH (08:08)
[2021-09-05] MEDS: Atenolol 25 MG Tab PO SCH (08:52)
[2021-09-05] MEDS: Clopidogrel 75 MG Tab PO SCH (08:54)
[2021-09-05] MEDS: Aspirin 81 MG Tab.EC PO SCH (08:54)
[2021-09-05] MEDS ORDERED: Potassium Phos in 0.9 % NaCl 15 MMOL in Premix Bag 1 BAG IV SCH ×2 (09:00)
[2021-09-05] MEDS: Pregabalin 100 MG Cap PO SCH ×3 (09:28→21:38)
[2021-09-05] MEDS: Nicotine 7 MG/24 Hr Patch TRDERM SCH (10:15)
[2021-09-05] MEDS: Losartan 25 MG Tab PO SCH (10:18)
[2021-09-05] MEDS ORDERED: Furosemide 20 MG/2 ML VIAL IVPUSH ONE (11:00)
[2021-09-05] MEDS: oxyCODONE 5 MG Tab PO PRN ×3 (12:12→21:38)
[2021-09-05] MEDS: Potassium Phos in 0.9 % NaCl 15 MMOL in Premix Bag 1 BAG IV SCH ×4 (12:13→14:34)
[2021-09-05] MEDS: Magnesium Sulfate/Water 2 GM in Premix Bag 1 BAG IV SCH ×3 (12:13→22:59)
[2021-09-05] MEDS: Lactated Ringers 1,000 ML IV SCH (12:17)
[2021-09-05] MEDS: Insulin Glargine,Human Rec. Analog 100 Units/ML 3 ML Pen SUBCUT SCH (21:34)
[2021-09-05] MEDS: Enoxaparin 40 MG/0.4 ML Syringe SUBCUT SCH (21:34)
[2021-09-06] MEDS: HYDROmorphone/Normal Saline 6 MG/30 ML PCA Vial IV PRN ×3 (00:19→16:19)
[2021-09-06] MEDS: Meropenem 1 GM in Sodium Chloride 0.9% 100 ML IV SCH ×3 (01:04→16:58)
[2021-09-06] MEDS: Linezolid 600 MG in Premix Bag 1 BAG IV SCH ×2 (01:45→13:54)
[2021-09-06] MEDS: Lactated Ringers 1,000 ML IV SCH (01:45)
[2021-09-06] MEDS: Acetaminophen 325 MG Tab PO SCH ×4 (04:17→21:13)
[2021-09-06] MEDS: oxyCODONE 5 MG Tab PO PRN ×4 (04:39→21:20)
[2021-09-06] MEDS: Magnesium Sulfate/Water 2 GM in Premix Bag 1 BAG IV SCH ×2 (06:09→12:12)
[2021-09-06] MEDS ORDERED: Lactated Ringers 1,000 ML IV SCH ×2 (08:15→10:45)
[2021-09-06] MEDS: Insulin Lispro 100 Unit/ML 3 ML KwikPen SUBCUT SCH ×4 (08:18→21:14)
[2021-09-06] MEDS: Pantoprazole 40 MG Tab.CR PO SCH (08:19)
[2021-09-06] MEDS: Atenolol 25 MG Tab PO SCH (08:21)
[2021-09-06] MEDS: Clopidogrel 75 MG Tab PO SCH (08:22)
[2021-09-06] MEDS: Losartan 25 MG Tab PO SCH (08:22)
[2021-09-06] MEDS: Aspirin 81 MG Tab.EC PO SCH (08:22)
[2021-09-06] MEDS: Nicotine 7 MG/24 Hr Patch TRDERM SCH (08:23)
[2021-09-06] MEDS: Furosemide 20 MG/2 ML VIAL IVPUSH SCH ×2 (09:22→15:40)
[2021-09-06] MEDS: Pregabalin 100 MG Cap PO SCH ×3 (09:22→21:21)
[2021-09-06] MEDS: metFORMIN 500 MG Tab PO SCH (16:58)
[2021-09-06] MEDS: Enoxaparin 40 MG/0.4 ML Syringe SUBCUT SCH (21:12)
[2021-09-06] MEDS: Insulin Glargine,Human Rec. Analog 100 Units/ML 3 ML Pen SUBCUT SCH (21:13)
[2021-09-07] MEDS: Meropenem 1 GM in Sodium Chloride 0.9% 100 ML IV SCH ×3 (01:45→16:51)
[2021-09-07] MEDS: HYDROmorphone/Normal Saline 6 MG/30 ML PCA Vial IV PRN ×4 (01:49→21:15)
[2021-09-07] MEDS: oxyCODONE 5 MG Tab PO PRN ×4 (01:52→19:46)
[2021-09-07] MEDS: Linezolid 600 MG in Premix Bag 1 BAG IV SCH ×2 (03:14→13:53)
[2021-09-07] MEDS: Acetaminophen 325 MG Tab PO SCH ×3 (05:19→15:57)
[2021-09-07] MEDS: Insulin Lispro 100 Unit/ML 3 ML KwikPen SUBCUT SCH ×4 (08:04→21:19)
[2021-09-07] MEDS ORDERED: Furosemide 20 MG/2 ML VIAL IVPUSH ONE (09:00)
[2021-09-07] MEDS: Losartan 25 MG Tab PO SCH (09:01)
[2021-09-07] MEDS: metFORMIN 500 MG Tab PO SCH ×2 (09:01→16:52)
[2021-09-07] MEDS: Pantoprazole 40 MG Tab.CR PO SCH (09:01)
[2021-09-07] MEDS: Lactobacillus Rhamnosus GG (Probiotic) Cap PO SCH ×2 (09:02→21:19)
[2021-09-07] MEDS: Aspirin 81 MG Tab.EC PO SCH (09:04)
[2021-09-07] MEDS: Clopidogrel 75 MG Tab PO SCH (09:06)
[2021-09-07] MEDS: Atenolol 25 MG Tab PO SCH (09:06)
[2021-09-07] MEDS: Nicotine 7 MG/24 Hr Patch TRDERM SCH (09:13)
[2021-09-07] MEDS: Pregabalin 100 MG Cap PO SCH ×3 (09:28→21:18)
[2021-09-07] MEDS: Magnesium Sulfate/Water 2 GM in Premix Bag 1 BAG IV SCH ×2 (10:31→15:57)
[2021-09-07] MEDS ORDERED: fentaNYL 100 MCG/2 ML SDV IVPUSH ONE (14:30)
[2021-09-07] MEDS: Enoxaparin 40 MG/0.4 ML Syringe SUBCUT SCH (21:18)
[2021-09-07] MEDS: Morphine 15 MG Tab.ER PO SCH (21:18)
[2021-09-07] MEDS: Insulin Glargine,Human Rec. Analog 100 Units/ML 3 ML Pen SUBCUT SCH (21:19)
[2021-09-08] MEDS: Acetaminophen 325 MG Tab PO SCH ×5 (00:02→21:23)
[2021-09-08] MEDS: Magnesium Sulfate/Water 2 GM in Premix Bag 1 BAG IV SCH ×5 (00:02→21:22)
[2021-09-08] MEDS: oxyCODONE 5 MG Tab PO PRN (00:07)
[2021-09-08] MEDS: Meropenem 1 GM in Sodium Chloride 0.9% 100 ML IV SCH ×3 (02:07→17:19)
[2021-09-08] MEDS: Linezolid 600 MG in Premix Bag 1 BAG IV SCH ×2 (03:44→13:50)
[2021-09-08] MEDS: HYDROmorphone/Normal Saline 6 MG/30 ML PCA Vial IV PRN (04:36)
[2021-09-08] MEDS: metFORMIN 500 MG Tab PO SCH ×2 (07:55→17:59)
[2021-09-08] MEDS: Pantoprazole 40 MG Tab.CR PO SCH (07:55)
[2021-09-08] MEDS: Insulin Lispro 100 Unit/ML 3 ML KwikPen SUBCUT SCH ×4 (08:02→21:18)
[2021-09-08] MEDS: Losartan 25 MG Tab PO SCH (08:03)
[2021-09-08] MEDS: Lactobacillus Rhamnosus GG (Probiotic) Cap PO SCH ×2 (08:04→20:19)
[2021-09-08] MEDS: Clopidogrel 75 MG Tab PO SCH (08:04)
[2021-09-08] MEDS: Aspirin 81 MG Tab.EC PO SCH (08:04)
[2021-09-08] MEDS: Atenolol 25 MG Tab PO SCH (08:04)
[2021-09-08] MEDS: Pregabalin 100 MG Cap PO SCH ×3 (08:05→20:19)
[2021-09-08] MEDS: HYDROmorphone 2 MG Tab PO PRN ×2 (08:05→15:24)
[2021-09-08] MEDS: Nicotine 7 MG/24 Hr Patch TRDERM SCH (08:05)
[2021-09-08] MEDS: Morphine 15 MG Tab.ER PO SCH (20:19)
[2021-09-08] MEDS: Enoxaparin 40 MG/0.4 ML Syringe SUBCUT SCH (20:19)
[2021-09-08] MEDS: Insulin Glargine,Human Rec. Analog 100 Units/ML 3 ML Pen SUBCUT SCH (21:23)
[2021-09-09] MEDS: Meropenem 1 GM in Sodium Chloride 0.9% 100 ML IV SCH ×3 (00:14→17:41)
[2021-09-09] MEDS: Linezolid 600 MG in Premix Bag 1 BAG IV SCH ×2 (01:38→14:55)
[2021-09-09] MEDS: Acetaminophen 325 MG Tab PO SCH ×4 (03:07→21:19)
[2021-09-09] MEDS: HYDROmorphone 2 MG Tab PO PRN ×4 (03:07→21:14)
[2021-09-09] MEDS: Magnesium Sulfate/Water 2 GM in Premix Bag 1 BAG IV SCH ×4 (03:07→21:20)
[2021-09-09] MEDS: Insulin Lispro 100 Unit/ML 3 ML KwikPen SUBCUT SCH ×4 (07:58→21:18)
[2021-09-09] MEDS: metFORMIN 500 MG Tab PO SCH (07:58)
[2021-09-09] MEDS: Pantoprazole 40 MG Tab.CR PO SCH (07:59)
[2021-09-09] MEDS: Atenolol 25 MG Tab PO SCH (08:00)
[2021-09-09] MEDS: Lactobacillus Rhamnosus GG (Probiotic) Cap PO SCH ×2 (08:00→21:14)
[2021-09-09] MEDS: Clopidogrel 75 MG Tab PO SCH (08:00)
[2021-09-09] MEDS: Aspirin 81 MG Tab.EC PO SCH (08:01)
[2021-09-09] MEDS: Losartan 25 MG Tab PO SCH (08:01)
[2021-09-09] MEDS: Nicotine 7 MG/24 Hr Patch TRDERM SCH (08:01)
[2021-09-09] MEDS: Pregabalin 100 MG Cap PO SCH ×3 (08:07→21:14)
[2021-09-09] MEDS: Enoxaparin 40 MG/0.4 ML Syringe SUBCUT SCH (21:14)
[2021-09-09] MEDS: Morphine 15 MG Tab.ER PO SCH (21:15)
[2021-09-09] MEDS: Insulin Glargine,Human Rec. Analog 100 Units/ML 3 ML Pen SUBCUT SCH (21:18)
[2021-09-10] MEDS: Meropenem 1 GM in Sodium Chloride 0.9% 100 ML IV SCH ×2 (01:27→10:55)
[2021-09-10] MEDS: Linezolid 600 MG in Premix Bag 1 BAG IV SCH (02:19)
[2021-09-10] MEDS: Magnesium Sulfate/Water 2 GM in Premix Bag 1 BAG IV SCH (03:48)
[2021-09-10] MEDS: Acetaminophen 325 MG Tab PO SCH ×2 (03:48→10:55)
[2021-09-10] MEDS: HYDROmorphone 2 MG Tab PO PRN (07:00)
[2021-09-10] MEDS: Insulin Lispro 100 Unit/ML 3 ML KwikPen SUBCUT SCH ×2 (08:37→12:22)
[2021-09-10] MEDS: Pantoprazole 40 MG Tab.CR PO SCH (08:38)
[2021-09-10] MEDS: Losartan 25 MG Tab PO SCH (08:39)
[2021-09-10] MEDS: Atenolol 25 MG Tab PO SCH (08:39)
[2021-09-10] MEDS: Lactobacillus Rhamnosus GG (Probiotic) Cap PO SCH (08:39)
[2021-09-10] MEDS: Aspirin 81 MG Tab.EC PO SCH (08:40)
[2021-09-10] MEDS: Nicotine 7 MG/24 Hr Patch TRDERM SCH (08:40)
[2021-09-10] MEDS: Clopidogrel 75 MG Tab PO SCH (08:40)
[2021-09-10] MEDS: Pregabalin 100 MG Cap PO SCH (08:49)
[2021-09-10 11:16] VITALS: BP 163/80; PULSE 71
== END 2021-09-10 12:15 | disposition home health service (06) | DRG 240 ==
LOC: JP.ED 20:00 → JP.MS 23:38
PROVIDERS: ADMIT Internal Medicine; ATTEND Hospitalist
PROC: 0Y6N0Z9 Detachment at Left Foot, Partial 1st Ray, Open Approach (ICD-10-PCS; principal; 2021-09-04)
DX: E11.52 Type 2 diabetes mellitus with diabetic peripheral angiopathy with gangrene (principal); L03.116 Cellulitis of left lower limb; I96 Gangrene, not elsewhere classified; M86.8X7 Other osteomyelitis, ankle and foot; E11.69 Type 2 diabetes mellitus with other specified complication; Z20.822 Contact with and (suspected) exposure to COVID-19; E11.65 Type 2 diabetes mellitus with hyperglycemia; I10 Essential (primary) hypertension; E78.5 Hyperlipidemia, unspecified; Z79.4 Long term (current) use of insulin; Z88.8 Allergy status to other drugs, medicaments and biological substances; Z79.82 Long term (current) use of aspirin; Z90.49 Acquired absence of other specified parts of digestive tract; Z98.890 Other specified postprocedural states; Z87.19 Personal history of other diseases of the digestive system; Z90.89 Acquired absence of other organs; Z85.3 Personal history of malignant neoplasm of breast; Z72.0 Tobacco use
CPT/HCPCS: 0241U; 36415; 36430; 73660-26-TA; 73660-TA; 73720-LT; 80048; 80053; 80202; 82947; 83735; 83880; 84100; 85025; 85027; 86140; 86850; 86900; 86901; 86920; 86922; 87040; 88307; 88311; 94640; 96365; 97110-GP; 97161-GP; 97164-GP; 97165-GO; 97530-GP; 97535-GP; 97760-GO; 99284-25; 99285; A9270-GY; A9579; J0330; J1100; J1170; J1650; J1815; J1815-GY; J1940; J2020; J2185; J2405; J2704; J2710; J3010; J3370; J3475; J3480; J3490; J7030; J7050; J7120; P9016

== ENCOUNTER 2022-09-28 04:55 | Emergency (ER) | payer MEDICAID ==
[2022-09-28] MEDS ORDERED: Sodium Chloride 0.9% 1,000 ML IV SCH ×2 (05:00→05:45)
[2022-09-28] MEDS ORDERED: fentaNYL 50 MCG/ML SDV IVPUSH ONE ×2 (05:16→06:22)
[2022-09-28] MEDS ORDERED: Cefepime 2 GM in Sodium Chloride 0.9% 50 ML IV ONE (05:33)
[2022-09-28 05:36] LABS: ESTIMATED GFR 18 mL/min (>60)
[2022-09-28] MEDS ORDERED: Norepinephrine Bit/D5W Premix 4 MG in Premix Bag 1 BAG IV SCH (05:45)
[2022-09-28] MEDS ORDERED: Heparin Sodium 5,000 Units/ML Vial IVPUSH ONE ×2 (06:05→06:12)
[2022-09-28 06:10] LABS: CORONAVIRUS COVID-19 NAA NEGATIVE (NEGATIVE)
[2022-09-28] MEDS ORDERED: Heparin Sodium/D5W 25,000 UNITS/500 ML BAG IV SCH (06:15)
[2022-09-28] MEDS ORDERED: LORazepam 2 MG/ML SDV IVPUSH ONE (06:25)
[2022-09-28] MEDS ORDERED: Nitroglycerin/D5W 25 MG/250 ML BOTTLE IV SCH (06:45)
[2022-09-28] MEDS ORDERED: Haloperidol Lactate 5 MG/ML SDV IVPUSH ONE (06:54)
[2022-09-28] MEDS ORDERED: Ketamine 500 MG/5 ML MDV IV ONE (07:13)
[2022-09-28 08:05] VITALS: BP 134/84; PULSE 106
== END 2022-09-28 07:55 ==
LOC: JP.ED 04:55
DX: A41.9 Sepsis, unspecified organism (principal); R65.21 Severe sepsis with septic shock; I21.4 Non-ST elevation (NSTEMI) myocardial infarction; I89.0 Lymphedema, not elsewhere classified; R22.0 Localized swelling, mass and lump, head; I11.0 Hypertensive heart disease with heart failure; I50.9 Heart failure, unspecified; E11.9 Type 2 diabetes mellitus without complications; M19.90 Unspecified osteoarthritis, unspecified site; Z72.0 Tobacco use; Z79.02 Long term (current) use of antithrombotics/antiplatelets; Z79.82 Long term (current) use of aspirin; Z79.84 Long term (current) use of oral hypoglycemic drugs; Z79.899 Other long term (current) drug therapy; Z88.5 Allergy status to narcotic agent; Z20.822 Contact with and (suspected) exposure to COVID-19
CPT/HCPCS: 0241U; 36415; 71045; 80053; 80305; 81001; 83605; 83880; 84145; 84484; 85025; 87040; 93005; 96365; 96367; 96368; 96375; 96376; 99285; J0692; J1630; J1644; J2060; J3010; J3490; J7030; 31500; 93010; 99291